=== PATIENT | female | born 1950 | race Caucasian/White ===

== ENCOUNTER 2019-10-31 18:03 | Inpatient (IN) | payer OTHER, BC ==
--- OUTSIDE RECORDS SUMMARY | 2019-10-31 18:10 | XMS REPORT ---
:1950 [facility] Address [address] [place] [address] Dr. Chappell. [address] [place] [id number] Care Team Providers Name Role Phone Unavailable Unavailable Unavailable Problems This patient has no known problems. Allergies, Adverse Reactions, Alerts This patient has no known allergies or adverse reactions. Medications This patient has no known medications.
[2019-10-31 19:26] LABS: ALT/SGPT 22 U/L (12-78); AST/SGOT 17 U/L (15-37); Albumin 3.5 g/dL (3.4-5.0); Alkaline Phosphatase 77 U/L (45-117); BUN Blood Urea Nitrogen 20 mg/dL (7-18); Bicarbonate 29 mmol/L (21-32); Bilirubin Direct < 0.1 mg/dL (0-0.2); Bilirubin Total 0.3 mg/dL (0.2-1.0); Glucose Level 117 mg/dL (74-106); Lipase 92 U/L (73-393); Potassium 4.1 mmol/L (3.5-5.1); Protein, Total 8.1 g/dL (6.4-8.2); Sodium Level 137 mmol/L (136-145)
[2019-10-31 19:27] LABS: Protime INR 0.97
[2019-10-31 19:29] LABS: Absolute Lymphocytes (CBC) 0.8 K/uL (0.7-4.9); Basophils % 0.5 % (0-1.3); Hematocrit 44.1 % (36.0-45.0); Lymphocytes % 6.4 % (15.3-44.8); MPV 9.4 fL (7.6-11.3); RBC Red Blood Cell Count 4.91 M/uL (3.86-4.86)
[2019-10-31] MEDS ORDERED: ONDANSETRON 4 MG/2 ML VIAL ONE (19:41)
[2019-10-31] MEDS ORDERED: MORPHINE 4 MG/ML SYR ONE ×2 (19:41→21:35)
--- NOTE | 2019-10-31 20:26 | RAD REPORT ---
EXAM DESCRIPTION: CT - Abdomen Pelvis W Contrast - 10/31/2019 7:50 pm CLINICAL HISTORY: Abd pain;Abdominal distention, patient has a history of abdominal obstruction COMPARISON: No comparisons TECHNIQUE: Biphasic, helical CT imaging of the abdomen and pelvis was performed following 100 ml non -ionic IV contrast. No oral contrast administered. All CT scans are performed using dose optimization technique as appropriate and may include automated exposure control or mA/KV adjustment according to patient size. FINDINGS: No suspicious findings in the lung bases. The liver, spleen, and pancreas show no suspicious findings. Multiple cysts are scattered in the hepa tic parenchyma. No worrisome liver parenchymal finding. Several gallstones are present. No active gal lbladder process seen. No biliary tree dilatation. Symmetric renal function is seen with no hydronephrosis or suspicious renal mass. No pyelonephritis o r acute parenchymal process. Benign renal cysts are present. Urinary bladder is mostly contracted. No bladder abnormality suspected. Uterus and ovaries show no suspicious findings. No adrenal abnormalit ies. Fluid is distended but not dilated with retained fluid. No gastric wall thickening or mass. Duodenum is unremarkable. Proximal jejunum is normal. Mid jejunum to the mid ileum shows multiple dilated smal l bowel loops. There is an abrupt transition in the anterior mid abdomen abutting the anterior abdomi nal wall. No mass lesion seen. There are postsurgical changes to the midline abdomen. The umbilicus i s not clearly defined. Adhesion is most likely etiology for the small bowel obstruction. Distal to th e transition point the small bowel is decompressed. Most of the colon is decompressed. There is stool in the cecum and ascending colon. No acute colon finding. No free air, free fluid or inflammatory s tranding. No mass or bulky lymphadenopathy. No suspicious bony findings. IMPRESSION: Small bowel obstruction pattern with an abrupt transition mid ileum level where the silvia l abuts the anterior abdominal wall approximate level of the umbilicus. No mass is present. Adhesion is the most likely etiology. No free air, abscess or surgically emergent finding.
--- NOTE | 2019-10-31 20:30 | RAD REPORT ---
EXAM DESCRIPTION: RAD - Chest Single View - 10/31/2019 7:23 pm CLINICAL HISTORY: ABDOMINAL DISTENTION, abdominal pain, history of bowel obstruction COMPARISON: No comparisons TECHNIQUE: AP portable chest image was obtained 10/31/2019 7:23 pm . FINDINGS: No focal mass or consolidation. No significant failure or volume overload. Prominent inter stitial opacification present. This is most likely chronic fibrosis. No comparison is available. Mild edema or infiltrate are possible. Heart and vasculature are normal. No measurable pleural effusion a nd no pneumothorax. No acute bony abnormality seen. No acute aortic findings suspected. IMPRESSION: Prominent interstitial lung pattern most likely fibrosis.
[2019-10-31] MEDS ORDERED: NA CHLORIDE 0.9% 1,000 ML ONE (21:21)
--- NOTE | 2019-10-31 21:32 | ER ---
Nurse's Notes [facility] Name: Korina Flores Age: 69 yrs Sex: Female : 1950 Arrival Date: 10/31/2019 Time: 18:05 Bed 16 Private MD: Diagnosis: Small bowel obstruction Presentation: 10/31 18:22 Presenting complaint: Patient states: I have constipation and bowel blockage before iw which I had 3 surgeries for a long time ago. Around noon today, I have been having cramps and my abdomen is distended. Denies N/V at this time. Reports BM twice today, last time was 1645. Transition of care: patient was not received from another setting of care. Onset of symptoms was October 31, 2019. Risk Assessment: Do you want to hurt yourself or someone else? Patient reports no desire to harm self or others. Initial Sepsis Screen: Does the patient meet any 2 criteria? No. Patient's initial sepsis screen is negative. Does the patient have a suspected source of infection? No. Patient's initial sepsis screen is negative. Care prior to arrival: None. 18:22 Method Of Arrival: Ambulatory iw 18:22 Acuity: SARY 3 iw Triage Assessment: 18:27 General: Appears in no apparent distress. uncomfortable, Behavior is calm, cooperative, iw appropriate for age. Historical: - Allergies: 18:27 PENICILLINS; iw - PMHx: 18:27 COPD; Asthma; Hypothyroidism; iw - PSHx: 18:27 Appendectomy; Abdominal Surgeries for the blockage x 3; iw - Immunization history:: Adult Immunizations up to date, Pneumococcal vaccine is up to date, Flu vaccine is up to date. - Coronavirus screen:: The patient has NOT traveled to [place] in the past 14 days. The patient has NOT had contact with known/suspected case of Coronavirus?. - Social history:: Smoking status: Patient denies any tobacco usage or history of. - Ebola Screening: : Patient negative for fever greater than or equal to 101.5 degrees Fahrenheit, and additional compatible Ebola Virus Disease symptoms Patient denies exposure to infectious person Patient denies travel to an Ebola-affected area in the 21 days before illness onset No symptoms or risks identified at this time. Screenin:37 Abuse screen: Denies threats or abuse. Denies injuries from another. Nutritional hb screening: No deficits noted. Tuberculosis screening: No symptoms or risk factors identified. Fall Risk None identified. Assessment: 18:37 General: Appears in no apparent distress. Behavior is calm, cooperative. Pain: Pain hb currently is 10 out of 10 on a pain scale. Neuro: Level of Consciousness is awake, alert, obeys commands, Oriented to person, place, time, situation. Cardiovascular: Capillary refill < 3 seconds Patient's skin is warm and dry. Respiratory: Airway is patent Respiratory effort is even, unlabored, Respiratory pattern is regular, symmetrical. GI: Abdomen is distended, Bowel sounds present X 4 quads. Abd is soft and non tender X 4 quads. : No signs and/or symptoms were reported regarding the genitourinary system. EENT: No signs and/or symptoms were reported regarding the EENT system. Derm: Skin is pink, warm \T\ dry. Musculoskeletal: No signs and/or symptoms reported regarding the musculoskeletal system. 20:00 Reassessment: Patient appears in no apparent distress at this time. Patient and/or rv family updated on plan of care and expected duration. Pain level reassessed. Patient is alert, oriented x 3, equal unlabored respirations, skin warm/dry/pink. PATIENT HAD AN EPISODE OF DESATURATION. OXYGEN SUPPLEMENT AT 3 LPM. Reassessment: Patient appears in no apparent distress at this time. Patient and/or family updated on plan of care and expected duration. Pain level reassessed. Patient is alert, oriented x 3, equal unlabored respirations, skin warm/dry/pink. 21:17 Reassessment: Patient appears in no apparent distress at this time. Patient and/or rv family updated on plan of care and expected duration. Pain level reassessed. Patient is alert, oriented x 3, equal unlabored respirations, skin warm/dry/pink. Vital Signs: 18:27 BP 115 / 87; Pulse 94; Resp 16 S; Temp 98.1(O); Pulse Ox 92% on R/A; Weight 64.86 kg iw (R); Height 5 ft. 5 in. (165.10 cm) (R); Pain 10/10; 20:00 BP 103 / 58; Pulse 84; Resp 15; Pulse Ox 96% on R/A; rv 21:00 BP 122 / 76; Pulse 87; Resp 17; Pulse Ox 99% on 3 lpm NC; rv 22:00 BP 132 / 76; Pulse 82; Resp 17; Pulse Ox 98% on R/A; rv 23:00 BP 104 / 61; Pulse 83; Resp 14; Pulse Ox 97% on R/A; rv 18:27 Body Mass Index 23.80 (64.86 kg, 165.10 cm) iw 21:00 PATIENT HAD AN EPISODE OF DESATURATION rv ED Course: 18:05 Patient arrived in ED. as 18:25 Triage completed. iw 18:27 Arm band placed on right wrist. iw 18:28 Akanksha Renee, RN is Primary Nurse. hb 18:32 Hardy Mercado PA is PHCP. cp 18:32 Duong English MD is Attending Physician. cp 18:37 Patient has correct armband on for positive identification. Bed in low position. Call hb light in reach. Side rails up X 1. 18:56 Inserted saline lock: 22 gauge in left antecubital area, using aseptic technique. Blood hb collected. 19:21 Amos Waggoner MD is Attending Physician. cp 21:30 Alonso Roque MD is Hospitalizing Provider. cp 23:21 Primary Nurse role handed off by Akanksha Renee RN rv 23:21 Jn Orellana, JANINE is Primary Nurse. rv 23:55 No provider procedures requiring assistance completed. Patient admitted, IV remains in rv place. Administered Medications: 19:40 Drug: morphine 4 mg Route: IVP; Site: right antecubital; 21:23 Follow up: Response: No adverse reaction; Pain is decreased; RASS: Alert and Calm (0) rv 19:42 Drug: Zofran 4 mg Route: IVP; Site: right antecubital; wh 21:23 Follow up: Response: No adverse reaction rv 21:23 Drug: NS 0.9% 1000 ml Route: IV; Rate: 1000 ml/hr; Site: right antecubital; rv 23:59 Follow up: IV Status: Completed infusion; IV Intake: 1000ml rv 21:35 Drug: morphine 4 mg {Note: RASS 0.} Route: IVP; Site: right antecubital; rv 23:58 Follow up: Response: No adverse reaction; Pain is decreased; RASS: Alert and Calm (0) rv 21:37 Drug: metroNIDAZOLE 500 mg Volume: 100 ml; Route: IVPB; Infused Over: 30 mins; Site: rv right antecubital; 22:08 Follow up: IV Status: Completed infusion rv 22:08 Drug: Cipro 400 mg Volume: 200 ml; Route: IVPB; Infused Over: 60 mins; Site: right rv antecubital; 23:58 Follow up: IV Status: Completed infusion rv Intake: 23:59 IV: 1000ml; Total: 1000ml. rv Outcome: 21:31 Decision to Hospitalize by Provider. cp 11/01 00:00 Admitted to Med/surg accompanied by nurse, via wheelchair, room 216, with chart, Report rv called to RD MEHTA Condition: good Discharge instructions given to patient, Instructed on the need for admit, Demonstrated understanding of instructions. 00:00 Patient left the ED. rv Signatures: Brinda Rosado Irene, RN RN Hardy Mercado PA PA cp Akanksha Renee RN RN Rod Hamilton Jn Orellana RN RN rv Corrections: (The following items were deleted from the chart) 10/31 19:00 18:56 Inserted saline lock: 22 gauge in right antecubital area, using aseptic hb technique. Blood collected. hb 23:51 21:13 BP 132 / 76; Pulse 82bpm; Resp 17bpm; Pulse Ox 98% RA; rv rv
--- NOTE | 2019-10-31 21:32 | EDPHYS ---
Physician Documentation [facility] Name: Kornia Flores Age: 69 yrs Sex: Female : 1950 Arrival Date: 10/31/2019 Time: 18:05 Bed 16 Private MD: ED Physician Amos Waggoner HPI: 10/31 18:45 This 69 yrs old Female presents to ER via Ambulatory with complaints of cp Constipation. 18:45 The patient presents with abdominal pain that is diffuse, abdominal distention that is cp diffuse. Onset: The symptoms/episode began/occurred today. 18:45 The symptoms do not radiate. Associated signs and symptoms: Pertinent positives: cp constipation, nausea, Pertinent negatives: diarrhea, fever, vomiting. The patient has experienced similar episodes in the past, today's symptoms are similar, to when the patient was apparently diagnosed with small bowel obstruction. Historical: - Allergies: 18:27 PENICILLINS; iw - PMHx: 18:27 COPD; Asthma; Hypothyroidism; iw - PSHx: 18:27 Appendectomy; Abdominal Surgeries for the blockage x 3; iw - Immunization history:: Adult Immunizations up to date, Pneumococcal vaccine is up to date, Flu vaccine is up to date. - Coronavirus screen:: The patient has NOT traveled to [place] in the past 14 days. The patient has NOT had contact with known/suspected case of Coronavirus?. - Social history:: Smoking status: Patient denies any tobacco usage or history of. - Ebola Screening: : Patient negative for fever greater than or equal to 101.5 degrees Fahrenheit, and additional compatible Ebola Virus Disease symptoms Patient denies exposure to infectious person Patient denies travel to an Ebola-affected area in the 21 days before illness onset No symptoms or risks identified at this time. ROS: 18:50 Constitutional: Negative for body aches, chills, fever, poor PO intake. cp 18:50 Eyes: Negative for injury, pain, redness, and discharge. cp 18:50 ENT: Negative for drainage from ear(s), ear pain, sore throat, difficulty swallowing, difficulty handling secretions. 18:50 Cardiovascular: Negative for chest pain, palpitations. 18:50 Respiratory: Negative for cough, shortness of breath, wheezing. 18:50 Abdomen/GI: Positive for abdominal pain, nausea, constipation, Negative for vomiting, diarrhea, black/tarry stool, rectal bleeding. 18:50 : Negative for urinary symptoms. 18:50 Skin: Negative for cellulitis, rash. 18:50 Neuro: Negative for altered mental status, headache, weakness. 18:50 All other systems are negative. Exam: 19:00 Constitutional: The patient appears in no acute distress, alert, awake, cp non-diaphoretic, non-toxic, well developed, well nourished, uncomfortable. 19:00 Head/Face: Normocephalic, atraumatic. cp 19:00 Eyes: Periorbital structures: appear normal, Conjunctiva: normal, no exudate, no injection, Sclera: no appreciated abnormality, Lids and lashes: appear normal, bilaterally. 19:00 ENT: External ear(s): are unremarkable, Nose: is normal, Mouth: Lips: moist, Oral mucosa: pink and intact, moist, Posterior pharynx: is normal, airway is patent, no erythema, no exudate. 19:00 Chest/axilla: Inspection: normal, Palpation: is normal, no crepitus, no tenderness. 19:00 Cardiovascular: Rate: normal, Rhythm: regular, Edema: is not appreciated, JVD: is not appreciated. 19:00 Respiratory: the patient does not display signs of respiratory distress, Respirations: normal, no use of accessory muscles, no retractions, labored breathing, is not present, Breath sounds: are clear throughout, no decreased breath sounds, no stridor, no wheezing. 19:00 Abdomen/GI: Inspection: scar(s), are noted in the midline lower abdomen, Bowel sounds: active, all quadrants, Palpation: soft, in all quadrants, moderate abdominal tenderness, in all quadrants, voluntary guarding, is elicited in all quadrants. 19:00 Back: pain, is absent, ROM is normal. 19:00 Neuro: Orientation: to person, place \T\ time. Mentation: is normal, Motor: moves all fours, strength is normal. 19:15 ECG was reviewed by the Attending Physician. cp Vital Signs: 18:27 BP 115 / 87; Pulse 94; Resp 16 S; Temp 98.1(O); Pulse Ox 92% on R/A; Weight 64.86 kg iw (R); Height 5 ft. 5 in. (165.10 cm) (R); Pain 10/10; 20:00 BP 103 / 58; Pulse 84; Resp 15; Pulse Ox 96% on R/A; rv 21:00 BP 122 / 76; Pulse 87; Resp 17; Pulse Ox 99% on 3 lpm NC; rv 22:00 BP 132 / 76; Pulse 82; Resp 17; Pulse Ox 98% on R/A; rv 23:00 BP 104 / 61; Pulse 83; Resp 14; Pulse Ox 97% on R/A; rv 18:27 Body Mass Index 23.80 (64.86 kg, 165.10 cm) iw 21:00 PATIENT HAD AN EPISODE OF DESATURATION rv MDM: 18:34 Patient medically screened. cp 21:30 Data reviewed: vital signs, nurses notes, lab test result(s), radiologic studies, CT cp scan, plain films, and as a result, I will admit patient. 21:30 Test interpretation: by ED physician or midlevel provider: ECG, plain radiologic cp studies, chest xray negative for infiltrates. 10/31 18:43 Order name: Basic Metabolic Panel cp 10/31 18:43 Order name: CBC with Diff cp 10/31 18:43 Order name: LFT's cp 10/31 18:43 Order name: Magnesium cp 10/31 18:43 Order name: PT-INR cp 10/31 18:43 Order name: Lipase cp 10/31 19:27 Order name: Basic Metabolic Panel; Complete Time: 20:29 EDMS 10/31 20:29 Interpretation: Normal except: GLUC 117; BUN 20; GFR 61. cp 10/31 19:27 Order name: Liver (Hepatic) Function; Complete Time: 20:29 EDMS 10/31 21:27 Interpretation: Normal except: GLOB 4.6; A/G 0.8. cp 10/31 19:27 Order name: Magnesium; Complete Time: 20:29 EDMS 10/31 19:27 Order name: Lipase; Complete Time: 20:29 EDMS 02 19:41 Order name: CBC with Automated Diff EDMS 10/31 20:29 Interpretation: Normal except: WBC 13.1; RBC 4.91; SAVANAH% 87.2; LYM% 6.4; NEUT A 11.4. cp 10/31 19:41 Order name: Protime (+INR); Complete Time: 20:29 EDMS 10/31 21:18 Order name: Urine Microscopic Only 10/31 21:57 Order name: Urine Microscopic Only EDMA 10/31 18:43 Order name: XRAY Chest (1 view) 10/31 18:43 Order name: EKG; Complete Time: 18:47 10/31 18:43 Order name: Cardiac monitoring; Complete Time: 19:28 10/31 18:43 Order name: EKG - Nurse/Tech; Complete Time: 19:27 10/31 19:03 Order name: CT Abd/Pelvis - IV Contrast Only 10/31 20:31 Order name: CT; Complete Time: 21:23 EDMA 10/31 21:30 Interpretation: Report reviewed. 10/31 20:38 Order name: RAD; Complete Time: 21:23 [facility] 10/31 21:58 Order name: CBC Smear Scan [facility] 10/31 22:10 Order name: Urine Dipstick--Ancillary (enter results) ar5 10/31 23:49 Order name: Urine Dipstick-Ancillary [facility] 10/31 18:43 Order name: IV Saline Lock; Complete Time: 18:56 10/31 18:43 Order name: Labs collected and sent; Complete Time: 18:56 10/31 18:43 Order name: O2 Per Protocol; Complete Time: 18:56 10/31 18:43 Order name: O2 Sat Monitoring; Complete Time: 18:56 10/31 21:18 Order name: Urine Dipstick-Ancillary (obtain specimen); Complete Time: 21:42 cp EC:15 Rate is 78 beats/min. Rhythm is regular. MO interval is normal. QRS interval is normal. cp QT interval is normal. T waves are Inverted in leads aVL, V2. Interpreted by me. Reviewed by me. Administered Medications: 19:40 Drug: morphine 4 mg Route: IVP; Site: right antecubital; wh 21:23 Follow up: Response: No adverse reaction; Pain is decreased; RASS: Alert and Calm (0) rv 19:42 Drug: Zofran 4 mg Route: IVP; Site: right antecubital; wh 21:23 Follow up: Response: No adverse reaction rv 21:23 Drug: NS 0.9% 1000 ml Route: IV; Rate: 1000 ml/hr; Site: right antecubital; rv 23:59 Follow up: IV Status: Completed infusion; IV Intake: 1000ml rv 21:35 Drug: morphine 4 mg {Note: RASS 0.} Route: IVP; Site: right antecubital; rv 23:58 Follow up: Response: No adverse reaction; Pain is decreased; RASS: Alert and Calm (0) rv 21:37 Drug: metroNIDAZOLE 500 mg Volume: 100 ml; Route: IVPB; Infused Over: 30 mins; Site: rv right antecubital; 22:08 Follow up: IV Status: Completed infusion rv 22:08 Drug: Cipro 400 mg Volume: 200 ml; Route: IVPB; Infused Over: 60 mins; Site: right rv antecubital; 23:58 Follow up: IV Status: Completed infusion rv Disposition: 11/01 00:43 Co-signature as Attending Physician, Amos Waggoner MD. rn Disposition: 10/31/19 21:31 Hospitalization ordered by Alonso Roque for Inpatient Admission. Preliminary diagnosis is Small bowel obstruction. - Bed requested for Telemetry/MedSurg (Inpatient). - Status is Inpatient Admission. rv - Condition is Stable. - Problem is new. - Symptoms have improved. Signatures: Dispatcher [employer] EDMS Kathi Yoo RN RN mw Williams, Irene, RN RN iw Nieto, Roman, MD MD rn Page, Corey, PA PA cp Habalo, Winsy wh Vicente, Ronaldo, RN RN rv Corrections: (The following items were deleted from the chart) 10/31 20:29 20:29 Normal except: WBC 13.1; RBC 4.91. cp cp 23:43 21:31 Hospitalization Ordered by Alonso Roque MD for Inpatient Admission. Preliminary mw diagnosis is Small bowel obstruction. Bed requested for Telemetry/MedSurg (Inpatient). Status is Inpatient Admission. Condition is Stable. Problem is new. Symptoms have improved. cp 11/01 00:00 10/31 23:43 10/31/2019 21:31 Hospitalization Ordered by Alonso Roque MD for Inpatient rv Admission. Preliminary diagnosis is Small bowel obstruction. Bed requested for Telemetry/MedSurg (Inpatient). Status is Inpatient Admission. Condition is Stable. Problem is new. Symptoms have improved. mw
[2019-10-31] MEDS ORDERED: CIPROFLOXACIN 400mg IV 400 MG/200 ML BAG IV ONE (21:35)
[2019-10-31] MEDS ORDERED: METRONIDAZOLE 500mg IVPB 500 MG/100 ML BAG IV ONE (21:35)
[2019-10-31 21:56] LABS: Urine Bacteria <20 /HPF (<20); Urine Culture Reflex Order REFLEXED; Urine Mucus 1+ /HPF (NONE SEEN)
[2019-10-31 21:58] LABS: Blood Morphology Comment NOT SEEN (NOT SEEN); Platelet Estimate ADEQ; Urine White Blood Cell Casts OK
[2019-10-31] MEDS ORDERED: ACETAMINOPHEN 650MG/RECT SUPP RECT PRN (23:18)
[2019-10-31] MEDS ORDERED: ONDANSETRON 4 MG/2 ML VIAL IV PRN (23:18)
[2019-10-31] MEDS ORDERED: NA CHLORIDE 0.9% 1,000 ML IV SCH (23:45)
[2019-10-31 23:48] LABS: Urine Blood TRACE (NEG); Urine Glucose NEGATIVE (NEG); Urine Protein NEGATIVE (NEG)
[2019-11-01] MEDS ORDERED: NA CHLORIDE 0.9% 1,000 ML with POTASSIUM CL 20 MEQ IV SCH ×2 (01:01)
[2019-11-01] MEDS ORDERED: ONDANSETRON 4 MG/2 ML VIAL IV PRN (02:10)
[2019-11-01] MEDS ORDERED: NS KCL 20MEQ 1,000 ML IV ONE (02:17)
[2019-11-01] MEDS: METRONIDAZOLE 500mg IVPB 500 MG/100 ML BAG IV SCH ×5 (02:22→23:30)
[2019-11-01 04:38] LABS: Protime INR 0.9
[2019-11-01 04:55] LABS: Absolute Lymphocytes (CBC) 0.3 K/uL (0.7-4.9); Basophils % 0.1 % (0-1.3); Hematocrit 40.3 % (36.0-45.0); Lymphocytes % 2.2 % (15.3-44.8); MPV 9.8 fL (7.6-11.3); RBC Red Blood Cell Count 4.47 M/uL (3.86-4.86)
[2019-11-01 05:01] LABS: Bilirubin Total 0.3 mg/dL (0.2-1.0); Magnesium 1.8 mg/dL (1.8-2.4); Phosphorus 2.8 mg/dL (2.5-4.9); Potassium 4.4 mmol/L (3.5-5.1)
[2019-11-01 06:12] VITALS: BMI 27.0
[2019-11-01] MEDS ORDERED: ALBUTEROL 2.5 MG/3 ML NEB SOL NEB PRN ×2 (07:03→15:00)
--- NOTE | 2019-11-01 07:58 | RAD REPORT ---
EXAM DESCRIPTION: RAD - Abdomen 1 View (KUB) - 11/01/2019 7:27 am CLINICAL HISTORY: follow up SBO COMPARISON: Abdomen Pelvis W Contrast dated 10/31/2019 FINDINGS: NG tube is in good position. Tip is in the antrum or duodenal bulb. Stomach is decompresse d. Contrast is present in the urinary bladder. Stool is present in the left side of the colon. This p ortion of the colon was previously decompressed on the prior day CT study. This would indicate antegr lorenzo movement of bowel content in the colon. Fluid-filled small bowel loops can be occult on the plain film. No progression of the small bowel obstruction process. No free air or pneumatosis. IMPRESSION: NG tube in good position. Stomach is decompressed. No progression of the small bowel traction pattern. No free air or pneumatosis. The presence of stool in the previously decompressed left-side of the colon indicates antegrade movem ent of bowel content through the colon.
[2019-11-01] MEDS: TIOTROPIUM 5 SPRAYS/INHALER IH SCH (09:00)
[2019-11-01] MEDS: NS KCL 20MEQ 1,000 ML IV SCH ×2 (10:02→17:27)
[2019-11-01] MEDS: Levofloxacin500mg IV 500 MG/100 ML BAG IV SCH (10:02)
[2019-11-01] MEDS: ENOXAPARIN 40 MG/0.4 ML SQ SCH (10:03)
--- NOTE | 2019-11-01 10:08 | P.HP ---
Certification for Inpatient Patient admitted to: Inpatient With expected LOS: >2 Midnights Patient will require the following post-hospital care: None Practitioner: I am a practitioner with admitting privileges, knowledge of patient current condition, hospital course, and medical plan of care. Services: Services provided to patient in accordance with Admission requirements found in Title 42 Section 412.3 of the Code of Federal Regulations Patient History Date of Service: 11/01/19 Reason for admission: Small-bowel obstruction History of Present Illness: Patient is a 69-year-old female who came into the hospital with abdominal pain. She was having some nausea and she had 1 episode of vomiting at home. She has had a history of multiple abdominal surgeries. He said he started having abdominal issues after she had a ruptured appendix while she was visiting [facility]. She said the surgery when really bad she developed an abdominal infection. She was left with adhesions and scar tissue because of the surgery. Over the last 5-10 years she has done relatively well. She has not needed a hospital admission for obstruction in that time period. However, over the last 24 hours she has been having some abdominal pain /discomfort and she also developed some nausea. She had the vomiting and came to the hospital because she felt like she was developing an obstruction. In the emergency room , CT scan revealed patient had a complete small bowel obstruction with transition point around the ileum where the bowel abuts the anterior abdominal wall approximate level of the umbilicus. Patient was admitted to the hospital. We placed an NG tube. General surgery consultation was also obtained. Continue with IV hydration and IV antibiotics. Allergies Penicillins Allergy (Verified 10/31/19 23:18) Hives/Rash Home Medications: Aspirin 1 tab PO BEDTIME 11/01/19 Calcium Carbonate [Calcium] 1 tab PO DAILY 11/01/19 Docusate Sodium [Dulcolax Stool Softener] 1 tab PO BID 11/01/19 Fluticasone [Flovent Hfa 110*] 2 inh IH BID 11/01/19 Levothyroxine Sodium 1 tab PO [id number] 11/01/19 Liothyronine Sodium [Cytomel] 1 tab PO [id number] 11/01/19 Mometasone/Formoterol [Dulera 100 Mcg/5 Mcg Inhaler] 2 inh IH BEDTIME 11/01/19 Tiotropium [place] [Spiriva] 2.5 mcg IH DAILY 11/01/19 - Past Medical/Surgical History Has patient received pneumonia vaccine in the past: Yes Diabetic: No -: COPD -: asthma -: bowel obstructions -: hypothyroid -: osteoparosis -: appendectomy -: ovary removal -: abdominal surgery due adhesions x3 - Family History Brother Medical History: Kidney disease - Social History Smoking Status: Former smoker Alcohol use: No CD- Drugs: No Place of Residence: Home Review of Systems 10-point ROS is otherwise unremarkable Physical Examination - Vital Signs Temperature: 98.2 F Blood Pressure: 118/60 Pulse: 93 Respirations: 19 Pulse Ox (%): 88 - Physical Exam General: Alert, In no apparent distress, Oriented x3 HEENT: Atraumatic, PERRLA, Mucous membr. moist/pink, EOMI, Sclerae nonicteric Neck: Supple, 2+ carotid pulse no bruit, No LAD, Without JVD or thyroid abnormality Respiratory: Clear to auscultation bilaterally, Normal air movement Cardiovascular: Regular rate/rhythm, Normal S1 S2, No murmurs Gastrointestinal: Normal bowel sounds, Soft and benign, Non-distended, No tenderness, No rebound, No guarding Musculoskeletal: No clubbing, No swelling, No tenderness Integumentary: No rashes Neurological: Normal gait, Normal speech, Normal strength at 5/5 x4 extr, Normal tone, Sensation intact, Cranial nerves 3-12 intact, Normal affect Lymphatics: No axilla or inguinal lymphadenopathy - Studies Laboratory Data (last 24 hrs) 10/31/19 18:55: PT 11.5, INR 0.97 10/31/19 18:55: WBC 13.1 H, Hgb 14.9, Hct 44.1, Plt Count 272 10/31/19 18:55: Sodium 137, Potassium 4.1, BUN 20 H, Creatinine 0.91, Glucose 117 H, Magnesium 2.0, Total Bilirubin 0.3, AST 17, ALT 22, Alkaline Phosphatase 77, Lipase 92 Assessment & Plan - Problems (Diagnosis) (1) Small bowel obstruction Current Visit: Yes Status: Acute (2) History of major abdominal surgery Current Visit: Yes Status: Acute - Plan -management per surgery -PT evaluation -DVT prophylaxis -IV hydration and IV antibiotics -NPO -strict blood pressure and blood sugar control -monitor electrolytes and blood count closely -DC [place] catheter in 24 hr -pain control Discharge Plan: Home Plan to discharge in: 48 Hours - Advance Directives Does patient have a Living Will: Yes Does patient have a Durable POA for Healthcare: Yes - Code Status/Comfort Care Code Status Assessed: Yes Code Status: Full Code Critical Care: No Time Spent Managing PTS Care (In Minutes): 45
--- NOTE | 2019-11-01 11:37 | P.PN ---
Subjective Date of Service: 11/01/19 Primary Care Provider: Dr. Scott, transitioning to Dr. Parmar Chief Complaint: Small-bowel obstruction Subjective: Improving (Patient reports some improvement. She was able pass some gas today. No bowel movement noted. Nausea improved.) Physical Examination - Vital Signs Temperature: 98.2 F Blood Pressure: 118/60 Pulse: 93 Respirations: 19 Pulse Ox (%): 88 - Physical Exam General: Alert, Cooperative HEENT: Atraumatic Neck: Supple Respiratory: Clear to auscultation bilaterally, Normal air movement Cardiovascular: Normal pulses, Regular rate/rhythm Gastrointestinal: Hypoactive, No tenderness, No masses, No rebound, No guarding Musculoskeletal: No erythema, No tenderness, No warmth Integumentary: No tenderness/swelling, No erythema, No warmth, No cyanosis Neurological: Normal speech, Normal strength at 5/5 x4 extr, Normal tone, Normal affect - Studies Laboratory Data (last 24 hrs) 10/31/19 18:55: PT 11.5, INR 0.97 10/31/19 18:55: WBC 13.1 H, Hgb 14.9, Hct 44.1, Plt Count 272 10/31/19 18:55: Sodium 137, Potassium 4.1, BUN 20 H, Creatinine 0.91, Glucose 117 H, Magnesium 2.0, Total Bilirubin 0.3, AST 17, ALT 22, Alkaline Phosphatase 77, Lipase 92 Medications List Reviewed: Yes Assessment & Plan Discharge Plan: Home Plan to discharge in: 48 Hours Physician Review Additional Text: Impression: Abdominal pain, nausea and vomiting secondary to partial small bowel obstruction Acute renal injury likely from dehydration COPD Hypothyroidism Plan: Abdominal pain, nausea and vomiting secondary to partial small bowel obstruction : Patient has NG tube in place. X-ray shows some improvement and no progression of small-bowel obstruction. Await recommendations from surgery. Anticipate improvement. Anticipate clear liquid diet within the next 24 hr. Await surgery evaluation. Will continue to monitor closely. Continue IV fluids , antibiotic therapy. Acute renal injury likely from dehydration: Continue IV antibiotic therapy and current treatment. COPD: Will provide medication for COPD. Maintain oxygen saturations above 93%. Hypothyroidism: Continue medication. Will provide medication IV. Time Spent Managing Pts Care (In Minutes): 55
--- NOTE | 2019-11-01 13:36 | EKG ---
Test Date: 2019-10-31 Test Time: 19:08:32 Foam Fabricator: HARPAL MEASUREMENT RESULTS: Intervals: Rate: 78 IL: 152 QRSD: 70 QT: 378 QTc: 430 [place]: P: 74 IL: 152 QRS: 31 T: 70 INTERPRETIVE STATEMENTS: Normal sinus rhythm Low voltage QRS Cannot rule out Anterior infarct, age undetermined Abnormal ECG No previous ECG available for comparison Electronically Signed On 11-01-19 13:35:52 [employer] [place]ARCH by Sid Alcazar
--- NOTE | 2019-11-01 20:38 | CON ---
Date of Consultation: 11/01/2019 Reason For Consultation: Small bowel obstruction. History Of Present Illness: This is the case of a 69-year-old patient with extensive surgical histor y, complain to us with abdominal bloating she felt like that and she came to the ER since she thought she had an obstruction. She is not new to this. She stated that several times, she has been admitt ed for small bowel obstruction. Last time, she was even waiting for 15 days until she open. This in itially came as patient claimed as first surgery was a ruptured appendix; then, after that, explorato ry laparotomy for bowel obstruction, and this happened first in [place], second time in [facility]. After that, she has been having some aches back and forth, but not surgery yet. She feels better today co mpared with the last 3 days. She is not passing flatus yet and no vomiting. NG tube was in place. She denies any dysuria, hematuria, hematochezia, or melena. Denies any recent traveling out of the [facility]. Denies any family member sick at home. Allergies: PENICILLINS. Past Surgical History: As above. Social History: She does not smoke. She does not drink alcohol. Past Medical History: Include COPD, asthma, bowel obstructions, hypothyroidism. Family History: Family history of pulmonary history kidney disease. Review of Systems: Ten points otherwise unremarkable. Physical Examination: General: Patient is awake and alert. HEENT: Pupils are equal and reactive, anicteric. Neck: Supple. Chest: Clear. Abdomen: Soft and depressible. No peritonitis. Multiple incisions in the abdomen. Rectal: Deferred. Extremities: Good capillary refill. Imaging: CAT scan shows small bowel obstruction, Laboratory Data: Blood work shows WBC count of 14.8. Assessment: This 69-year-old patient with bowel obstruction. She is not new to this. She has multi ple surgeries, at least 5 surgeries for this. Last time, she awaited 15 days before she even conside red surgery since she is easily open. She understands that we can wait certain days, but after that, we have to be concerned about compromise of intestines and also nutrition. Over the next 48 to 72 h ours, we will see how she develops. She is tolerating ambulation, and she apparently knows what to d o. She is trying everything she can, trying to avoid surgery, and she understands the risks and bene fits of laparotomy since she had this before, which included, but not limited to, infection, bleeding , damage to adjacent structures, anesthesia complication, nonhealing wound, myocardia infarction, and even . We are going to trying to just please her on her plans, so I would like conservative tr eatment up to a point if she becomes clinically unstable. HM/MODL Voice ID: [id number] Report ID: [id number]
[2019-11-01] MEDS: DULERA 100/5 (MOMETASONE/FORMOTEROL) INHALER IH SCH (20:43)
[2019-11-01] MEDS ORDERED: Levofloxacin500mg IV 500 MG/100 ML BAG IV SCH (22:00)
[2019-11-02] MEDS: NS KCL 20MEQ 1,000 ML IV SCH (03:07)
[2019-11-02] MEDS: METRONIDAZOLE 500mg IVPB 500 MG/100 ML BAG IV SCH ×3 (05:10→17:07)
[2019-11-02] MEDS: LEVOTHYROXINE SODIUM 100 MCG VIAL IV SCH (05:10)
[2019-11-02 05:15] LABS: Magnesium 1.9 mg/dL (1.8-2.4); Potassium 4.1 mmol/L (3.5-5.1)
[2019-11-02 05:27] LABS: Absolute Lymphocytes (CBC) 1.1 K/uL (0.7-4.9); Basophils % 0.3 % (0-1.3); Hematocrit 36.1 % (36.0-45.0); Lymphocytes % 20.3 % (15.3-44.8); MPV 9.4 fL (7.6-11.3)
[2019-11-02] MEDS: D5 0.45 NS 1,000 ML IV SCH ×2 (08:12→21:36)
[2019-11-02] MEDS: ENOXAPARIN 40 MG/0.4 ML SQ SCH (08:14)
[2019-11-02] MEDS: Levofloxacin500mg IV 500 MG/100 ML BAG IV SCH (08:14)
[2019-11-02] MEDS: TIOTROPIUM 5 SPRAYS/INHALER IH SCH (08:15)
--- NOTE | 2019-11-02 09:49 | RAD REPORT ---
EXAM DESCRIPTION: RAD - Abdomen 1 View (KUB) - 11/02/2019 9:14 am CLINICAL HISTORY: Abdomen pain. FINDINGS: Evaluation of small-bowel dilatation is limited on this supine view as the recent CT scan demonstrates little air within the dilated small bowel Air is seen within portions of the colon. Nasogastric tube has its tip in the distal stomach
--- NOTE | 2019-11-02 10:59 | P.PN ---
Subjective Date of Service: 11/02/19 Primary Care Provider: Dr. Scott, transitioning to Dr. Parmar Chief Complaint: Small-bowel obstruction Subjective: Improving (Patient improving. Pain improved. Patient is passing gas. No bowel movement yet.) Physical Examination - Vital Signs Temperature: 97.0 F Blood Pressure: 132/67 Pulse: 70 Respirations: 18 Pulse Ox (%): 94 - Physical Exam General: Alert, In no apparent distress, Oriented x3, Cooperative HEENT: Atraumatic Neck: Supple Respiratory: Clear to auscultation bilaterally, Normal air movement Cardiovascular: Normal pulses, Regular rate/rhythm Gastrointestinal: Other (More active bowel sounds since yesterday. Less pain noted.) Integumentary: No tenderness/swelling, No erythema, No warmth, No cyanosis Neurological: Normal speech, Normal strength at 5/5 x4 extr, Normal tone, Normal affect - Studies Medications List Reviewed: Yes Assessment & Plan Discharge Plan: Home Plan to discharge in: 72 Hours Physician Review Additional Text: Impression: Abdominal pain, nausea and vomiting secondary to partial small bowel obstruction Acute renal injury likely from dehydration UTI COPD Hypothyroidism Plan: Abdominal pain, nausea and vomiting secondary to partial small bowel obstruction : Patient has done well. Patient remains NPO. Passage of gas noted. No bowel movement yet. Await further recommendations from surgery on whether to advance diet. Encourage ambulation. Patient on DVT prophylaxis. Patient remains on antibiotic therapy. Acute renal injury likely from dehydration: Overall improved. Continue with IV fluids. Adjustments made. Electrolyte protocol in place. UTI: Continue with antibiotic therapy. Await urine culture. COPD: Continue with COPD medication. Maintain oxygen saturations above 93%. Hypothyroidism: Continue medication. Will provide medication IV. Time Spent Managing Pts Care (In Minutes): 55
[2019-11-02] MEDS: DULERA 100/5 (MOMETASONE/FORMOTEROL) INHALER IH SCH (21:35)
--- NOTE | 2019-11-02 23:06 | PN ---
Date of Progress Note: 11/02/2019 Diagnosis: Small bowel obstruction. Subjective: Patient doing better. She thinks she passed some gas. Objective: Chest: Clear. Abdomen: Soft and depressible. No guarding or rebound. Extremities: Good capillary refill. Plan: She still wanted to do a conservative treatment. She has no peritonitis. She is ambulating. She is doing what she is suppose to be doing. We still are going to hold the diet, give her some hy dration. In the next day or two, may repeat a small bowel series once the older contrast from the CA T scan is gone. JULIANNA/PRABHA Voice ID: [id number] Report ID: [id number]
[2019-11-03] MEDS: METRONIDAZOLE 500mg IVPB 500 MG/100 ML BAG IV SCH ×4 (00:37→17:13)
[2019-11-03 05:17] LABS: Basophils % 0.5 % (0-1.3); Hematocrit 36.6 % (36.0-45.0); Lymphocytes % 16.5 % (15.3-44.8); RBC Red Blood Cell Count 4.03 M/uL (3.86-4.86)
[2019-11-03] MEDS: LEVOTHYROXINE SODIUM 100 MCG VIAL IV SCH (05:44)
[2019-11-03] MEDS: D5 0.45 NS 1,000 ML IV SCH ×2 (05:45→17:12)
[2019-11-03 07:08] LABS: Magnesium 1.9 mg/dL (1.8-2.4); Potassium 3.2 mmol/L (3.5-5.1)
--- NOTE | 2019-11-03 08:15 | P.PN ---
Subjective Date of Service: 11/03/19 Primary Care Provider: Dr. Scott, transitioning to Dr. Parmar Chief Complaint: Small-bowel obstruction Subjective: Other (Patient continues to improve. Some passage of gas noted today.) Physical Examination - Vital Signs Temperature: 97.4 F Blood Pressure: 129/63 Pulse: 66 Respirations: 18 Pulse Ox (%): 95 - Physical Exam General: Alert, In no apparent distress, Oriented x3, Cooperative HEENT: Atraumatic Neck: Supple Respiratory: Clear to auscultation bilaterally, Normal air movement Cardiovascular: Normal pulses, Regular rate/rhythm Gastrointestinal: Normal bowel sounds (Better bowel sounds today.), No masses, No rebound, No guarding, Tenderness (Minimal pain to the abdomen today. Abdomen soft. Pain has significantly improved.) Musculoskeletal: No erythema, No tenderness, No warmth Integumentary: No erythema, No warmth, No cyanosis Neurological: Normal speech, Normal strength at 5/5 x4 extr, Normal tone, Normal affect - Studies Medications List Reviewed: Yes Assessment & Plan Discharge Plan: Home Plan to discharge in: 48 Hours Physician Review Additional Text: Impression: Abdominal pain, nausea and vomiting secondary to partial small bowel obstruction Acute renal injury likely from dehydration UTI COPD Hypothyroidism Plan: Abdominal pain, nausea and vomiting secondary to partial small bowel obstruction : Patient continues to improve. Encourage incentive spirometer. Encourage ambulation. Patient remains NPO. Passage of gas noted, No bowel movement yet. Will order small-bowel series for tomorrow. If improved by tomorrow, possible initiation of diet. Will discuss with surgery. Continue DVT prophylaxis. Continue antibiotic therapy. Continue monitor lab closely. Anticipate discharge in the next 48-72 hr with clinical improvement. Acute renal injury likely from dehydration: Overall improved. Continue with IV fluids. Electrolyte protocol in place. UTI: Continue with antibiotic therapy. Await urine culture. Gram-negative rods noted on culture. COPD: Continue with COPD medication. Maintain oxygen saturations above 93%. Encourage incentive spirometer. Hypothyroidism: Continue medication. Will provide medication IV. Time Spent Managing Pts Care (In Minutes): 55
[2019-11-03] MEDS: Levofloxacin500mg IV 500 MG/100 ML BAG IV SCH (09:25)
[2019-11-03] MEDS: ENOXAPARIN 40 MG/0.4 ML SQ SCH (09:28)
[2019-11-03] MEDS: TIOTROPIUM 5 SPRAYS/INHALER IH SCH (09:29)
[2019-11-03] MEDS: KCL 20 MEQ/100 mL IVPB 20 MEQ/100 ML BAG IV SCH ×2 (11:20→11:48)
[2019-11-03] MEDS: DULERA 100/5 (MOMETASONE/FORMOTEROL) INHALER IH SCH (20:51)
[2019-11-04] MEDS: METRONIDAZOLE 500mg IVPB 500 MG/100 ML BAG IV SCH ×6 (00:54→23:58)
[2019-11-04] MEDS: LEVOTHYROXINE SODIUM 100 MCG VIAL IV SCH (05:44)
[2019-11-04] MEDS: D5 0.45 NS 1,000 ML IV SCH ×3 (05:46→21:32)
[2019-11-04 05:48] LABS: Absolute Lymphocytes (CBC) 0.9 K/uL (0.7-4.9); Basophils % 0.6 % (0-1.3); Hematocrit 40.2 % (36.0-45.0); Lymphocytes % 15.3 % (15.3-44.8); MPV 8.9 fL (7.6-11.3)
[2019-11-04 05:53] LABS: Magnesium 1.9 mg/dL (1.8-2.4); Potassium 3.4 mmol/L (3.5-5.1)
[2019-11-04] MEDS: KCL 20 MEQ/100 mL IVPB 20 MEQ/100 ML BAG IV SCH ×2 (06:51→10:15)
[2019-11-04] MEDS: Levofloxacin500mg IV 500 MG/100 ML BAG IV SCH (08:47)
[2019-11-04] MEDS: ENOXAPARIN 40 MG/0.4 ML SQ SCH (08:47)
[2019-11-04] MEDS: TIOTROPIUM 5 SPRAYS/INHALER IH SCH (08:48)
--- NOTE | 2019-11-04 09:52 | P.PN ---
Subjective Date of Service: 11/04/19 Primary Care Provider: Dr. Scott, transitioning to Dr. Parmar Chief Complaint: Small-bowel obstruction Subjective: Improving, Other (Patient reports bowel movement last night.) Physical Examination - Vital Signs Temperature: 97.1 F Blood Pressure: 127/65 Pulse: 75 Respirations: 18 Pulse Ox (%): 92 - Physical Exam General: Alert, In no apparent distress, Oriented x3, Cooperative HEENT: Atraumatic Neck: Supple Respiratory: Clear to auscultation bilaterally, Normal air movement Cardiovascular: Normal pulses, Regular rate/rhythm Gastrointestinal: Normal bowel sounds, Soft and benign, Non-distended, No masses , No rebound, No guarding, Tenderness (Minimal pain to the abdomen) Musculoskeletal: No erythema, No tenderness, No warmth Integumentary: No tenderness/swelling, No erythema, No warmth, No cyanosis Neurological: Normal speech, Normal strength at 5/5 x4 extr, Normal tone, Normal affect - Studies Microbiology Data (last 24 hrs): 10/31/19 21:35 Clean Catch Urine [place] Count - Final >100,000 CFU/ML. 10/31/19 21:35 Clean Catch Urine - Final Proteus Mirabilis Medications List Reviewed: Yes Assessment & Plan Discharge Plan: Home Plan to discharge in: 48 Hours Physician Review Additional Text: Impression: Abdominal pain, nausea and vomiting secondary to partial small bowel obstruction Acute renal injury likely from dehydration UTI COPD Hypothyroidism Plan: Abdominal pain, nausea and vomiting secondary to partial small bowel obstruction : Patient continues to improve. She had a bowel movement yesterday. Patient ambulating well. Patient remains NPO. Patient to have small-bowel series today. Await findings. If improvement anticipate initiation of clear liquids. Will discuss further with surgery. If small-bowel series abnormal patient may require surgical intervention. I will turn the service over to the hospitalist team tomorrow. I will go over the plan of care with him. Anticipate discharge likely in the next 48 hr pending clinical improvement. Acute renal injury likely from dehydration: Overall improved. Continue with IV fluids. Electrolyte protocol in place. UTI with urine culture positive for Proteus: Continue with antibiotic therapy. Urine culture positive for Proteus. Current antibiotic sensitive. COPD: Continue with COPD medication. Maintain oxygen saturations above 93%. Encourage incentive spirometer. Hypothyroidism: Continue medication. Will provide medication IV. Will transition to oral medication once taking oral intake. Time Spent Managing Pts Care (In Minutes): 55
--- NOTE | 2019-11-04 17:13 | RAD REPORT ---
EXAM DESCRIPTION: RAD - Small Bowel Series - 11/04/2019 4:50 pm CLINICAL HISTORY: FOLLOW UP SBO Abdominal pain COMPARISON: Abdomen Pelvis W Contrast dated 10/31/2019; Abdomen 1 View (KUB) dated 11/02/2019; Abdom en 1 View (KUB) dated 11/01/2019 FINDINGS: Research Environmental Engineer film shows a nonspecific bowel gas pattern. No obstruction or free air. Several gall stones are present in the right upper quadrant. Nasogastric tube. Gastric size and mucosal fold pattern are normal. No delay in transit of contrast into the small silvia l. Small bowel is normal in diameter with no mucosal fold thickening. No intrinsic or extrinsic mass identifiable. Terminal ileum has normal appearance. Transit time to the colon is normal. No fluoroscopy was performed. Total images acquired: 15 IMPRESSION: Normal small bowel series. Cholelithiasis.
--- NOTE | 2019-11-04 19:51 | PN ---
Date of Progress Note: 11/04/2019 Diagnosis: Small-bowel obstruction. Subjective: Patient doing better. She had a bowel movement today. She thinks she passed some gas. She is ambulating. Review of Systems: 10-points otherwise unremarkable. Objective: Chest: Clear. Abdomen: Soft and depressible. Bowel sounds positive. Extremities: Good capillary refill. Plan: We are going to do a small-bowel series today. If it shows any obstruction, then she may have to consider surgical intervention. If there is no obstruction, then we are going to advance diet. We encouraged her ambulation, and also if the small-bowel series is negative, we will remove the NG t ube. JULIANNA/MODL Voice ID: [id number] Report ID: [id number]
[2019-11-04] MEDS: DULERA 100/5 (MOMETASONE/FORMOTEROL) INHALER IH SCH (21:35)
[2019-11-05 05:07] LABS: Potassium 3.5 mmol/L (3.5-5.1)
[2019-11-05] MEDS: METRONIDAZOLE 500mg IVPB 500 MG/100 ML BAG IV SCH (06:00)
[2019-11-05] MEDS: D5 0.45 NS 1,000 ML IV SCH (06:01)
[2019-11-05] MEDS: LEVOTHYROXINE SODIUM 100 MCG VIAL IV SCH (06:02)
[2019-11-05] MEDS ORDERED: POTASSIUM 25 MEQ EFFERV TAB PO ONE (09:00)
[2019-11-05] MEDS: TIOTROPIUM 5 SPRAYS/INHALER IH SCH (09:00)
[2019-11-05] MEDS: Levofloxacin500mg IV 500 MG/100 ML BAG IV SCH (09:14)
[2019-11-05] MEDS: ENOXAPARIN 40 MG/0.4 ML SQ SCH (09:15)
[2019-11-05 10:16] VITALS: O2SAT 92
--- NOTE | 2019-11-05 12:23 | P.DS ---
Admission Date: 10/31/19 Discharge Date: 11/05/19 Primary Care Provider: Dr. Scott, transitioning to Dr. Parmar Disposition: ROUTINE DISCHARGE Discharge Condition: FAIR Reason for Admission: Small-bowel obstruction Consultations: Surgeon Dr. Rosado Procedures: None Brief History of Present Illness: From H and P Patient is a 69-year-old female who came into the hospital with abdominal pain. She was having some nausea and she had 1 episode of vomiting at home. She has had a history of multiple abdominal surgeries. He said he started having abdominal issues after she had a ruptured appendix while she was visiting [facility]. She said the surgery when really bad she developed an abdominal infection. She was left with adhesions and scar tissue because of the surgery. Over the last 5-10 years she has done relatively well. She has not needed a hospital admission for obstruction in that time period. However, over the last 24 hours she has been having some abdominal pain /discomfort and she also developed some nausea. She had the vomiting and came to the hospital because she felt like she was developing an obstruction. In the emergency room, CT scan revealed patient had a complete small bowel obstruction with transition point around the ileum where the bowel abuts the anterior abdominal wall approximate level of the umbilicus. Patient was admitted to the hospital. We placed an NG tube. General surgery consultation was also obtained. Continue with IV hydration and IV antibiotics. Hospital Course: Patient is a 69-year-old female who was admitted to the hospital for small bowel obstruction. Conservative treatment with NG tube placement and decompression was initiated. Patient did well with treatment. Surgical consultation with Dr. Rosado was obtained. Serial x-rays were obtained which showed gradual improvement and resolution of the small bowel obstruction. Patient is able to pass gas and tolerate clear liquid diet. NG tube was then discontinued and patient was started on a GI soft diet. Patient did well. She was ambulating well without any difficulty. Abdominal pain resolved. The patient was also found to have UTI with urine culture growing Proteus. Patient was continued on IV antibiotics throughout the hospital course. Patient will finish off course for total of 10 days for the abdominal issues. Patient was then discharged home in a stable condition. Assessment and plan Abdominal pain, nausea and vomiting secondary to partial small bowel obstruction Acute renal insufficiency likely from dehydration Acute cystitis without hematuria secondary to Proteus COPD chronic bronchitis Hypothyroidism Vital Signs/Physical Exam: Temp Pulse Resp BP Pulse Ox 97.6 F 66 17 140/73 91 11/05/19 08:00 11/05/19 08:00 11/05/19 08:00 11/05/19 08:00 11/05/19 08:00 General: Alert, In no apparent distress, Oriented x3, Other (Elderly female) HEENT: Atraumatic, PERRLA, EOMI Neck: Supple, JVD not distended Respiratory: Clear to auscultation bilaterally, Normal air movement Cardiovascular: No edema, Normal pulses, Regular rate/rhythm, Normal S1 S2 Gastrointestinal: Normal bowel sounds, Soft and benign, Non-distended, No tenderness Musculoskeletal: No clubbing, No tenderness Integumentary: No rashes, No erythema Neurological: Normal speech, Normal strength at 5/5 x4 extr, Normal tone, Cranial nerves 3-12 intact, Normal affect Laboratory Data at Discharge: WBC 5.7 K/uL (4.3-10.9) 11/04/19 05:18 Hgb 13.3 g/dL (12.0-15.0) 11/04/19 05:18 Hct 40.2 % (36.0-45.0) 11/04/19 05:18 Plt Count 211 K/uL (152-406) 11/04/19 05:18 PT 10.7 SECONDS (9.5-12.5) 11/01/19 03:56 INR 0.90 11/01/19 03:56 APTT 29.5 SECONDS (24.3-36.9) 11/01/19 03:56 Sodium 140 mmol/L (136-145) 11/05/19 04:38 Potassium 3.5 mmol/L (3.5-5.1) 11/05/19 04:38 BUN 4 mg/dL (7-18) L 11/05/19 04:38 Creatinine 0.77 mg/dL (0.55-1.3) 11/05/19 04:38 Glucose 144 mg/dL (74-106) H 11/05/19 04:38 Phosphorus 2.8 mg/dL (2.5-4.9) 11/01/19 03:56 Magnesium 1.9 mg/dL (1.8-2.4) 11/04/19 05:18 Total Bilirubin 0.3 mg/dL (0.2-1.0) 11/01/19 03:56 AST 13 U/L (15-37) L 11/01/19 03:56 ALT 18 U/L (12-78) 11/01/19 03:56 Alkaline Phosphatase 67 U/L (45-117) 11/01/19 03:56 Lipase 93 U/L (73-393) 11/01/19 03:56 Home Medications: Aspirin 1 tab PO BEDTIME 11/01/19 Calcium Carbonate [Calcium] 1 tab PO DAILY 11/01/19 Docusate Sodium [Dulcolax Stool Softener] 1 tab PO BID 11/01/19 Fluticasone [Flovent Hfa 110*] 2 inh IH BID 11/01/19 Levothyroxine Sodium 1 tab PO [id number] 11/01/19 Liothyronine Sodium [Cytomel] 1 tab PO [id number] 11/01/19 Mometasone/Formoterol [Dulera 100 Mcg/5 Mcg Inhaler] 2 inh IH BEDTIME 11/01/19 Tiotropium [place] [Spiriva] 2.5 mcg IH DAILY 11/01/19 Cefuroxime Axetil [Cefuroxime] 500 mg PO BID #10 tab 11/05/19 metroNIDAZOLE [Flagyl] 500 mg PO Q8H #15 tablet 11/05/19 New Medications: Cefuroxime Axetil [Cefuroxime] 500 mg PO BID #10 tab metroNIDAZOLE [Flagyl] 500 mg PO Q8H #15 tablet Patient Discharge Instructions: f/up w PCP in 2-3 days. f/up w surgeon Dr. Rosado in 2 weeks. Return to ER for worsening condition Diet: [place] Activity: Ad suzanna Followup: John Rosado MD [ACTIVE - CAN ADMIT] - Time spent managing pt's care (in minutes): 35
[2019-11-05 14:53] VITALS: BP 128/61; TEMP 97.8
== END 2019-11-05 14:12 | disposition home or self-care (01) | DRG 389 ==
LOC: ER 18:03 → ERHOLD 23:41 → 2ND 23:56
PROVIDERS: ADMIT Hospitalist; ATTEND Family Medicine
DX: K56.609 Unspecified intestinal obstruction, unspecified as to partial versus complete obstruction (principal); N17.9 Acute kidney failure, unspecified; N39.0 Urinary tract infection, site not specified; B96.4 Proteus (mirabilis) (morganii) as the cause of diseases classified elsewhere; J44.9 Chronic obstructive pulmonary disease, unspecified; E03.9 Hypothyroidism, unspecified; Z90.49 Acquired absence of other specified parts of digestive tract
CPT/HCPCS: 36415; 71045; 74018; 74177; 74250; 80048; 80053; 80076; 81003; 81015; 83690; 83735; 84100; 85025; 85610; 85730; 87077; 87086; 87088; 87186; 93005; 96365; 96367; 96375; 99285; J0744; J1650; J2405; J7030; J7606; J7799; Q9967

== ENCOUNTER 2020-02-13 18:50 | Inpatient (IN) | payer OTHER, BC ==
[2020-02-13 19:59] LABS: Urine Blood TRACE (NEG); Urine Glucose NEGATIVE (NEG); Urine Protein 1+ (NEG); Urine Specific Gravity >1.030 (1.005-1.030); Urine pH 5.5 (5.0-7.0)
[2020-02-13] MEDS ORDERED: MORPHINE 2 MG/ML SYR ONE ×2 (20:01→21:35)
[2020-02-13] MEDS ORDERED: ONDANSETRON 4 MG/2 ML VIAL ONE (20:02)
[2020-02-13] MEDS ORDERED: FAMOTIDINE 20 MG/2 ML VIAL IV ONE (20:02)
[2020-02-13] MEDS ORDERED: NA CHLORIDE 0.9% 2,000 ML ONE (20:02)
[2020-02-13 20:22] LABS: Absolute Lymphocytes (CBC) 0.6 K/uL (0.7-4.9); Basophils % 0.6 % (0-1.3); Hematocrit 46.1 % (36.0-45.0); Lymphocytes % 4.1 % (15.3-44.8); MPV 9.2 fL (7.6-11.3); RBC Red Blood Cell Count 5.07 M/uL (3.86-4.86)
[2020-02-13 20:26] LABS: ALT/SGPT 39 U/L (12-78); AST/SGOT 24 U/L (15-37); Albumin 3.8 g/dL (3.4-5.0); Alkaline Phosphatase 70 U/L (45-117); BUN Blood Urea Nitrogen 21 mg/dL (7-18); Bicarbonate 27 mmol/L (21-32); Bilirubin Direct < 0.1 mg/dL (0-0.2); Bilirubin Total 0.3 mg/dL (0.2-1.0); Glucose Level 123 mg/dL (74-106); Lipase 84 U/L (73-393); Potassium 3.7 mmol/L (3.5-5.1); Protein, Total 8.4 g/dL (6.4-8.2); Sodium Level 142 mmol/L (136-145)
[2020-02-13 20:27] LABS: Urine Bacteria <20 /HPF (<20); Urine RBC <5 /HPF (NONE SEEN)
[2020-02-13 20:28] LABS: Calcium Oxalate Crystals- Ur MANY (NONE SEEN); Urine Culture Reflex Order NOT NEEDED; Urine Mucus 1+ /HPF (NONE SEEN)
--- NOTE | 2020-02-13 20:29 | RAD REPORT ---
EXAM DESCRIPTION: CT - Abdomen Pelvis W Contrast - 02/13/2020 8:17 pm CLINICAL HISTORY: ABD PAIN COMPARISON: Abdomen Pelvis W Contrast dated 10/31/2019 TECHNIQUE: Biphasic, helical CT imaging of the abdomen and pelvis was performed following 100 ml non -ionic IV contrast. No oral contrast administered. All CT scans are performed using dose optimization technique as appropriate and may include automated exposure control or mA/KV adjustment according to patient size. FINDINGS: No suspicious findings in the lung bases. Multiple small hepatic cysts are present similar to the prior study. No new or progressive liver pare nchymal lesion. Spleen and pancreas show no suspicious findings. Gallstones are present with no activ e gallbladder process. No biliary tree dilatation. Symmetric renal function is seen with no hydronephrosis or suspicious renal mass. No pyelonephritis o r acute parenchymal process. Renal cysts are present. No adrenal abnormalities. Urinary bladder is mo stly contracted limiting assessment. Atrophic uterus present. No ovarian suspicious finding. Fluid filled, nondilated stomach. No gastric outlet obstruction, wall thickening or mass. Duodenum is unremarkable. There is progressive dilatation of the small bowel. Abrupt transition is present in th e anterior mid abdomen level of the umbilicus. Transition is at the abdominal wall. Fecalized small b owel content is present. More distally the small bowel is decompressed. Air and stool are present in the right-side of the colon. Left-side of the colon is decompressed. No free air, free fluid or inflammatory stranding. No hernia, mass or bulky lymphadenopathy. No suspicious bony findings. IMPRESSION: Small bowel obstruction pattern with an abrupt transition in the anterior mid abdomen we re small bowel abuts the abdominal wall near the umbilicus. This small bowel obstruction pattern and transition point are similar to the October 2019 findings.
--- OUTSIDE RECORDS SUMMARY | 2020-02-13 21:15 | XMS REPORT | Summary of Care ---
:1950 Author Organization [facility] Address [address] [place] [address] Care Team Providers Name Role Phone Pcp, Patient Does Not Have A Primary Care Provider +[id number] 0-0000 Reason for Visit Reason Comments Lab Results Encounter Details Date Type Department Care Team Description 12/03/2019 Telephone [facility] Endocrinology- Pablito Smith MD Lab Results [address] Professional Office [place], [place] [id number] [place] [address] [address] [place] [address] Allergies Active Allergy Reactions Severity Noted Date Comments Penicillin Diarrhea 08/27/2018 documented as of this encounter (statuses as of 12/03/2019) Medications Medication Sig Dispensed Refills Start Date End Date Status Mometasone-Formoterol Inhale. 0 Active (DULERA) 200-5 mcg/actuation inhaler tiotropium (SPIRIVA Inhale 18 mcg 0 Active WITH HANDIHALER) 18 mcg daily. inhalation montelukast (SINGULAIR) Take 10 mg by 0 Active 10 mg tablet mouth. ALPRAZolam (XANAX) 0.25 Take 0.25 mg by 0 Active mg tablet mouth 3 (three) times daily. cholecalciferol, Take by mouth. 0 Active vitamin D3, (VITAMIN D3 ORAL) alendronate sodium Take by mouth. 0 Active (ALENDRONATE ORAL) FLUCONAZOLE, BULK, MISC 0 Active venlafaxine XR 37.5 mg Take 1 capsule 30 capsule 11 08/27/2018 Active 24 hr capsule by mouth daily with breakfast. alendronate 5 mg Take 1 tablet by 90 tablet 3 11/23/2018 Active tabletIndications: mouth daily. Allergic rhinitis, unspecified seasonality, unspecified trigger fluticasone 50 Use 1 [place] in 16 g 3 11/23/2018 Active mcg/actuation nasal each nostril sprayIndications: daily. Allergic rhinitis, unspecified seasonality, unspecified trigger aspirin 81 mg EC tablet Take 81 mg by 0 Active mouth. mometasone/formoterol Inhale. 0 Active (DULERA INHALE) levothyroxine 112 mcg Take 1 tablet by 90 tablet 3 11/12/2019 Active tabletIndications: mouth every Postprocedural morning. hypothyroidism liothyronine 5 mcg TAKE 1 TABLET BY 90 tablet 3 11/12/2019 Active tabletIndications: MOUTH ONCE DAILY Postprocedural IN THE MORNING hypothyroidism documented as of this encounter (statuses as of 12/03/2019) Active Problems No known active problemsdocumented as of this encounter (statuses as of 12/03/2019) Social History Tobacco Use Types Packs/Day Years Used Date Former Smoker Smokeless Tobacco: Never Used Alcohol Use Drinks/Week oz/Week Comments Yes Sex Assigned at Date Recorded Not on file Job Start Date Occupation Industry Not on file Not on file Not on file Travel History Travel Start Travel End No recent travel history available. documented as of this encounter Last Filed Vital Signs Not on filedocumented in this encounter Plan of Treatment Date Type Specialty Care Team Description 11/17/2020 Office Visit Endocrinology Diabetes & Ari Smith MD Metabolism [address] [place] [address] [phone] Health Maintenance Due Date Last Done Comments HEPATITIS C (HCV) SCREEN 1950 DTaP,Tdap,and Td Vaccines (1 - Tdap) 1959 Breast Cancer Screening (MAMMOGRAM) 1988 COLONOSCOPY 1998 Zoster Recombinant Vaccine (SHINGRIX) (1 of 2) 1998 LUNG CANCER SCREEN: Recommended for age 55-80 with 30 + 10/18/19 04 pack year history Medicare Wellness Visit 2013 Osteoporosis Screening 2013 PNEUMOCOCCAL VACCINES 65+ (1 of 2 - PCV13) 2013 INFLUENZA VACCINE (#1) 2019 documented as of this encounter Implants Implanted Type Area Hand Coper Device Shelf Model / Serial Identifier Expiration / Lot Date Lens, Quintin #[id number] - [id number] LENS Right: Quintin 03/17/2024 [id number] / Implanted: Qty: 1 on 05/22/2019 by Car Hernandez MD at [facility] [id number] / 0000 Lens, Quintin #[id number] - [id number] LENS Left: Eye Quintin 12/17/2023 [id number] / Implanted: Qty: 1 on 06/19/2019 by Car Hernandez MD at [facility] [id number] / [id number] documented as of this encounter Results Not on filedocumented in this encounter Insurance Payer Benefit Plan / Subscriber ID Effective Phone Address T ype Group Dates MEDICARE MEDICARE PART A xxxxxxxxxxx 2013-Pres [phone] [address] [place] X Medicare & B ent [phone] [id number] [place] [phone] BCBS OF BCBS [id number] 2013-Pres [phone] [facility] TRADITIONAL ent [phone] [place] [address] documented as of this encounter
--- OUTSIDE RECORDS SUMMARY | 2020-02-13 21:15 | XMS REPORT | Clinical Summary ---
:1950 Author Organization [facility] Address [address] [place] [address] Care Team Providers Name Role Phone Paulette Khan MD Primary Care Provider Allergies Active Allergy Reactions Severity Noted Date Comments Penicillins 02/28/2017 Reaction: diarr hea Medications Medication Sig Dispensed Refills Start Date End Date Status alendronate (FOSAMAX) 5 0 02/15/2017 Active MG tablet ammonium lactate 0 02/06/2017 Ac tive (LAC-HYDRIN) 12 % lotion levothyroxine 0 02/06/2017 Activ e (SYNTHROID, LEVOXYL) 150 mcg tablet liothyronine (CYTOMEL) 5 0 02/15/2017 Active MCG tablet tiotropium bromide Inhale. 0 A ctive (SPIRIVA WITH HANDIHALER INHL) mometasone/formoterol Inhale. 0 Active (DULERA INHL) fluticasone (FLONASE) 50 2 sprays by Each 0 Active mcg/actuation nasal Nare route spray daily. aspirin (ECOTRIN) 81 MG Take 81 mg by 0 Active enteric coated tablet mouth daily. levothyroxine 0 01/23/2019 Activ e (SYNTHROID, LEVOXYL) 112 mcg tablet Active Problems No known active problems Family History Medical History Relation Name Comments Kidney disease Brother Kidney disease Father Cancer Mother Relation Name Status Comments Brother Father Mother Social History Tobacco Use Types Packs/Day Years Used Date Former Smoker Cigarettes 1 08/24/1969 - 0 09/24/2008 Smokeless Tobacco: Never Used Alcohol Use Drinks/Week oz/Week Comments Yes 10 Cans of beer 10.0 Sex Assigned at Date Recorded Not on file Job Start Date Occupation Industry Not on file Not on file Not on file Travel History Travel Start Travel End No recent travel history available. Last Filed Vital Signs Not on file Plan of Treatment Health Maintenance Due Date Last Done Comments BREAST CANCER SCREENING 1998 COLONOSCOPY SCREENING 1998 SHINGLES VACCINES (#1) 1998 65+ PNEUMOCOCCAL VACCINE (1 of 2 - PCV13) 2013 INFLUENZA VACCINE 04/18/2020 05/28/2018 Implants Implanted Type Area Silo Operator Device Shelf Model / Identifier Expiration Serial / Date Lot Implant Lindactmartín Gallego Voicegel 1cc - [id number] Surgical Bilateral [employer] 07/21/2020 [id number] / Implanted: Qty: 1 on 10/08/2018 by Pema Wilson MD at [facility] Implants; : Throat / Expanders; [id number] Extenders; Surgical Wires Results Not on fileafter 02/12/2019 Insurance Payer Benefit Plan / Subscriber ID Effective Dates Phone Addre ss Type Group BCBS BCBS CHOICE xxxxxxxxxxxx 2013-Present PPO PPO/FEDERAL EMPL PPO MEDICARE MEDICARE PART A xxxxxxxxxxx 2013-Present [facility] [place] [facility] [place] B Advance Directives For more information, please contact: [phone] Type Date Recorded 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
--- OUTSIDE RECORDS SUMMARY | 2020-02-13 21:15 | XMS REPORT ---
:1950 Author Organization [facility] t Address [address] [place] [address] Care Team Providers Name Role Phone Bill RENEE, Paulette Fink Primary Care Physician Luis RENEE Attending Clinician Problems This patient has no known problems. Allergies, Adverse Reactions, Alerts Allergy Allergy Status Severity Reaction(s) Onset Inactive Treating Comm ents Source Name Type Date Date Clinician Penicill Propensi Active Reaction: Ryan ston ins ty to 6-13 diarrhea Methodi adverse 00:00: st reaction 00 s to drug Family History Family Member Diagnosis Comments Start Date Stop Date Source Natural brother Kidney disease [place] [facility] Natural father Kidney disease [place] [facility] Natural [facility] Social History Social Habit Start Date Stop Date Quantity Comments Source Sex Assigned At [place] [facility] Cigarettes smoked 2019-01-31 2019-01-31 [place] [facility] current (pack per 00:00:00 00:00:00 day) - Reported Alcohol intake 2019-01-31 2019-01-31 Current drinker [place] [facility] 00:00:00 00:00:00 of alcohol (finding) History of tobacco 1969-08-24 2008-09-24 Current smoker [place] [facility] use 00:00:00 00:00:00 Smoking Status Start Date Stop Date Source Former smoker 2019-01-31 00:00:00 2019-01-31 00:00:00 Jonnathan Matthews Medications Ordered Filled Start Stop Current Ordering Indication Dosage Frequency Signature Comments Components Source Medication Medication Date Date Medication? Clinician (SIG) Name Name tiotropium Yes Inhale. Charleen ton bromide 5-16 Methodi (SPIRIVA 10:42: st WITH 57 HANDIHALER INHL) mometasone/ Yes Inhale. Ryan matthew formoterol 5-16 Methodi (DULERA 10:42: st INHL) 57 fluticasone Yes 2{spray QD 2 sprays Jonnathan (FLONASE) 5-16 } by Each Methodi 50 10:42: Nare route st mcg/actuati 57 daily. on nasal spray aspirin Yes 81mg QD Take 81 mg Charleen adamson (ECOTRIN) 5-16 by mouth Method i 81 MG 10:42: daily. st enteric 57 coated tablet levothyroxi Yes Hansa dent ne 5-08 Methodi (SYNTHROID, 00:00: st LEVOXYL) 00 112 mcg tablet alendronate Yes [place] dent (FOSAMAX) 5 5-31 Methodi MG tablet 00:00: st 00 liothyronin Yes Hansa dent e (CYTOMEL) 5-31 Methodi 5 MCG 00:00: st tablet 00 ammonium Yes Jonnathan lactate 5-22 Methodi (LAC-HYDRIN 00:00: st ) 12 % 00 lotion levothyroxi Yes Hansa dent ne 5-22 Methodi (SYNTHROID, 00:00: st LEVOXYL) 00 150 mcg tablet Procedures This patient has no known procedures. Plan of Care Planned Activity Planned Date Details Comments Source Future Scheduled 2020-04-18 INFLUENZA VACCINE [facility]a dent [facility] Test 00:00:00 [code = INFLUENZA VACCINE] Future Scheduled 2013 65+ PNEUMOCOCCAL Jonnathan [facility] Test 00:00:00 VACCINE (1 of 2 - PCV13) [code = 65+ PNEUMOCOCCAL VACCINE (1 of 2 - PCV13)] Future Scheduled 1998 BREAST CANCER Jonnathan Benedict thodi Test 00:00:00 SCREENING [code = BREAST CANCER SCREENING] Future Scheduled 1998 COLONOSCOPY SCREENING Soto Matthews Test 00:00:00 [code = COLONOSCOPY SCREENING] Future Scheduled 1998 SHINGLES VACCINES (#1) H kevin [facility] Test 00:00:00 [code = SHINGLES VACCINES (#1)] Encounters Start End Encounter Admission Attending Care Care Encounter Source Date/Time Date/Time Type Type Clinicians Facility Department ID 2019-12-03 2019-12-03 Telephone Luis [facility] [id number] 00:00:00 00:00:00 Pablito Gates [id number] [place] [id number] Professio [phone] [facility] 220 Building 2019-11-12 2019-11-12 Office Luis [facility] [id number] 09:00:28 09:41:00 Visit Pablito Gates [id number] [place] [id number] Professio [phone] [facility] 220 [facility] Results This patient has no known results.
[2020-02-13 22:03] LABS: Platelet Estimate ADEQ; Urine White Blood Cell Casts OK
[2020-02-13 22:04] LABS: Blood Morphology Comment NOT SEEN (NOT SEEN)
[2020-02-13] MEDS ORDERED: METRONIDAZOLE 500mg IVPB 500 MG/100 ML BAG IV ONE (22:51)
[2020-02-13] MEDS ORDERED: CIPROFLOXACIN 400mg IV 400 MG/200 ML BAG IV ONE (22:51)
[2020-02-13] MEDS: ONDANSETRON 4 MG/2 ML VIAL IV PRN (23:37)
[2020-02-13 23:58] VITALS: BMI 26.2
[2020-02-14] MEDS: MORPHINE 4 MG/ML SYR IV PRN ×2 (06:33→12:24)
[2020-02-14] MEDS: D5 0.45 NS 1,000 ML IV SCH ×2 (09:00→22:20)
--- NOTE | 2020-02-14 09:05 | RAD REPORT ---
EXAM DESCRIPTION: RAD - Abdomen 1 View (KUB) - 02/14/2020 8:59 am CLINICAL HISTORY: NG tube placement COMPARISON: Abdomen 1 View (KUB) dated 11/02/2019 FINDINGS: Nasogastric tube has been placed. Tip is in the proximal stomach with the side hole of the tubing near the GE junction. Prominent small bowel pattern again noted. Abdomen is not fully assessed on this tube placement film . IMPRESSION: NG tube is in place as detailed.
--- NOTE | 2020-02-14 11:51 | P.HP ---
Certification for Inpatient Patient admitted to: Inpatient With expected LOS: >2 Midnights Practitioner: I am a practitioner with admitting privileges, knowledge of patient current condition, hospital course, and medical plan of care. Services: Services provided to patient in accordance with Admission requirements found in Title 42 Section 412.3 of the Code of Federal Regulations Patient History Date of Service: 02/14/20 Reason for admission: ABDOMEN PAIN, NAUSEA, VOMITING History of Present Illness: MS. LAU HAS HAS RECURRENT BOWEL OBSTRUCTION SINCE AGE 13. HER LAST SURGERY WAS IN 1994 FOR LATHA. FIRST ONE WAS FOR APPENDICITIS. SHE COMES WITH ABDOMEN PAIN, NAUSEA, VOMITING AND DISTENSION. I CALLED DR. MALDONADO SHE STILL IS QUITE DISTENDED AND HE SAID HE WILL BE THERE A LUNCH TIME. Allergies Penicillins Allergy (Verified 02/13/20 23:40) Hives/Rash Home Medications: Aspirin 1 tab PO BEDTIME 11/01/19 Calcium Carbonate [Calcium] 1 tab PO DAILY 11/01/19 Docusate Sodium [Dulcolax Stool Softener] 1 tab PO BID 11/01/19 Fluticasone [Flovent Hfa 110*] 2 inh IH BID 11/01/19 Levothyroxine Sodium 1 tab PO [id number] 11/01/19 Liothyronine Sodium [Cytomel] 1 tab PO [id number] 11/01/19 Mometasone/Formoterol [Dulera 100 Mcg/5 Mcg Inhaler] 2 inh IH BEDTIME 11/01/19 Tiotropium [place] [Spiriva] 2.5 mcg IH DAILY 11/01/19 Alendronate Sodium [Fosamax] 1 tab PO SEECOM 02/14/20 Vit D3 42050 1 cap PO SEECOM 02/14/20 - Past Medical/Surgical History Has patient received pneumonia vaccine in the past: Yes Diabetic: No -: COPD -: asthma -: bowel obstructions -: hypothyroid -: osteoparosis -: appendectomy -: ovary removal -: abdominal surgery due adhesions x3 - Family History Brother -: Kidney disease - Social History Smoking Status: Former smoker Alcohol use: Yes CD- Drugs: No Caffeine use: Yes Place of Residence: Home Review of Systems 10-point ROS is otherwise unremarkable General: Weakness, As per HPI Gastrointestinal: Nausea, Vomiting, Abdominal Pain Physical Examination - Vital Signs Temperature: 97.8 F Blood Pressure: 101/56 Pulse: 76 Respirations: 16 Pulse Ox (%): 91 - Physical Exam General: Alert, Moderate distress HEENT: Atraumatic, PERRLA, Mucous membr. moist/pink, EOMI, Sclerae nonicteric Neck: Supple, 2+ carotid pulse no bruit, No LAD, Without JVD or thyroid abnormality Respiratory: Clear to auscultation bilaterally, Normal air movement Cardiovascular: Regular rate/rhythm, Normal S1 S2 Gastrointestinal: Other (SCARRIG DIFFUSE), Hyperactive, Distended, Tenderness (AT PU LEVEL.) Musculoskeletal: No tenderness Integumentary: No rashes Neurological: Normal gait, Normal speech, Normal strength at 5/5 x4 extr, Normal tone, Normal affect Lymphatics: No axilla or inguinal lymphadenopathy - Studies Laboratory Data (last 24 hrs) 02/13/20 19:55: WBC 15.7 H, Hgb 15.4 H, Hct 46.1 H, Plt Count 234 02/13/20 19:55: Sodium 142, Potassium 3.7, BUN 21 H, Creatinine 1.01, Glucose 123 H, Total Bilirubin 0.3, AST 24, ALT 39, Alkaline Phosphatase 70, Lipase 84 Assessment and Plan - Problems (Diagnosis) (1) Small bowel obstruction Current Visit: No Status: Acute Plan: NGT WITH SUCTION IV FLUIDS. SUPPORTIVE CARE. CONSULT DR. MALDONADO. ABX WBC IS HIGH. - Advance Directives Does patient have a Living Will: No Does patient have a Durable POA for Healthcare: Yes
--- NOTE | 2020-02-14 19:34 | CON ---
Date of Consultation: 02/14/2020 Reason For Service: Small bowel obstruction. History Of Present Illness: This is the case of a female known by us due to history of recurrent bow el obstruction. She was here probably a little bit more than a month ago. She has on and off bowel obstruction, extensive surgical history, please see my previous consult for details. She once again claimed that she ate some angie with lot of fiber on it and she to call this a little piece of fibers and ate them too. She also had raw onions before that and mixed that with an oatmeal. A lot of fib er at one time especially the angie with all the fibers on it. So after that, she felt this. She st ated that she has been watching her diet. This time, just a little more distended than before. Past Medical History: Multiple bowel obstructions. Past Surgical History: Surgeries includes a history of multiple surgeries like appendectomies, in th at case she claims that was ruptured. Many abdominal surgeries due to adhesions, oophorectomy. Social History: She does not smoke. She does not drink alcohol. Family History: Kidney disease. Review of Systems: Ten points otherwise unremarkable. Patient does not recall the last colonoscopy, although she was ad vised to do so. Physical Examination: General: The patient is awake and alert. HEENT: Pupils are equal and reactive, anicteric. Neck: Supple. Chest: Clear. Abdomen: Softly distended. Generalized mild tenderness. No peritonitis. Rectal: Deferred. Extremities: Good capillary refill. Imaging Studies: CAT scan of abdomen and pelvis was reviewed, showing small bowel obstruction with a transition point probably in the anterior abdomen. Laboratory Data: Blood work was reviewed with a WBC count of 15.7, hemoglobin of 15.2. Assessment: 69-year-old patient with recurrent bowel obstruction. She knows that already. She april eves she knows what happened. As before, she preferred a conservative treatment. Like I mentioned t o her when she came here several weeks ago, we can go there up to certain level. She developed perit onitis. Then, she has to let me know because the bowel at may be compromised and she has to let me d o the surgery. She stated that at one point, she was up to 2 weeks in the hospital just waiting with out signing consent for surgery. I know though maybe the case in that moment, might not be the case this time. So, she is going to ambulate around and she has an NG tube in place. She was fully expla ined once again the options of laparotomy, possible bowel resection, possible ostomy with benefits, a lternatives, and risks including, but not limited to infection, bleeding, damage to adjacent structur es, anesthesia complication, recurrence of the obstruction, and might even . She also understan ds this may not relieve any symptoms. She might need more than 1 surgical intervention. She underst ood and she wants to treat at least for the next 24 to 48 hours conservative treatment if possible. We will see the patient with you and give more recommendations as the case develops. JULIANNA/PRABHA Voice ID: [id number] Report ID: [id number]
[2020-02-14] MEDS ORDERED: FLUTICASONE 110 MCG/PUFF 12 GM INH IH SCH (21:00)
[2020-02-14] MEDS ORDERED: DULERA 100/5 (MOMETASONE/FORMOTEROL) INHALER IH SCH (21:00)
[2020-02-15] MEDS: ONDANSETRON 4 MG/2 ML VIAL IV PRN (04:10)
[2020-02-15] MEDS ORDERED: TIOTROPIUM 5 SPRAYS/INHALER IH SCH (09:00)
[2020-02-15] MEDS ORDERED: SODIUM CHLORIDE 0.9% 10ML INJ IV PRN (10:15)
--- NOTE | 2020-02-15 11:46 | P.PN ---
Subjective Date of Service: 02/15/20 Chief Complaint: ABDOMEN PAIN, NAUSEA, VOMITING Subjective: Improving SHE HAD TWO BM ALREADY. SHE STILL HAS SIGNIFICANT DARK LIQUID COMING FROM NGT. SHE FEELS A LOT BETTER. Review of Systems 10-point ROS is otherwise unremarkable Physical Examination - Vital Signs Temperature: 97.4 F Blood Pressure: 117/60 Pulse: 72 Respirations: 19 Pulse Ox (%): 93 - Physical Exam General: Mild distress HEENT: Atraumatic, PERRLA, EOMI Neck: Supple, JVD not distended Respiratory: Clear to auscultation bilaterally, Normal air movement Cardiovascular: Regular rate/rhythm, Normal S1 S2 Gastrointestinal: Normal bowel sounds, Other (ABDOMEN IS LOT SOFTER NOW.) Musculoskeletal: No tenderness Integumentary: No rashes Neurological: Normal speech, Normal tone, Normal affect Lymphatics: No axilla or inguinal lymphadenopathy - Studies Medications List Reviewed: Yes Assessment And Plan - Current Problems (Diagnosis) (1) Small bowel obstruction Current Visit: No Status: Acute Plan: NGT WITH SUCTION IV FLUIDS. SUPPORTIVE CARE. CONSULT DR. MALDONADO. ABX WBC IS HIGH. X RAY TODAY PROTONIX IV FOR COFFEE GROUNDS FROM NGT CHECK DAILY LAB. REPLACE ELECTROLYTES LOW PO4.
[2020-02-15] MEDS: D5 0.45 NS 1,000 ML IV SCH (12:03)
--- NOTE | 2020-02-15 12:12 | RAD REPORT ---
EXAM DESCRIPTION: RAD - Abdomen W Erect - 02/15/2020 10:56 am CLINICAL HISTORY: f/u Pain COMPARISON: Abdomen 1 View (KUB) dated 02/14/2020; Abdomen Pelvis W Contrast dated 02/13/2020 FINDINGS: The bowel gas pattern is non-obstructive. No evidence of free air or pneumatosis. No suspi cious calcifications. No significant bony findings. The enteric tube tip is in the stomach. IMPRESSION: No acute findings seen.
--- NOTE | 2020-02-15 13:01 | EKG ---
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
[2020-02-16] MEDS: D5 0.45 NS 1,000 ML IV SCH ×2 (00:45→15:06)
[2020-02-16 06:06] LABS: Absolute Lymphocytes (CBC) 1.1 K/uL (0.7-4.9); Basophils % 0.3 % (0-1.3); Hematocrit 36.4 % (36.0-45.0); Lymphocytes % 16.8 % (15.3-44.8); MPV 9.5 fL (7.6-11.3); RBC Red Blood Cell Count 4.04 M/uL (3.86-4.86)
[2020-02-16 06:24] LABS: BUN Blood Urea Nitrogen 8 mg/dL (7-18); Bicarbonate 29 mmol/L (21-32); Glucose Level 103 mg/dL (74-106); Magnesium 1.9 mg/dL (1.8-2.4); Phosphorus 1.1 mg/dL (2.5-4.9); Potassium 3.2 mmol/L (3.5-5.1); Sodium Level 142 mmol/L (136-145)
[2020-02-16] MEDS ORDERED: KCL 20 MEQ/100 mL IVPB 20 MEQ/100 ML BAG IV SCH (07:00)
[2020-02-16] MEDS: PANTOPRAZOLE 40 MG INJ IVP SCH (07:49)
[2020-02-16] MEDS ORDERED: POTASSIUM PHOS IN 0.9 % NACL 15 MMOL/250 ML BAG IV ONE ×3 (10:00→21:55)
--- NOTE | 2020-02-16 10:39 | P.PN ---
Subjective Date of Service: 02/16/20 Chief Complaint: HAD LARGE BM Subjective: Improving SHE HAD TWO BM ALREADY. SHE STILL HAS SIGNIFICANT DARK LIQUID COMING FROM NGT. SHE FEELS A LOT BETTER. SHE IS DOING GREAT. HAD LARGE BM. Review of Systems 10-point ROS is otherwise unremarkable Physical Examination - Vital Signs Temperature: 97.6 F Blood Pressure: 126/56 Pulse: 70 Respirations: 18 Pulse Ox (%): 91 - Physical Exam General: Alert, In no apparent distress, Other (NGT LIS) HEENT: Atraumatic, PERRLA, EOMI Neck: Supple, JVD not distended Respiratory: Clear to auscultation bilaterally, Normal air movement Cardiovascular: Regular rate/rhythm, Normal S1 S2 Gastrointestinal: Normal bowel sounds, No tenderness Musculoskeletal: No tenderness Integumentary: No rashes Neurological: Normal speech, Normal tone, Normal affect Lymphatics: No axilla or inguinal lymphadenopathy - Studies Microbiology Data (last 24 hrs): 02/13/20 19:35 Clean Catch Urine [place] Count - Final >100,000 CFU/ML. 02/13/20 19:35 Clean Catch Urine - Final Escherichia Coli Medications List Reviewed: Yes Assessment And Plan - Current Problems (Diagnosis) (1) Small bowel obstruction Current Visit: No Status: Acute Plan: NGT WITH SUCTION IV FLUIDS. SUPPORTIVE CARE. CONSULT DR. MALDONADO. ABX WBC IS HIGH. X RAY TODAY PROTONIX IV FOR COFFEE GROUNDS FROM NGT CHECK DAILY LAB. REPLACE ELECTROLYTES LOW PO4. START CLEAR LIQ DIET. X RAY SHOWS NO OBST NOW (2) Electrolyte abnormality Current Visit: Yes Status: Acute Plan: REPLACE K AND PHOS.
--- NOTE | 2020-02-16 19:27 | PN ---
Date of Progress Note: 02/16/2020 Diagnosis: Small bowel obstruction. Subjective: The patient is doing better. Having bowel movement. Passing flatus. No abdominal pain today, mildly distended. Objective: Chest: Clear. Abdomen: Soft and depressible. Extremities: Full range of motion. Imaging: X-rays show improvement. Plan: Discontinue NG tube. Advance diet. Ambulation. HM/MODL Voice ID: [id number] Report ID: [id number]
[2020-02-16 20:44] LABS: Phosphorus 1.2 mg/dL (2.5-4.9); Potassium 3.9 mmol/L (3.5-5.1)
[2020-02-16 22:05] VITALS: O2SAT 96
[2020-02-17] MEDS: D5 0.45 NS 1,000 ML IV SCH ×2 (04:10→15:44)
[2020-02-17 06:04] LABS: Absolute Lymphocytes (CBC) 1.1 K/uL (0.7-4.9); Basophils % 0.4 % (0-1.3); Hematocrit 36.6 % (36.0-45.0); Lymphocytes % 16.8 % (15.3-44.8); MPV 9.6 fL (7.6-11.3); RBC Red Blood Cell Count 4.08 M/uL (3.86-4.86)
[2020-02-17 06:20] LABS: BUN Blood Urea Nitrogen 3 mg/dL (7-18); Bicarbonate 28 mmol/L (21-32); Glucose Level 102 mg/dL (74-106); Phosphorus 2.3 mg/dL (2.5-4.9); Potassium 3.5 mmol/L (3.5-5.1); Sodium Level 142 mmol/L (136-145)
[2020-02-17] MEDS: POTASS/SODIUM PHOSPHATE 1 PKT POWD.PACK PO SCH ×3 (06:49→08:01)
[2020-02-17] MEDS: PANTOPRAZOLE 40 MG INJ IVP SCH (07:31)
[2020-02-17] MEDS ORDERED: POTASSIUM CL SA 10 MEQ TAB PO ONE (09:00)
--- NOTE | 2020-02-17 10:01 | P.PN ---
Subjective Date of Service: 02/15/20 Chief Complaint: HAD LARGE BM Subjective: Improving Review of Systems General: Fever (no) Physical Examination - Vital Signs Temperature: 97.6 F Blood Pressure: 129/59 Pulse: 65 Respirations: 18 Pulse Ox (%): 95 - Physical Exam General: Alert, Oriented x3, Cooperative HEENT: PERRLA, EOMI Neck: Supple Gastrointestinal: Soft and benign Musculoskeletal: No erythema, No tenderness, No warmth Integumentary: No erythema, No warmth, No cyanosis Neurological: Normal speech - Studies Microbiology Data (last 24 hrs): 02/13/20 19:35 Clean Catch Urine [place] Count - Final >100,000 CFU/ML. 02/13/20 19:35 Clean Catch Urine - Final Escherichia Coli Medications List Reviewed: Yes Assessment And Plan - Plan oob clamp NGT
--- NOTE | 2020-02-17 16:24 | ER ---
Nurse's Notes [facility] Name: Korina Flores Age: 69 yrs Sex: Female : 1950 Arrival Date: 02/13/2020 Time: 18:56 Bed 13 Private MD: Diagnosis: Small Bowel Obstruction Presentation: 02/12 19:03 Chief complaint: Patient states: Abd pain with N/V for 3 hours. Believes she has a ll1 blockage again. Coronavirus screen: Proceed with normal triage. Patient denies a cough. Patient denies shortness of breath or difficulty breathing. Patient denies measured and/or subjective temperature greater than 100.4F prior to today's visit. Patient denies travel on a cruise ship or to a country the [facility] currently lists as an affected area. Patient denies contact with known and/or suspected case of COVID-19. Ebola Screen: Patient denies travel to an Ebola-affected area in the 21 days before illness onset. Initial Sepsis Screen: Does the patient meet any 2 criteria? No. Patient's initial sepsis screen is negative. Does the patient have a suspected source of infection? Yes: Acute abdominal pain. Risk Assessment: Do you want to hurt yourself or someone else? Patient reports no desire to harm self or others. Onset of symptoms was February 13, 2020. 19:03 Method Of Arrival: Ambulatory ll1 19:03 Acuity: SARY 3 ll1 Historical: - Allergies: 19:06 PENICILLINS; ll1 - PMHx: 19:06 COPD; Hypothyroidism; Asthma; ll1 - PSHx: 19:06 Appendectomy; Abdominal Surgeries for the blockage x 3; ll1 - Immunization history:: Adult Immunizations up to date. - Social history:: Smoking status: Patient denies any tobacco usage or history of. Patient/guardian denies using alcohol, street drugs, tobacco products. Screenin:30 Abuse screen: Denies threats or abuse. Nutritional screening: No deficits noted. vc Tuberculosis screening: No symptoms or risk factors identified. Fall Risk None identified. Assessment: 19:30 General: Appears in no apparent distress. uncomfortable, ill, Behavior is calm, vc cooperative, appropriate for age. Pain: Complains of pain in umbilical area and epigastric area Pain does not radiate. Pain currently is 10 out of 10 on a pain scale. Quality of pain is described as sharp, shooting, squeezing, Alleviated by medications. Neuro: Level of Consciousness is awake, alert, obeys commands, Oriented to person, place, time, situation, Appropriate for age. Cardiovascular: Capillary refill < 3 seconds Patient's skin is warm and dry. Respiratory: Airway is patent Respiratory effort is even, shallow, Respiratory pattern is regular, symmetrical. GI: Abdomen is flat, Abd is soft Abdomen is tender to palpation Reports lower abdominal pain, upper abdominal pain, constipation. : No signs and/or symptoms were reported regarding the genitourinary system. Derm: Skin is intact, is healthy with good turgor, Skin temperature is warm. 20:30 Reassessment: Patient appears in no apparent distress at this time. Patient and/or vc family updated on plan of care and expected duration. Pain level reassessed. Patient is alert, oriented x 3, equal unlabored respirations, skin warm/dry/pink. 21:30 Reassessment: Patient appears in no apparent distress at this time. Patient and/or vc family updated on plan of care and expected duration. Pain level reassessed. Patient is alert, oriented x 3, equal unlabored respirations, skin warm/dry/pink. 22:20 Reassessment: Patients oxygen dropped to 75%, patient stated that happens at night when vc she sleeps, she starts breathing shallow and her O2 drops, patient uses oxygen at home. Patient placed on 2L nasal canula O2 saturation 97%. 22:41 Reassessment: Patient appears in no apparent distress at this time. Patient and/or vc family updated on plan of care and expected duration. Pain level reassessed. Patient states symptoms have improved. Vital Signs: 19:03 BP 130 / 82; Pulse 88; Resp 17; Temp 97.0; Pulse Ox 97% on R/A; Pain 10/10; ll1 21:00 BP 132 / 96; Pulse 92; Resp 18; Pulse Ox 97% on R/A; vc 22:00 BP 121 / 69; Pulse 81; Resp 16; Pulse Ox 97% on 2 lpm NC; vc ED Course: 02/11 21:30 NGT: inserted 14 Fr. via right nare. verified placement of air over stomach, verified vc return of gastric contents, to intermittent suction. Returned gastric contents. Amount of gastric contents removed by suction 200ml. Patient tolerated well. 02/12 18:56 Patient arrived in ED. bp1 19:03 Johanna Gomez, JANINE is Primary Nurse. vc 19:04 Sean Barcenas MD is Attending Physician. mh7 19:05 Triage completed. ll1 19:06 Arm band placed on Patient placed in an exam room, on a stretcher. ll1 19:30 Patient has correct armband on for positive identification. Bed in low position. Call vc light in reach. Side rails up X2. Pulse ox on. NIBP on. 19:36 EKG done, by ED staff, reviewed by Sean Barcenas MD. ds4 19:49 Radiology exam delayed due to IV insertion attempt and/or patient not having vm2 appropriate IV at this time. 19:55 Inserted saline lock: 22 gauge in left forearm, using aseptic technique. Blood ds4 collected. 20:04 Urine Culture Sent. ds4 20:04 Urine Microscopic Only Sent. ds4 20:04 CBC with Automated Diff Sent. ds4 20:04 Basic Metabolic Panel Sent. ds4 20:04 Basic Metabolic Panel Sent. ds4 20:04 CBC with Diff Sent. ds4 20:04 Hepatic Function Sent. ds4 20:04 Lipase Sent. ds4 20:18 CT Abd/Pelvis - IV Contrast Only In Process Unspecified. EDMS 20:51 Drew Parmar MD is Hospitalizing Provider. mh7 21:33 Urine Culture Sent. ds4 23:00 No provider procedures requiring assistance completed. Patient admitted, IV remains in vc place. Administered Medications: 19:40 Drug: Zofran (Ondansetron) 4 mg Route: IVP; Site: left forearm; vc 19:40 Drug: NS 0.9% 1000 ml Route: IV; Rate: 125 ml/hr; Site: left forearm; vc 19:40 Drug: Pepcid 20 mg Route: IVP; Site: left forearm; vc 21:40 Drug: morphine 2 mg Route: IVP; Site: left forearm; vc 21:40 Drug: NS 0.9% 1000 ml Route: IV; Rate: 1000 ml; Site: left forearm; vc 22:00 Drug: morphine 2 mg Route: IVP; Site: left forearm; vc 22:30 Follow up: Response: No adverse reaction; Pain is decreased vc 22:38 Drug: Cipro 400 mg Volume: 200 ml; Route: IVPB; Infused Over: 60 mins; Site: left vc forearm; 22:48 Follow up: IV Status: Infusion continued upon admission vc 22:38 Drug: Flagyl 500 mg Volume: 100 ml; Route: IVPB; Rate: 200 ml/hr; Infused Over: 30 vc mins; Site: right forearm; 22:48 Follow up: IV Status: Infusion continued upon admission Outcome: 20:53 Decision to Hospitalize by Provider. silvano 23:00 Admitted to Med/surg accompanied by tech, via stretcher, room 221, Report called to vc Eufemia RN 23:00 Condition: good 23:00 Instructed on the need for admit, medication usage, Demonstrated understanding of instructions. 23:03 Patient left the ED. Signatures: Dispatcher [employer] EDMS Neptali Thomas Victoria vm2 Calcote, Vanessa, RN RN vc Lewis, Lynsay, RN RN ll1 Mandi Laughlin Maurice, MD MD 7
--- NOTE | 2020-02-17 16:24 | EDPHYS ---
Physician Documentation [facility] Name: Korina Flores Age: 69 yrs Sex: Female : 1950 Arrival Date: 02/13/2020 Time: 18:56 Bed 13 Private MD: ED Physician Sean Barcenas HPI: 02/12 20:05 This 69 yrs old Female presents to ER via Ambulatory with complaints of Bowel mh7 Blockage. 20:05 The patient presents with abdominal pain that is diffuse. Onset: The symptoms/episode mh7 began/occurred today. The symptoms do not radiate. Associated signs and symptoms: Pertinent positives: nausea and vomiting, Pertinent negatives: anorexia, blood in stools, chest pain, constipation, diarrhea, dysuria, fever, headache, hematuria, palpitations, shortness of breath, vaginal discharge, vomiting blood. The symptoms are described as intermittent, vague, waxing/waning. Modifying factors: The symptoms are alleviated by nothing, the symptoms are aggravated by nothing. Severity of pain: At its worst the pain was moderate just prior to arrival, in the emergency department the pain is unchanged. The patient has experienced similar episodes in the past, multiple times. Historical: - Allergies: 19:06 PENICILLINS; ll1 - PMHx: 19:06 COPD; Hypothyroidism; Asthma; ll1 - PSHx: 19:06 Appendectomy; Abdominal Surgeries for the blockage x 3; ll1 - Immunization history:: Adult Immunizations up to date. - Social history:: Smoking status: Patient denies any tobacco usage or history of. Patient/guardian denies using alcohol, street drugs, tobacco products. ROS: 20:05 Constitutional: Negative for fever, chills, and weight loss, Eyes: Negative for injury, mh7 pain, redness, and discharge, ENT: Negative for injury, pain, and discharge, Neck: Negative for injury, pain, and swelling, Cardiovascular: Negative for chest pain, palpitations, and edema, Respiratory: Negative for shortness of breath, cough, wheezing, and pleuritic chest pain, Back: Negative for injury and pain, : Negative for injury, bleeding, discharge, and swelling, MS/Extremity: Negative for injury and deformity, Skin: Negative for injury, rash, and discoloration, Neuro: Negative for headache, weakness, numbness, tingling, and seizure, Psych: Negative for depression, anxiety, suicide ideation, homicidal ideation, and hallucinations, Allergy/Immunology: Negative for hives, rash, and allergies, Endocrine: Negative for neck swelling, polydipsia, polyuria, polyphagia, and marked weight changes, Hematologic/Lymphatic: Negative for swollen nodes, abnormal bleeding, and unusual bruising. Exam: 20:05 Constitutional: This is a well developed, well nourished patient who is awake, alert, mh7 and in no acute distress. Head/Face: Normocephalic, atraumatic. Neck: Trachea midline, no thyromegaly or masses palpated, and no cervical lymphadenopathy. Supple, full range of motion without nuchal rigidity, or vertebral point tenderness. No Meningismus. Chest/axilla: Normal chest wall appearance and motion. Nontender with no deformity. No lesions are appreciated. Cardiovascular: Regular rate and rhythm with a normal S1 and S2. No gallops, murmurs, or rubs. Normal PMI, no JVD. No pulse deficits. Respiratory: Lungs have equal breath sounds bilaterally, clear to auscultation and percussion. No rales, rhonchi or wheezes noted. No increased work of breathing, no retractions or nasal flaring. 20:05 Back: No spinal tenderness. No costovertebral tenderness. Full range of motion. Skin: Warm, dry with normal turgor. Normal color with no rashes, no lesions, and no evidence of cellulitis. MS/ Extremity: Pulses equal, no cyanosis. Neurovascular intact. Full, normal range of motion. Neuro: Awake and alert, GCS 15, oriented to person, place, time, and situation. Cranial nerves II-XII grossly intact. Motor strength 5/5 in all extremities. Sensory grossly intact. Cerebellar exam normal. Normal gait. Psych: Awake, alert, with orientation to person, place and time. Behavior, mood, and affect are within normal limits. 20:05 Abdomen/GI: Inspection: scar(s), are noted in the epigastric area, umbilical area and suprapubic area, Bowel sounds: active, all quadrants, Palpation: moderate abdominal tenderness, in all quadrants, Rectal exam: the exam is deferred, because of patient request, Indicators: McBurney's point is not tender, Humphrey's sign is negative, Rovsing's sign is negative, Obturator sign is negative, Psoas sign is negative, Liver: no appreciated palpable abnormalities, Hernia: not appreciated. 20:09 ECG was reviewed by the Attending Physician. [facility] Vital Signs: 19:03 BP 130 / 82; Pulse 88; Resp 17; Temp 97.0; Pulse Ox 97% on R/A; Pain 10/10; ll1 21:00 BP 132 / 96; Pulse 92; Resp 18; Pulse Ox 97% on R/A; vc 22:00 BP 121 / 69; Pulse 81; Resp 16; Pulse Ox 97% on 2 lpm NC; vc MDM: 19:21 Patient medically screened. [facility] 20:49 Differential diagnosis: bowel obstruction, cholecystitis, Cholelithiasis, [facility] diverticulitis, gastroesophageal reflux disease, Mesenteric ischemia or infarction, non-specific abd pain, pancreatitis, Peptic Ulcer Disease. Data reviewed: vital signs, nurses notes, old medical records, lab test result(s), amylase and lipase, CBC, electrolytes, radiologic studies, CT scan. Data interpreted: Pulse oximetry: on room air is 97 %. Counseling: I had a detailed discussion with the patient and/or guardian regarding: the historical points, exam findings, and any diagnostic results supporting the discharge/admit diagnosis, lab results, radiology results, the need for further work-up and treatment in the hospital. 21:24 Response to treatment: the patient's symptoms have mildly improved after treatment. [facility] 02/12 19:23 Order name: Basic Metabolic Panel [facility] 02/12 19:23 Order name: CBC with Diff [facility] 02/12 19:23 Order name: Hepatic Function; Complete Time: 20:46 [facility] 02/12 19:23 Order name: Lipase; Complete Time: 20:46 [facility] 02/12 19:24 Order name: Basic Metabolic Panel; Complete Time: 20:46 [facility] 02/12 19:24 Order name: CBC with Automated Diff [facility] 02/12 19:42 Order name: Urine Microscopic Only; Complete Time: 20:[address] [facility] 02/12 19:42 Order name: Urine Culture [facility] 02/12 19:42 Order name: Urine Dipstick--Ancillary (enter results); Complete Time: 20:[address] [facility] 02/12 19:45 Order name: CT Abd/Pelvis - IV Contrast Only; Complete Time: 20:46 [facility] 02/12 20:27 Order name: CREATININE WHOLE BLOOD; Complete Time: 20:46 [facility] 02/12 22:04 Order name: CBC Smear Scan [facility] 02/12 19:23 Order name: IV Saline Lock; Complete Time: 20:03 [facility] 02/12 19:23 Order name: Labs collected and sent; Complete Time: 20:03 [facility] 02/12 19:23 Order name: Urine Dipstick-Ancillary (obtain specimen); Complete Time: 19:36 [facility] 02/12 19:23 Order name: EKG - Nurse/Tech; Complete Time: 19:36 [facility] 02/12 20:49 Order name: NG Tube; Complete Time: 22:05 [facility] 02/12 21:01 Order name: CONS Pharmacy Consult [facility] 02/12 21:01 Order name: NPO [facility] EC:09 Rate is 85 beats/min. Rhythm is regular. QRS [place] is Normal. ND interval is normal. QRS mh7 interval is normal. QT interval is normal. No Q waves. T waves are Inverted in leads V1, V2. No ST changes noted. Clinical impression: NSR w/ Non-specific ST/T Changes. Administered Medications: 19:40 Drug: Zofran (Ondansetron) 4 mg Route: IVP; Site: left forearm; vc 19:40 Drug: NS 0.9% 1000 ml Route: IV; Rate: 125 ml/hr; Site: left forearm; vc 19:40 Drug: Pepcid 20 mg Route: IVP; Site: left forearm; vc 21:40 Drug: morphine 2 mg Route: IVP; Site: left forearm; vc 21:40 Drug: NS 0.9% 1000 ml Route: IV; Rate: 1000 ml; Site: left forearm; vc 22:00 Drug: morphine 2 mg Route: IVP; Site: left forearm; vc 22:30 Follow up: Response: No adverse reaction; Pain is decreased vc 22:38 Drug: Cipro 400 mg Volume: 200 ml; Route: IVPB; Infused Over: 60 mins; Site: left vc forearm; 22:48 Follow up: IV Status: Infusion continued upon admission vc 22:38 Drug: Flagyl 500 mg Volume: 100 ml; Route: IVPB; Rate: 200 ml/hr; Infused Over: 30 vc mins; Site: right forearm; 22:48 Follow up: IV Status: Infusion continued upon admission vc Disposition: 02/13/20 20:53 Hospitalization ordered by Drew Parmar for Inpatient Admission. Preliminary diagnosis is Small Bowel Obstruction. - Bed requested for Telemetry/MedSurg (Inpatient). - Status is Inpatient Admission. vc - Condition is Stable. - Problem is an acute exacerbation. - Symptoms have improved. Signatures: Dispatcher [employer] [facility] [place] RN RN Johanna Gomez RN RN Doug Swartz RN RN [facility] Sean Barcenas MD MD 7 Corrections: (The following items were deleted from the chart) 21:20 20:53 Hospitalization Ordered by Drew Parmar MD for Inpatient Admission. Preliminary cg diagnosis is Small Bowel Obstruction. Bed requested for Telemetry/MedSurg (Inpatient). Status is Inpatient Admission. Condition is Stable. Problem is an acute exacerbation. Symptoms have improved. [facility] 23:03 21:20 02/13/2020 20:53 Hospitalization Ordered by Drew Parmar MD for Inpatient vc Admission. Preliminary diagnosis is Small Bowel Obstruction. Bed requested for Telemetry/MedSurg (Inpatient). Status is Inpatient Admission. Condition is Stable. Problem is an acute exacerbation. Symptoms have improved.
--- NOTE | 2020-02-17 20:01 | PN ---
Date of Progress Note: 02/17/2020 Reason For Followup: Small bowel obstruction. Subjective: Patient is doing better. Passing flatus. Tolerating clear liquid diet. We are going t o advance diet today. Review of Systems: Ten points otherwise unremarkable. Objective: Abdomen: Soft and depressible. Extremities: No calf tenderness. Plan: Advance diet. She understands to discuss with her diet with dietitian to see we can minimize bowel obstructions in the future. Ambulation. If she fail diet test, then she will have to consider once again laparotomy, bowel resection. JULIANNA/FERNYL Voice ID: [id number] Report ID: [id number]
[2020-02-18] MEDS: D5 0.45 NS 1,000 ML IV SCH (04:52)
[2020-02-18 06:14] LABS: Basophils % 0.8 % (0-1.3); Hematocrit 37.3 % (36.0-45.0); Lymphocytes % 18.1 % (15.3-44.8); MPV 8.9 fL (7.6-11.3); RBC Red Blood Cell Count 4.17 M/uL (3.86-4.86)
[2020-02-18 06:19] LABS: BUN Blood Urea Nitrogen 2 mg/dL (7-18); Bicarbonate 29 mmol/L (21-32); Glucose Level 98 mg/dL (74-106); Phosphorus 2.3 mg/dL (2.5-4.9); Potassium 3.4 mmol/L (3.5-5.1); Sodium Level 144 mmol/L (136-145)
[2020-02-18] MEDS ORDERED: POTASSIUM CL SA 10 MEQ TAB PO ONE (06:38)
[2020-02-18] MEDS: POTASS/SODIUM PHOSPHATE 1 PKT POWD.PACK PO SCH (07:51)
[2020-02-18] MEDS: PANTOPRAZOLE 40 MG INJ IVP SCH (07:52)
[2020-02-18 13:40] VITALS: BP 149/67; TEMP 97.1
--- NOTE | 2020-02-18 18:10 | P.DS ---
Admission Date: 02/13/20 Discharge Date: 02/18/20 Disposition: ROUTINE DISCHARGE Discharge Condition: FAIR Reason for Admission: HAD LARGE BM - Problems (1) Small bowel obstruction Status: Acute (2) Electrolyte abnormality Status: Acute Brief History of Present Illness: MS. LAU HAS HAS RECURRENT BOWEL OBSTRUCTION SINCE AGE 13. HER LAST SURGERY WAS IN 1994 FOR LATHA. FIRST ONE WAS FOR APPENDICITIS. SHE COMES WITH ABDOMEN PAIN, NAUSEA, VOMITING AND DISTENSION. I CALLED DR. MALDONADO SHE STILL IS QUITE DISTENDED AND HE SAID HE WILL BE THERE A LUNCH TIME. Hospital Course: MS. LAU HAS HAD FEW EPISODES OF BOWEL OBSTRUCTION. SHE IS DOING GOOD AFTER FEW DAYS OF NGT AND LIS. SHE IS ABLE TO TOLERATE SOLID FOODS TODAY AND IS DISCHARGED IN STABLE CONDITION. Vital Signs/Physical Exam: Temp Pulse Resp BP Pulse Ox 97.1 F 67 17 149/67 H 94 02/18/20 12:00 02/18/20 12:00 02/18/20 12:00 02/18/20 12:00 02/18/20 12:00 Laboratory Data at Discharge: WBC 5.6 K/uL (4.3-10.9) 02/18/20 05:45 Hgb 12.6 g/dL (12.0-15.0) 02/18/20 05:45 Hct 37.3 % (36.0-45.0) 02/18/20 05:45 Plt Count 227 K/uL (152-406) D 02/18/20 05:45 Sodium 144 mmol/L (136-145) 02/18/20 05:45 Potassium 3.4 mmol/L (3.5-5.1) L 02/18/20 05:45 BUN 2 mg/dL (7-18) L 02/18/20 05:45 Creatinine 0.61 mg/dL (0.55-1.3) 02/18/20 05:45 Glucose 98 mg/dL (74-106) 02/18/20 05:45 Phosphorus 2.3 mg/dL (2.5-4.9) L 02/18/20 05:45 Magnesium 1.9 mg/dL (1.8-2.4) 02/16/20 05:26 Total Bilirubin 0.3 mg/dL (0.2-1.0) 02/13/20 19:55 AST 24 U/L (15-37) 02/13/20 19:55 ALT 39 U/L (12-78) 02/13/20 19:55 Alkaline Phosphatase 70 U/L (45-117) 02/13/20 19:55 Lipase 84 U/L (73-393) 02/13/20 19:55 Home Medications: Aspirin 1 tab PO BEDTIME 11/01/19 Calcium Carbonate [Calcium] 1 tab PO DAILY 11/01/19 Docusate Sodium [Dulcolax Stool Softener] 1 tab PO BID 11/01/19 Fluticasone [Flovent Hfa 110*] 2 inh IH BID 11/01/19 Levothyroxine Sodium 1 tab PO [id number] 11/01/19 Liothyronine Sodium [Cytomel] 1 tab PO [id number] 11/01/19 Mometasone/Formoterol [Dulera 100 Mcg/5 Mcg Inhaler] 2 inh IH BEDTIME 11/01/19 Tiotropium [place] [Spiriva] 2.5 mcg IH DAILY 11/01/19 Alendronate Sodium [Fosamax] 1 tab PO SEECOM 02/14/20 Vit D3 78219 1 cap PO SEECOM 02/14/20 Patient Discharge Instructions: make sure to be able to tolerate food before discharge.
[2020-02-19] MEDS ORDERED: LIOTHYRONINE SOD 5 MCG TAB PO SCH (06:00)
[2020-02-19] MEDS ORDERED: LEVOTHYROXINE SOD 0.112 MG TAB PO SCH (06:00)
== END 2020-02-18 15:12 | disposition home or self-care (01) | DRG 390 ==
LOC: ER 18:50 → ERHOLD 20:57 → 2ND 22:38
PROVIDERS: ADMIT Internal Medicine; ATTEND Internal Medicine
DX: K56.609 Unspecified intestinal obstruction, unspecified as to partial versus complete obstruction (principal); E03.9 Hypothyroidism, unspecified; E87.8 Other disorders of electrolyte and fluid balance, not elsewhere classified; J44.9 Chronic obstructive pulmonary disease, unspecified; Z79.82 Long term (current) use of aspirin; Z79.890 Hormone replacement therapy; Z79.899 Other long term (current) drug therapy; Z87.891 Personal history of nicotine dependence; Z90.49 Acquired absence of other specified parts of digestive tract; Z88.0 Allergy status to penicillin
CPT/HCPCS: 36415; 74018; 74019; 74177; 80048; 80076; 81003; 81015; 82565; 83690; 83735; 84100; 84132; 85025; 87077; 87086; 87088; 87186; 93005; 99285; C9113; J0744; J2270; J2405; J7030; J7799; Q9967

== ENCOUNTER 2020-07-24 17:32 | Inpatient (IN) | payer OTHER, BC ==
--- OUTSIDE RECORDS SUMMARY | 2020-07-24 17:34 | XMS REPORT | Clinical Summary ---
:1950 Author Organization [facility] Address [address] [place] [address] Care Team Providers Name Role Phone Paulette [...] tablet Active Problems No known active problems Surgical History Surgery Date Site/Laterality Comments SMALL INTESTINE SURGERY 1975, 93 x2- Related to bowel blockag e TUBAL LIGATION ESOPHAGOGASTRODUODENOSCOPY (EGD) 01/10/2018 N/A Procedure: EGD; Surgeon: Jennifer Ro MD; Loc ation: [facility]; Service: Gastroenterology ; Laterality: N/A; APPENDECTOMY 09/18/1961 - 09/17/1962 COLONOSCOPY 09/18/2013 - 09/17/2014 LARYNGOSCOPY, DIRECT 10/08/2018 Throat/N/A Procedure: MICRO LARYNGOSCOPY W/ GEL INFECTION, LARYNGOPLASTY, S TEROID INJECTION,; Thomas geon: Pema Wilson MD; Location: [facility] 18 OR; Service: EN T; Laterality: N/A; Medical devices from this surgery are in the Implants sec tion. Medical History Medical History Date Comments Asthma COPD (chronic obstructive pulmonary disease) (HCC) Allergic Anxiety IBS (irritable bowel syndrome) 2014 was told in remission Anesthesia NHAP/NFHAP - Dentiti on: dental brigde and capped teeth. Exercises 3 to 4 times per week [place]. Shortness of breath Climbing stairs, wal stacie up hill. No shortness of breath with every day walking. On home oxygen therapy 2 L at night. Hypothyroidism Family History Medical History Relation Name Comments Kidney disease Brother Kidney disease Father Cancer Mother Relation Name Status Comments Brother Father Mother Social History Tobacco Use Types Packs/Day Years Used Date Former Smoker Cigarettes 1 08/24/1969 - 0 09/24/2008 Smokeless Tobacco: Never Used Alcohol Use Drinks/Week oz/Week Comments Yes 10 Cans of beer 10.0 Sex Assigned at Date Recorded Not on file Last Filed Vital Signs Not on file Plan of Treatment Health Maintenance Due Date Last Done Comments BREAST CANCER SCREENING 1998 COLONOSCOPY SCREENING 1998 SHINGLES VACCINES (#1) 1998 65+ PNEUMOCOCCAL VACCINE (1 of 1 - PPSV23) 2013 INFLUENZA VACCINE 04/18/2020 05/28/2018 Implants Implanted Type Area Carrier Associate Device Shelf Model / Identifier Expiration Serial / Date Lot Implant Injctbl Radiesse Voicegel 1cc - [id number] Surgical Bilateral [employer] 07/21/2020 [id number] / Implanted: Qty: 1 on 10/08/2018 by Pema Wilson MD at [facility] Implants; : Throat / Expanders; [id number] Extenders; Surgical Wires Results Not on fileafter 07/24/2019 Insurance Payer Benefit Plan / Subscriber ID Effective Dates Phone Addre ss Type Group BCBS BCBS CHOICE [id number] 2013-Present PPO PPO/FEDERAL EMPL PPO MEDICARE MEDICARE PART A [id number] 2013-Present [place] B Advance Directives For more information, please contact: [phone] Type Date Recorded Patient Supervisor Mending Explanati on Advance Directives, Living Will 01/10/2018 9:34 AM and Medical Power of Child Care Director
--- OUTSIDE RECORDS SUMMARY | 2020-07-24 17:35 | XMS REPORT | Continuity of Care Document ---
:1950 Author Organization [facility] t Address [address] [place] [address] Care Team Providers Name Role Phone Bill [...] Source Natural brother Kidney disease [place] [employer] Natural father Kidney disease [place] [employer] Natural mother Cancer [facility] Social History Social Habit Start Date Stop Date Quantity Comments Source Sex Assigned At [facility] ethodi Cigarettes smoked 2019-01-31 2019-01-31 [place] [employer] current (pack per 00:00:00 00:00:00 day) - Reported Tobacco use and 2019-01-31 2019-01-31 Never used [facility] ethodist exposure 00:00:00 00:00:00 Alcohol intake 2019-01-31 2019-01-31 Current drinker [place] [employer] 00:00:00 00:00:00 of alcohol (finding) History of tobacco 1969-08-24 2008-09-24 Current smoker [facility] [employer] use 00:00:00 00:00:00 Smoking Status Start Date Stop Date Source Former smoker 2019-01-31 00:00:00 2019-01-31 00:00:00 Jonnathan Matthews Medications Ordered Filled Start Stop Current Ordering Indication Dosage Frequency Signature Comments Components Source Medication Medication Date Date Medication? Clinician (SIG) Name Name tiotropium Yes Inhale. Charleen ton bromide 5-16 [facility] (SPIRIVA 10:42: st WITH 57 HANDIHALER INHL) mometasone/ Yes Inhale. Ryan ston formoterol 5-16 [facility] (DULERA 10:42: st [facility]) 57 fluticasone Yes 2{spray QD 2 sprays Jonnathan (FLONASE) 5-16 } by Each [facility] 50 10:42: Nare route st mcg/actuati 57 daily. on nasal spray aspirin Yes 81mg QD Take 81 mg Charleen ton (ECOTRIN) 5-16 by mouth Method i 81 MG 10:42: daily. st enteric 57 coated tablet levothyroxi Yes Hansa dent ne 5-08 [facility] (SYNTHROID, 00:00: st LEVOXYL) 00 112 mcg tablet alendronate Yes Hansa n (FOSAMAX) 5 5-31 [facility] MG tablet 00:00: [...] Source Future Scheduled 2020-04-18 INFLUENZA VACCINE Hansa Matthews Test 00:00:00 [code = INFLUENZA VACCINE] Future Scheduled 2013 65+ PNEUMOCOCCAL Jonnathan Matthews Test 00:00:00 VACCINE (1 of 1 - PPSV23) [code = 65+ PNEUMOCOCCAL VACCINE (1 of 1 - PPSV23)] Future Scheduled 1998 BREAST CANCER Jonnathan Benedict [facility]ist Test 00:00:00 SCREENING [code = BREAST CANCER SCREENING] Future Scheduled 1998 COLONOSCOPY SCREENING [place] [facility] Test 00:00:00 [code = COLONOSCOPY SCREENING] Future Scheduled 1998 SHINGLES VACCINES (#1) Kam [place] [employer] Test 00:00:00 [code = SHINGLES VACCINES (#1)] Encounters Start End Encounter Admission Attending Care Care Encounter Source Date/Time Date/Time Type Type Clinicians Facility Department ID 2019-12-03 2019-12-03 [id number] 00:00:00 00:00:00 [place]ito Gates [id number] [place] [id number] Professio [phone] nal 220 Building 2019-11-12 2019-11-12 Office [facility] [id number] 09:00:28 09:41:00 Visit Pablito Gates [id number] [place] [id number] Professio [phone] nal 220 [facility] Results This patient has no known results.
[2020-07-24] MEDS ORDERED: MORPHINE 4 MG/ML SYR ONE ×2 (19:01→21:03)
[2020-07-24] MEDS ORDERED: NA CHLORIDE 0.9% 500 ML ONE (19:01)
[2020-07-24] MEDS ORDERED: FAMOTIDINE 20 MG/2 ML VIAL IV ONE (19:01)
[2020-07-24] MEDS ORDERED: ONDANSETRON 4 MG/2 ML VIAL ONE ×2 (19:01→20:47)
[2020-07-24 19:25] LABS: Absolute Lymphocytes (CBC) 0.8 K/uL (0.7-4.9); Basophils % 0.4 % (0-1.3); MPV 9.4 fL (7.6-11.3); RBC Red Blood Cell Count 4.88 M/uL (3.86-4.86)
[2020-07-24 19:42] LABS: ALT/SGPT 21 U/L (12-78); AST/SGOT 16 U/L (15-37); Albumin 3.7 g/dL (3.4-5.0); Alkaline Phosphatase 77 U/L (45-117); BUN Blood Urea Nitrogen 17 mg/dL (7-18); Bicarbonate 31 mmol/L (21-32); Bilirubin Direct < 0.1 mg/dL (0-0.2); Bilirubin Total 0.3 mg/dL (0.2-1.0); Glucose Level 105 mg/dL (74-106); Lipase 90 U/L (73-393); Protein, Total 8.2 g/dL (6.4-8.2); Sodium Level 138 mmol/L (136-145)
[2020-07-24 19:57] LABS: Blood Morphology Comment NOT SEEN (NOT SEEN); Platelet Estimate ADEQ; White Blood Cell Scan OK (OK)
--- NOTE | 2020-07-24 20:24 | RAD REPORT ---
EXAM DESCRIPTION: CT - Abdomen Pelvis W Contrast - 07/24/2020 8:05 pm CLINICAL HISTORY: Abdominal pain COMPARISON: January 2020 TECHNIQUE: Computed axial tomography of the abdomen pelvis was obtained. 100 cc Isovue-300 was admin istered intravenously. Oral contrast was not requested which limits evaluation of bowel. All CT scans are performed using dose optimization technique as appropriate and may include automated exposure control or mA/KV adjustment according to patient size. FINDINGS: Hepatic cysts The spleen, pancreas and adrenals unremarkable Renal cysts. Right renal cortical thinning probably secondary to prior inflammation. Small nonobstruc ting right renal calculus Gallstones without gallbladder wall thickening Moderate dilatation of jejunum. The ileum is decompressed. Colon is decompressed. This is compatible with small bowel obstruction. The stomach is distended IMPRESSION: Small bowel obstruction
--- NOTE | 2020-07-24 21:08 | EDPHYS ---
Physician Documentation [facility] Name: Korina Flores Age: 69 yrs Sex: Female : 1950 Arrival Date: 07/24/2020 Time: 17:34 Bed 7 Private MD: Drew Parmar V ED Physician Juanjose Rodrgiuez HPI: 07/24 18:46 This 69 yrs old Female presents to ER via Ambulatory with complaints of kdr Abdominal Pain. 18:46 The patient presents with abdominal pain that is diffuse. Onset: The symptoms/episode kdr began/occurred suddenly, this morning, at 10:00. The symptoms do not radiate. Associated signs and symptoms: Pertinent positives: nausea, Pertinent negatives: chest pain, constipation, diarrhea, dysuria, palpitations, shortness of breath, vaginal discharge, vomiting, vomiting blood. The symptoms are described as achy, crampy, waxing/waning. Modifying factors: The symptoms are alleviated by remaining still, the symptoms are aggravated by touching the area, walking. Severity of pain: At its worst the pain was moderate in the emergency department the pain is unchanged. The patient has experienced similar episodes in the past, multiple times. The patient has not recently seen a physician. Historical: - Allergies: 17:42 PENICILLINS; ss - PMHx: 17:42 Asthma; COPD; Hypothyroidism; ss - PSHx: 17:42 Appendectomy; Abdominal Surgeries for the blockage x 3; ss - Immunization history:: Adult Immunizations up to date. - Social history:: Smoking status: Patient denies any tobacco usage or history of. ROS: 18:46 Constitutional: Negative for fever, chills, and weight loss, Eyes: Negative for injury, kdr pain, redness, and discharge, ENT: Negative for injury, pain, and discharge, Neck: Negative for injury, pain, and swelling, Cardiovascular: Negative for chest pain, palpitations, and edema, Respiratory: Negative for shortness of breath, cough, wheezing, and pleuritic chest pain, Back: Negative for injury and pain, : Negative for injury, bleeding, discharge, and swelling, MS/Extremity: Negative for injury and deformity, Skin: Negative for injury, rash, and discoloration, Neuro: Negative for headache, weakness, numbness, tingling, and seizure activity. Psych: Negative for depression, anxiety, suicide ideation, homicidal ideation, and hallucinations, Allergy/Immunology: Negative for hives, rash, and allergies, Endocrine: Negative for neck swelling, polydipsia, polyuria, polyphagia, and marked weight changes, Hematologic/Lymphatic: Negative for swollen nodes, abnormal bleeding, and unusual bruising. 18:46 Abdomen/GI: Positive for abdominal pain, nausea, Negative for black/tarry stool. Exam: 18:46 Constitutional: This is a well developed, well nourished patient who is awake, alert, kdr and in no acute distress. Head/Face: Normocephalic, atraumatic. Eyes: Pupils equal round and reactive to light, extra-ocular motions intact. Lids and lashes normal. Conjunctiva and sclera are non-icteric and not injected. Cornea within normal limits. Periorbital areas with no swelling, redness, or edema. Neck: Trachea midline, no thyromegaly or masses palpated, and no cervical lymphadenopathy. Supple, full range of motion without nuchal rigidity, or vertebral point tenderness. No Meningismus. Chest/axilla: Normal chest wall appearance and motion. Nontender with no deformity. No lesions are appreciated. Cardiovascular: Regular rate and rhythm with a normal S1 and S2. No gallops, murmurs, or rubs. Normal PMI, no JVD. No pulse deficits. Respiratory: Lungs have equal breath sounds bilaterally, clear to auscultation and percussion. No rales, rhonchi or wheezes noted. No increased work of breathing, no retractions or nasal flaring. Back: No spinal tenderness. No costovertebral tenderness. Full range of motion. Skin: Warm, dry with normal turgor. Normal color with no rashes, no lesions, and no evidence of cellulitis. MS/ Extremity: Pulses equal, no cyanosis. Neurovascular intact. Full, normal range of motion. Neuro: Awake and alert, GCS 15, oriented to person, place, time, and situation. Cranial nerves II-XII grossly intact. Motor strength 5/5 in all extremities. Sensory grossly intact. Cerebellar exam normal. Normal gait. Psych: Awake, alert, with orientation to person, place and time. Behavior, mood, and affect are within normal limits. 18:46 Abdomen/GI: Inspection: distension, Bowel sounds: active, Palpation: voluntary guarding. Vital Signs: 17:40 BP 156 / 74; Pulse 87; Resp 18; Temp 98.6(TE); Pulse Ox 91% on R/A; Weight 63.5 kg; ss Height 5 ft. 5 in. (165.10 cm); Pain 0/10; 19:20 BP 143 / 78; Pulse 70; Resp 18; Pulse Ox 92% ; ea 20:15 BP 146 / 84; Pulse 70; Resp 18; Pulse Ox 98% ; ea 21:31 BP 107 / 70; Pulse 68; Resp 18; Pulse Ox 98% on R/A; ea 17:40 Body Mass Index 23.30 (63.50 kg, 165.10 cm) ss MDM: 18:46 Data reviewed: vital signs, nurses notes, lab test result(s), radiologic studies. kdr Counseling: I had a detailed discussion with the patient and/or guardian regarding: the historical points, exam findings, and any diagnostic results supporting the discharge/admit diagnosis, lab results, radiology results. 19:55 Patient medically screened. [facility] 07/24 18:38 Order name: Basic Metabolic Panel; Complete Time: 20:28 [facility] 07/24 20:28 Interpretation: Normal except: GFR 56. [facility] 07/24 18:38 Order name: CBC with Diff; Complete Time: 20:28 [facility] 07/24 20:28 Interpretation: Normal except: WBC 11.7; RBC 4.88; LYM% 7.0; SAVANAH% 88.1; NEUT A 10.3. [facility] 07/24 18:38 Order name: Hepatic Function; Complete Time: 20:28 [facility] 07/24 20:28 Interpretation: Normal except: A/G 0.8; GLOB 4.5. [facility] 07/24 18:38 Order name: Lipase; Complete Time: 20:28 [facility] 07/24 20:28 Interpretation: Within normal limits: LIP 90. [facility] 07/24 19:58 Order name: CBC Smear Scan; Complete Time: 20:28 [facility] 07/24 21:29 Order name: Basic Metabolic Panel [facility] 07/24 19:46 Order name: CT Abd/Pelvis - IV Contrast Only; Complete Time: 20:27 [facility] 07/24 21:29 Order name: Basic Metabolic Panel [facility] 07/24 21:29 Order name: Lipase [facility] 07/24 21:29 Order name: Lipase EDMS 07/24 21:29 Order name: Liver (Hepatic) Function EDMS 07/24 21:30 Order name: CBC with Automated Diff EDMS 07/24 21:30 Order name: CBC with Automated Diff EDMS 07/24 21:30 Order name: Liver (Hepatic) Function EDMS 07/24 18:38 Order name: IV Saline Lock; Complete Time: 18:52 kdr 07/24 18:38 Order name: Labs collected and sent; Complete Time: 18:52 kdr 07/24 20:31 Order name: NG Tube; Complete Time: 21:27 ea 07/24 21:30 Order name: NPO EDMS 07/24 21:31 Order name: CONS Physician Consult EDMS Administered Medications: 18:50 Drug: Zofran (Ondansetron) 4 mg Route: IVP; Site: left wrist; em 20:17 Follow up: Response: No adverse reaction mg2 18:50 Drug: NS 0.9% 500 ml Route: IV; Rate: bolus; Site: left wrist; em 21:32 Follow up: Response: No adverse reaction; IV Status: Completed infusion; IV Intake: ea 500ml 18:52 Drug: morphine 4 mg Route: IVP; Site: left wrist; em 20:17 Follow up: Response: No adverse reaction mg2 18:55 Drug: Pepcid 20 mg Route: IVP; Site: left wrist; em 20:17 Follow up: Response: No adverse reaction mg2 20:42 Drug: Zofran (Ondansetron) 4 mg Route: IVP; Site: left hand; ea 21:32 Follow up: Response: No adverse reaction ea 21:16 Drug: morphine 4 mg Route: IVP; Site: left antecubital; ea 21:32 Follow up: Response: No adverse reaction; Pain is decreased ea 21:16 Drug: Phenergan 6.25 mg Route: IVP; Site: left hand; ea 21:32 Follow up: Response: No adverse reaction; Nausea is decreased ea Disposition: 07/24/20 21:08 Hospitalization ordered by Drew Parmar for Inpatient Admission. Preliminary diagnosis is Intestinal obstruction. - Bed requested for Telemetry/MedSurg (Inpatient). - Status is Inpatient Admission. mg2 - Condition is Stable. - Problem is an ongoing problem. - Symptoms are resolved. Signatures: Dispatcher [employer] EDMS Duong English, MD MD [facility] Pranav Parisi, RN RN em Janine Lawton, JANINE MEHTA ss Any Martin, Juanjose Galo RN, ea, MD MD tw4 Paco Savage RN RN mg2 Corrections: (The following items were deleted from the chart) 21:57 21:08 Hospitalization Ordered by rDew Parmar MD for Inpatient Admission. Preliminary mg2 diagnosis is Intestinal obstruction. Bed requested for Telemetry/MedSurg (Inpatient). Status is Inpatient Admission. Condition is Stable. Problem is an ongoing problem. Symptoms are resolved. tw4 22:16 21:57 07/24/2020 21:08 Hospitalization Ordered by Drew Parmar MD for Inpatient mg2 Admission. Preliminary diagnosis is Intestinal obstruction. Bed requested for Telemetry/MedSurg (Inpatient). Status is Inpatient Admission. Condition is Stable. Problem is an ongoing problem. Symptoms are resolved. mg2
--- NOTE | 2020-07-24 21:08 | ER ---
Nurse's Notes [facility] Name: Korina Flores Age: 69 yrs Sex: Female : 1950 Arrival Date: 07/24/2020 Time: 17:34 Bed 7 Private MD: Drew Parmar V Diagnosis: Intestinal obstruction Presentation: 07/24 17:40 Chief complaint: Patient states: abd pain that began today. Pt reports this has ss occurred before in the past and it was a bowel blockage. Coronavirus screen: Client denies travel out of the [place] in the last 14 days. Ebola Screen: Patient denies exposure to infectious person. Patient denies travel to an Ebola-affected area in the 21 days before illness onset. Initial Sepsis Screen: Does the patient meet any 2 criteria? No. Patient's initial sepsis screen is negative. Does the patient have a suspected source of infection? No. Patient's initial sepsis screen is negative. Risk Assessment: Do you want to hurt yourself or someone else? Patient reports no desire to harm self or others. Onset of symptoms was July 24, 2020. 17:40 Method Of Arrival: Ambulatory ss 17:40 Acuity: SARY 3 ss Historical: - Allergies: 17:42 PENICILLINS; ss - PMHx: 17:42 Asthma; COPD; Hypothyroidism; ss - PSHx: 17:42 Appendectomy; Abdominal Surgeries for the blockage x 3; ss - Immunization history:: Adult Immunizations up to date. - Social history:: Smoking status: Patient denies any tobacco usage or history of. Screenin:35 Abuse screen: Denies threats or abuse. Nutritional screening: No deficits noted. em Tuberculosis screening: No symptoms or risk factors identified. Fall Risk None identified. Assessment: 17:42 Reassessment: Pt reports her baseline RA O2 is 90%. ss 18:40 General: Appears in no apparent distress. uncomfortable, Behavior is calm, cooperative, em appropriate for age, Denies fever. Pain: Complains of pain in right lower quadrant and left lower quadrant. Neuro: Level of Consciousness is awake, alert, obeys commands, Oriented to person, place, time, situation, Appropriate for age. Cardiovascular: Capillary refill < 3 seconds Patient's skin is warm and dry. Respiratory: Airway is patent Respiratory effort is even, unlabored, Respiratory pattern is regular, symmetrical. GI: Abdomen is flat, Bowel sounds present X 4 quads. Abd is soft X 4 quads Reports nausea, vomiting. Derm: Skin is intact, is healthy with good turgor, Skin is pink, warm \T\ dry. Musculoskeletal: Capillary refill < 3 seconds, Range of motion: intact in all extremities. 19:19 Reassessment: Patient and/or family updated on plan of care and expected duration. Pain ea level reassessed. Patient is alert, oriented x 3, equal unlabored respirations, skin warm/dry/pink. General: Appears in no apparent distress. Behavior is cooperative, appropriate for age. 19:57 Reassessment: Pt taken to CT. ea 20:42 Reassessment: Patient and/or family updated on plan of care and expected duration. Pain ea level reassessed. Patient is alert, oriented x 3, equal unlabored respirations, skin warm/dry/pink. 21:31 Reassessment: Patient and/or family updated on plan of care and expected duration. Pain ea level reassessed. Patient is alert, oriented x 3, equal unlabored respirations, skin warm/dry/pink. Vital Signs: 17:40 BP 156 / 74; Pulse 87; Resp 18; Temp 98.6(TE); Pulse Ox 91% on R/A; Weight 63.5 kg; ss Height 5 ft. 5 in. (165.10 cm); Pain 0/10; 19:20 BP 143 / 78; Pulse 70; Resp 18; Pulse Ox 92% ; ea 20:15 BP 146 / 84; Pulse 70; Resp 18; Pulse Ox 98% ; ea 21:31 BP 107 / 70; Pulse 68; Resp 18; Pulse Ox 98% on R/A; ea 17:40 Body Mass Index 23.30 (63.50 kg, 165.10 cm) ED Course: 17:34 Patient arrived in ED. mr 17:35 Drew Parmar MD is Private Physician. mr 17:41 Triage completed. ss 17:42 Arm band placed on right wrist. ss 18:35 Patient has correct armband on for positive identification. Placed in gown. Bed in low em position. Call light in reach. Pulse ox on. NIBP on. 18:38 Duong English MD is Attending Physician. kdr 18:42 Pranav Parisi RN is Primary Nurse. em 18:57 Initial lab(s) drawn, by me, sent to lab. Inserted saline lock: 20 gauge in left wrist, em using aseptic technique. Blood collected. 19:46 Attending Physician role handed off by Duong English MD tw4 19:46 Juanjose Rodriguez MD is Attending Physician. tw4 20:05 CT Abd/Pelvis - IV Contrast Only In Process Unspecified. EDMS 20:30 NGT: inserted 16 Fr. via right nare. verified placement of air over stomach, verified ea return of gastric contents, to intermittent suction. Returned gastric contents. 21:07 Drew Parmar MD is Hospitalizing Provider. tw4 21:27 No provider procedures requiring assistance completed. Patient admitted, IV remains in ea place. Administered Medications: 18:50 Drug: Zofran (Ondansetron) 4 mg Route: IVP; Site: left wrist; em 20:17 Follow up: Response: No adverse reaction mg2 18:50 Drug: NS 0.9% 500 ml Route: IV; Rate: bolus; Site: left wrist; em 21:32 Follow up: Response: No adverse reaction; IV Status: Completed infusion; IV Intake: ea 500ml 18:52 Drug: morphine 4 mg Route: IVP; Site: left wrist; em 20:17 Follow up: Response: No adverse reaction mg2 18:55 Drug: Pepcid 20 mg Route: IVP; Site: left wrist; em 20:17 Follow up: Response: No adverse reaction mg2 20:42 Drug: Zofran (Ondansetron) 4 mg Route: IVP; Site: left hand; ea 21:32 Follow up: Response: No adverse reaction ea 21:16 Drug: morphine 4 mg Route: IVP; Site: left antecubital; ea 21:32 Follow up: Response: No adverse reaction; Pain is decreased ea 21:16 Drug: Phenergan 6.25 mg Route: IVP; Site: left hand; ea 21:32 Follow up: Response: No adverse reaction; Nausea is decreased ea Intake: 21:32 IV: 500ml; Total: 500ml. ea Outcome: 21:08 Decision to Hospitalize by Provider. tw4 21:28 Condition: stable ea 21:28 Discharge instructions given to patient, Instructed on the need for admit. 22:13 Admitted to Med/surg accompanied by tech, via stretcher, room 204, with chart, Report mg2 called to JANINE Carty 22:16 Patient left the ED. mg2 Signatures: Dispatcher [employer] Duong Olivas MD MD [facility] Sharla Sun mr Parisi, Pranav, RN RN Janine Pinto RN RN ss Antunez, Elena, RN RN ea Wadley, Terrence, MD MD tw4 Paco Savage RN RN mg2
[2020-07-24] MEDS ORDERED: PROMETHAZINE INJ 25 MG/ML AMP ONE (21:16)
[2020-07-24] MEDS ORDERED: ONDANSETRON 4 MG/2 ML VIAL IV PRN (21:28)
[2020-07-24] MEDS ORDERED: MORPHINE 4 MG/ML SYR IV PRN (21:28)
[2020-07-24] MEDS: D5 0.45 NS 1,000 ML IV SCH (22:44)
[2020-07-24 22:46] VITALS: BMI 23.8
[2020-07-25 05:58] LABS: Absolute Lymphocytes (CBC) 0.4 K/uL (0.7-4.9); Basophils % 0.2 % (0-1.3); Hematocrit 40.7 % (36.0-45.0); MPV 9.5 fL (7.6-11.3); RBC Red Blood Cell Count 4.52 M/uL (3.86-4.86)
[2020-07-25] MEDS ORDERED: MORPHINE 2 MG/ML SYR IV PRN (06:15)
[2020-07-25 06:18] LABS: ALT/SGPT 18 U/L (12-78); AST/SGOT 17 U/L (15-37); Alkaline Phosphatase 62 U/L (45-117); BUN Blood Urea Nitrogen 17 mg/dL (7-18); Bicarbonate 29 mmol/L (21-32); Bilirubin Direct < 0.1 mg/dL (0-0.2); Bilirubin Total 0.4 mg/dL (0.2-1.0); Glucose Level 125 mg/dL (74-106); Lipase 110 U/L (73-393); Potassium 3.9 mmol/L (3.5-5.1); Sodium Level 139 mmol/L (136-145)
[2020-07-25] MEDS: D5 0.45 NS 1,000 ML IV SCH ×3 (06:34→22:00)
--- NOTE | 2020-07-25 11:14 | CON ---
Date of Consultation: 07/25/2020 Diagnosis: Small bowel obstruction. History Of Present Illness: This is a case of a 69-year-old patient with extensive surgical history and extensive history of bowel obstructions on and off. The patient stated that yesterday she thinks she ate too much. She has been watching her diet. She say almost everything blenderized, but she w as a little bit more than usual yesterday and then developed this abdominal pain, comes to the ER eulalio garcia, found to have a bowel obstruction. She has been through this before a few months ago, even i n October, once again another episode of that. She has multiple surgeries for the same. The last f ew times the bowel obstruction had been resolved with conservative treatment and then gave her at [facility] few months of freedom before this happened again. She understands her surgical options that she u nderstand before also, the pros and cons of surgical intervention and she has been trying the best th at can to treat this conservatively. She ate some oat meals with beans and some of the products yest erday, and then the obstruction happened. She once again believe it was just the amount that she ate was a little bit more than usual. Allergies: PENICILLIN. Past Medical History: Asthma, COPD, hypothyroidism, bowel obstructions. Past Surgical History: Includes multiple abdominal surgery for small bowel obstruction. She also wright s an appendectomy in the past. She does not smoke. She does not drink alcohol. Review of Systems: As above. Ten points otherwise unremarkable. Physical Examination: General: The patient is awake, alert. Eyes: Pupils are equal and reactive, anicteric. Neck: Supple. Chest: Clear. Heart: S1, S2. Abdomen: Softly distended. No peritonitis. Mild diffuse tenderness. No rebound. Breasts: Deferred. Pelvic: Deferred. Rectal: Deferred. Extremities: Good capillary refill. Laboratory Data: Blood work shows WBC count of 12.7 with hemoglobin of 13.5, and glucose 125. CAT s can of the abdomen and pelvis interpreted by Dr. Valerio as small bowel obstruction. Assessment: A 69-year-old patient with small bowel obstruction. Once again, we discussed her surgic al options with benefits, alternatives, and risks. Obviously as she tried before, she want to try co nservative treatment first with bowel rest, nasogastric decompression, ambulation in the next 48-72 h ours. If that does not function, she is going to have to once again contemplate the surgical interve ntion options. If also clinically she deteriorates, she once again may have to consider her surgical options sooner. I am with her. We are going to trying to follow her and give more recommendations as the case develops. JULIANNA/PRABHA Voice ID: [id number] Report ID: [id number]
--- NOTE | 2020-07-25 14:08 | P.HP ---
Certification for Inpatient Patient admitted to: Inpatient With expected LOS: >2 Midnights Practitioner: I am a practitioner with admitting privileges, knowledge of patient current condition, hospital course, and medical plan of care. Services: Services provided to patient in accordance with Admission requirements found in Title 42 Section 412.3 of the Code of Federal Regulations Patient History Date of Service: 07/25/20 Reason for admission: BOWEL OBSTRUCTION History of Present Illness: MS LAU HAS HAD MANY SURGERIES IN ABDOMEN AND HAS HAD RECURRENT SMALL BOWEL OBSTRUCTION. SHE WAS FOLLOWING [employer] LIKE GRINDING ALL THE FOOD BEFORE SHE WILL CONSUME. SHE COMES WITH ABDOMEN PAIN AND VOMITING FOR A DAY. SHE ALREADY PASSED SOME GAS YESTERDAY. Allergies Penicillins Allergy (Verified 07/24/20 22:37) Hives/Rash Home Medications: Albuterol Sulfate [Ventolin Hfa] 2 puff IN Q4H PRN 07/24/20 Alendronate Sodium [Fosamax] 70 mg PO Q7D 07/24/20 Atorvastatin Calcium [Lipitor*] 20 mg PO DAILY 07/24/20 Levothyroxine Sodium [Euthyrox] 1 tab PO DAILY 07/24/20 Levothyroxine [Synthroid*] 1 tab PO DAILY 07/24/20 Liothyronine Sodium [Cytomel] 1 tab PO DAILY 07/24/20 - Past Medical/Surgical History Has patient received pneumonia vaccine in the past: Yes Diabetic: No -: COPD -: asthma -: bowel obstructions -: hypothyroid -: osteoparosis -: appendectomy -: ovary removal -: abdominal surgery due adhesions x3 - Family History Brother -: Kidney disease - Social History Smoking Status: Former smoker Alcohol use: Yes CD- Drugs: No Caffeine use: Yes Place of Residence: Home Review of Systems 10-point ROS is otherwise unremarkable Gastrointestinal: Distention, As per HPI Physical Examination - Vital Signs Temperature: 97 F Blood Pressure: 110/58 Pulse: 84 Respirations: 16 Pulse Ox (%): 92 - Physical Exam General: Mild distress HEENT: Atraumatic, PERRLA, Mucous membr. moist/pink, EOMI, Sclerae nonicteric Neck: Supple, 2+ carotid pulse no bruit, No LAD, Without JVD or thyroid abnormality Respiratory: Clear to auscultation bilaterally, Normal air movement Cardiovascular: Regular rate/rhythm, Normal S1 S2 Gastrointestinal: Hyperactive Musculoskeletal: No tenderness Integumentary: No rashes Neurological: Normal gait, Normal speech, Normal strength at 5/5 x4 extr, Normal tone, Normal affect Lymphatics: No axilla or inguinal lymphadenopathy - Studies Laboratory Data (last 24 hrs) 07/24/20 18:50: WBC 11.7 H, Hgb 14.7, Hct 43.0, Plt Count 243 07/24/20 18:50: Sodium 138, Potassium 4.0, BUN 17, Creatinine 0.98, Glucose 105, Total Bilirubin 0.3, AST 16, ALT 21, Alkaline Phosphatase 77, Lipase 90 Assessment and Plan - Problems (Diagnosis) (1) Small bowel obstruction Current Visit: No Status: Acute Plan: NGT WITH LIS. SHE SHOULD IMPROVE IN COUPLE OF DAYS. WATCH LAB, DVT PX. - Advance Directives Does patient have a Living Will: No Does patient have a Durable POA for Healthcare: No
[2020-07-25 14:16] LABS: MPV 8.7 fL (7.6-11.3)
[2020-07-25 14:42] LABS: Platelet Estimate ADEQ
[2020-07-26] MEDS: D5 0.45 NS 1,000 ML IV SCH ×3 (03:10→22:12)
--- NOTE | 2020-07-26 12:48 | P.PN ---
Subjective Date of Service: 07/26/20 Chief Complaint: BOWEL OBSTRUCTION Subjective: Improving SHE IS PASSING GAS BUT NO BM YET. Review of Systems 10-point ROS is otherwise unremarkable General: Weakness, Malaise Physical Examination - Vital Signs Temperature: 97.4 F Blood Pressure: 131/60 Pulse: 74 Respirations: 16 Pulse Ox (%): 92 - Physical Exam General: Mild distress HEENT: Atraumatic, PERRLA, EOMI Neck: Supple, JVD not distended Respiratory: Clear to auscultation bilaterally, Normal air movement Cardiovascular: Regular rate/rhythm, Normal S1 S2 Gastrointestinal: Hypoactive, Non-distended Musculoskeletal: No tenderness Integumentary: No rashes Neurological: Normal speech, Normal tone, Normal affect Lymphatics: No axilla or inguinal lymphadenopathy - Studies Medications List Reviewed: Yes Assessment And Plan - Current Problems (Diagnosis) (1) Small bowel obstruction Current Visit: No Status: Acute Plan: NGT WITH LIS. SHE SHOULD IMPROVE IN COUPLE OF DAYS. WATCH LAB, DVT PX. SHOULD OPEN UP IN A COUPLE OF DAYS. (2) History of asthma Current Visit: Yes Status: Acute Plan: NEBS PRN. SOMEHOW [employer] IS NOT LETTING ME RENEW INHALER.
[2020-07-26] MEDS: ALBUTEROL 2.5 MG/3 ML NEB SOL NEB SCH ×2 (14:30→19:45)
[2020-07-27] MEDS: ALBUTEROL 2.5 MG/3 ML NEB SOL NEB SCH ×4 (02:38→20:50)
[2020-07-27 05:56] LABS: Absolute Lymphocytes (CBC) 0.9 K/uL (0.7-4.9); Basophils % 0.7 % (0-1.3); Hematocrit 35.5 % (36.0-45.0); Lymphocytes % 10.8 % (15.3-44.8); MPV 9.4 fL (7.6-11.3); RBC Red Blood Cell Count 3.99 M/uL (3.86-4.86)
[2020-07-27] MEDS: D5 0.45 NS 1,000 ML IV SCH ×4 (06:00→23:52)
[2020-07-27] MEDS: LIOTHYRONINE SOD 5 MCG TAB PO SCH (08:58)
[2020-07-27] MEDS: LEVOTHYROXINE SOD 0.112 MG TAB PO SCH (08:58)
--- NOTE | 2020-07-27 10:40 | RAD REPORT ---
EXAM DESCRIPTION: RAD - Abdomen W Erect - 07/27/2020 10:26 am CLINICAL HISTORY: Abdominal pain FINDINGS: Nasogastric tube is coiled within the gastric fundus. Free air is not seen beneath the diaphragm. Dilatation of the small bowel has diminished. The visualized air-filled small bowel is normal caliber
--- NOTE | 2020-07-27 18:05 | P.PN ---
Subjective Date of Service: 07/27/20 Chief Complaint: BOWEL OBSTRUCTION Subjective: Improving SHE IS PASSING GAS BUT NO BM YET. PASSING GAS. NO BM YET. Review of Systems 10-point ROS is otherwise unremarkable General: Weakness Physical Examination - Vital Signs Temperature: 98.1 F Blood Pressure: 129/59 Pulse: 85 Respirations: 18 Pulse Ox (%): 90 - Physical Exam General: Other (NGT SUCTION.) HEENT: Atraumatic, PERRLA, EOMI Neck: Supple, JVD not distended Respiratory: Clear to auscultation bilaterally, Normal air movement Cardiovascular: Regular rate/rhythm, Normal S1 S2 Gastrointestinal: Normal bowel sounds, No tenderness Musculoskeletal: No tenderness Integumentary: No rashes Neurological: Normal speech, Normal tone, Normal affect Lymphatics: No axilla or inguinal lymphadenopathy - Studies Microbiology Data (last 24 hrs): 07/24/20 02:50 Nasopharnyx Coronavirus COVID-19 PCR - Final Medications List Reviewed: Yes Assessment And Plan - Current Problems (Diagnosis) (1) Small bowel obstruction Current Visit: No Status: Acute Plan: NGT WITH LIS. SHE SHOULD IMPROVE IN COUPLE OF DAYS. WATCH LAB, DVT PX. SHOULD OPEN UP IN A COUPLE OF DAYS. NGT SUCTION REDO X RAY. (2) History of asthma Current Visit: Yes Status: Acute Plan: NEBS PRN. SOMEHOW [employer] IS NOT LETTING ME RENEW INHALER.
[2020-07-28] MEDS: ALBUTEROL 2.5 MG/3 ML NEB SOL NEB SCH ×4 (02:45→20:05)
[2020-07-28] MEDS: D5 0.45 NS 1,000 ML IV SCH ×2 (05:48→17:15)
[2020-07-28 07:00] LABS: Absolute Lymphocytes (CBC) 0.9 K/uL (0.7-4.9); Basophils % 0.4 % (0-1.3); Hematocrit 37.5 % (36.0-45.0); Lymphocytes % 9.7 % (15.3-44.8); MPV 8.8 fL (7.6-11.3); RBC Red Blood Cell Count 4.26 M/uL (3.86-4.86)
[2020-07-28 07:17] LABS: Potassium 3.2 mmol/L (3.5-5.1)
[2020-07-28] MEDS: LEVOTHYROXINE SOD 0.112 MG TAB PO SCH (08:30)
[2020-07-28] MEDS: LIOTHYRONINE SOD 5 MCG TAB PO SCH (08:30)
[2020-07-28 14:28] LABS: MPV 8.9 fL (7.6-11.3)
--- NOTE | 2020-07-28 14:35 | PN ---
Date of Progress Note: 07/28/2020 Diagnosis: Small bowel obstruction. Subjective: The patient is feeling better, having bowel movement, passing flatus. Abdomen is less t augusta too. She has no nausea, no vomiting today. Review of Systems: Ten points otherwise unremarkable. Objective: Chest: Clear. Abdomen: Soft and depressible. No guarding or rebound. Extremities: Good capillary refill. No calf tenderness. Laboratory Data: Blood work shows decreased WBC count and x-ray shows improvement. Assessment: Small bowel obstruction. Plan: She does not want to remove the NG tube first until she tries clear liquids first, so we are g oing to try clear liquid diet. If she tolerates that, then discontinue the NG tube. Ambulation enco uraged and then we are going to advance diet slowly. If she fail to improve clinically, then she alw ays have the option of laparotomy. JULIANNA/PRABHA Voice ID: [id number] Report ID: [id number]
[2020-07-28 14:42] LABS: Platelet Estimate ADEQ
--- NOTE | 2020-07-28 20:40 | P.PN ---
Subjective Date of Service: 07/28/20 Chief Complaint: BOWEL OBSTRUCTION Subjective: Improving SHE IS PASSING GAS BUT NO BM YET. PASSING GAS. NO BM YET. STARTING TO HAVE GAS AND SOME BM NOW. Physical Examination - Vital Signs Temperature: 98.3 F Blood Pressure: 134/73 Pulse: 88 Respirations: 16 Pulse Ox (%): 91 - Physical Exam General: Alert, In no apparent distress, Other (NGT LIS) HEENT: Atraumatic, PERRLA, EOMI Neck: Supple, JVD not distended Respiratory: Clear to auscultation bilaterally, Normal air movement Cardiovascular: Regular rate/rhythm, Normal S1 S2 Gastrointestinal: Normal bowel sounds, No tenderness Musculoskeletal: No tenderness Integumentary: No rashes Neurological: Normal speech, Normal tone, Normal affect Lymphatics: No axilla or inguinal lymphadenopathy - Studies Medications List Reviewed: Yes Assessment And Plan - Current Problems (Diagnosis) (1) Small bowel obstruction Current Visit: No Status: Acute Plan: NGT WITH LIS. SHE SHOULD IMPROVE IN COUPLE OF DAYS. WATCH LAB, DVT PX. SHOULD OPEN UP IN A COUPLE OF DAYS. NGT SUCTION REDO X RAY. GRADUALLY IMPROVING (2) History of asthma Current Visit: Yes Status: Acute Plan: NEBS PRN. SOMEHOW [facility] IS NOT LETTING ME RENEW INHALER.
[2020-07-29] MEDS: ALBUTEROL 2.5 MG/3 ML NEB SOL NEB SCH ×2 (01:05→07:56)
[2020-07-29] MEDS: D5 0.45 NS 1,000 ML IV SCH (06:18)
[2020-07-29] MEDS: LEVOTHYROXINE SOD 0.112 MG TAB PO SCH (08:08)
[2020-07-29] MEDS: LIOTHYRONINE SOD 5 MCG TAB PO SCH (08:08)
[2020-07-29 08:13] VITALS: O2SAT 92
[2020-07-29 08:40] VITALS: BP 117/61; TEMP 97.4
--- NOTE | 2020-07-29 09:42 | PN ---
Date of Progress Note: 07/29/2020 Diagnosis: Small bowel obstruction. Subjective: The patient is doing better. No shortness of breath. No chest pain. No fever. No aileen sea, no vomiting. Passing flatus and having bowel movement. Review of Systems: Ten points otherwise unremarkable. Physical Examination: General: Patient is awake and alert. Abdomen: Soft and depressible. No guarding. No rebound. Extremities: Full range of motion. Laboratory Data: Blood work shows WBC count of 9.1. Plan: The patient is tolerating a full liquid diet right now, and she normally at home has blenderiz ed diet. I agree with Dr. Suarez. If patient tolerates diet, she will be able to go home in a blend erized diet. She understands the options as we discussed today for the last half an hour options of laparotomy, but she also has to understand that the adhesions may also come back or go and worsen wha t it is right now and she has to understand that this does not save her from previous surgeries in th e future. She understood. She want to continue with conservative treatment and we will see the josephine ent in 1 week in my office. JULIANNA/PRABHA Voice ID: [id number] Report ID: [id number]
--- NOTE | 2020-07-29 21:04 | P.DS ---
Admission Date: 07/24/20 Discharge Date: 07/29/20 Disposition: ROUTINE DISCHARGE Reason for Admission: BOWEL OBSTRUCTION - Problems (1) Small bowel obstruction Status: Acute (2) History of asthma Status: Acute Brief History of Present Illness: MS LAU HAS HAD MANY SURGERIES IN ABDOMEN AND HAS HAD RECURRENT SMALL BOWEL OBSTRUCTION. SHE WAS FOLLOWING [facility] LIKE GRINDING ALL THE FOOD BEFORE SHE WILL CONSUME. SHE COMES WITH ABDOMEN PAIN AND VOMITING FOR A DAY. SHE ALREADY PASSED SOME GAS YESTERDAY. Hospital Course: MRS. LAU HAS DONE BETTER WITH NGT AND SUCTION FOR BOWEL OBSTRUCTION. SHE HAS BEEN ABLE TO PASS BM NOW TODAY. TOLERATED FOOD AND WAS DISCHARGED HOME. Vital Signs/Physical Exam: Temp Pulse Resp BP Pulse Ox 97.4 F 70 16 117/61 94 07/29/20 08:00 07/29/20 08:00 07/29/20 08:00 07/29/20 08:00 07/29/20 08:00 Laboratory Data at Discharge: WBC 9.1 K/uL (4.3-10.9) D 07/28/20 06:35 Hgb 12.9 g/dL (12.0-15.0) 07/28/20 06:35 Hct 37.5 % (36.0-45.0) 07/28/20 06:35 Plt Count 238 K/uL (152-406) 07/28/20 13:48 Sodium 141 mmol/L (136-145) 07/28/20 06:35 Potassium 3.2 mmol/L (3.5-5.1) L 07/28/20 06:35 BUN 4 mg/dL (7-18) L 07/28/20 06:35 Creatinine 0.67 mg/dL (0.55-1.3) 07/28/20 06:35 Glucose 108 mg/dL (74-106) H 07/28/20 06:35 Total Bilirubin 0.4 mg/dL (0.2-1.0) 07/25/20 05:12 AST 17 U/L (15-37) 07/25/20 05:12 ALT 18 U/L (12-78) 07/25/20 05:12 Alkaline Phosphatase 62 U/L (45-117) 07/25/20 05:12 Lipase 110 U/L (73-393) 07/25/20 05:12 Home Medications: Albuterol Sulfate [Ventolin Hfa] 2 puff IN Q4H PRN 07/24/20 Alendronate Sodium [Fosamax] 70 mg PO Q7D 07/24/20 Atorvastatin Calcium [Lipitor*] 20 mg PO DAILY 07/24/20 Levothyroxine Sodium [Euthyrox] 1 tab PO DAILY 07/24/20 Levothyroxine [Synthroid*] 1 tab PO DAILY 07/24/20 Liothyronine Sodium [Cytomel] 1 tab PO DAILY 07/24/20 Followup: Drew Parmar MD [Primary Care Provider] - John Rosado MD [ACTIVE - CAN ADMIT] -
== END 2020-07-29 10:17 | disposition home or self-care (01) | DRG 390 ==
LOC: ER 17:32 → ERHOLD 21:31 → 2ND 22:14
PROVIDERS: ADMIT Internal Medicine; ATTEND Internal Medicine
DX: K56.609 Unspecified intestinal obstruction, unspecified as to partial versus complete obstruction (principal); J44.9 Chronic obstructive pulmonary disease, unspecified; E03.9 Hypothyroidism, unspecified; Z79.890 Hormone replacement therapy; Z79.899 Other long term (current) drug therapy; Z87.891 Personal history of nicotine dependence; Z90.49 Acquired absence of other specified parts of digestive tract; Z88.0 Allergy status to penicillin; Z20.828 Contact with and (suspected) exposure to other viral communicable diseases
CPT/HCPCS: 36415; 74019; 74177; 80048; 80076; 83690; 85025; 85049; 94640; 99285; J2270; J2405; J2550; J7040; J7799; Q9967; U0002

== ENCOUNTER 2020-08-14 18:11 | Inpatient (IN) | payer OTHER, BC ==
--- OUTSIDE RECORDS SUMMARY | 2020-08-14 18:12 | XMS REPORT | Clinical Summary ---
:1950 Author Organization [facility] Address [address] [place] [address] Care Team Providers Name Role Phone Paulette [...] EGD; Surgeon: Jennifer Ro MD; Loc ation: [facility]; Service: Gastroenterology ; Laterality: N/A; APPENDECTOMY 09/18/1961 - 09/17/1962 COLONOSCOPY 09/18/2013 - 09/17/2014 LARYNGOSCOPY, DIRECT 10/08/2018 Throat/N/A Procedure: MICRO LARYNGOSCOPY W/ GEL INFECTION, LARYNGOPLASTY, S TEROID INJECTION,; Thomas geon: Pema Wilson MD; Location: [facility] 18 OR; Service: EN [...] VACCINE 04/18/2020 05/28/2018 Implants Implanted Type Area Social Service Assistant Device Shelf Model / Identifier Expiration Serial / Date Lot Implant Injctbl Radiesse Voicegel 1cc - [id number] Surgical Bilateral [employer] 07/21/2020 [id number] / Implanted: Qty: 1 on 10/08/2018 by Pema Wilson MD at [facility] Implants; : Throat / Expanders; [id number] Extenders; Surgical Wires Results Not on fileafter 08/14/2019 Insurance Payer Benefit Plan / Subscriber ID Effective Dates Phone Addre ss Type Group BCBS BCBS CHOICE [id number] 2013-Present PPO PPO/FEDERAL EMPL PPO MEDICARE MEDICARE PART A [id number] 2013-Present [place] AND B Advance Directives For more information, please contact: [phone] Type Date Recorded 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
--- OUTSIDE RECORDS SUMMARY | 2020-08-14 18:13 | XMS REPORT | Continuity of Care Document ---
:1950 Author Organization [facility] t Address [address] [place] [address] Care Team Providers Name Role Phone Bill [...] Source Natural brother Kidney disease [place] [employer] Natural father Kidney disease [place] [employer] Natural mother Cancer [facility] Social History Social Habit Start Date Stop Date Quantity Comments Source Sex Assigned At [facility] ethodi Cigarettes smoked 2019-01-31 2019-01-31 [place] [employer] current (pack per 00:00:00 00:00:00 day) - Reported Tobacco use and 2019-01-31 2019-01-31 Never used [facility] ethodist exposure 00:00:00 00:00:00 Alcohol intake 2019-01-31 2019-01-31 Current drinker [place] [employer] 00:00:00 00:00:00 of alcohol (finding) History of tobacco 1969-08-24 2008-09-24 Current smoker [facility] [employer] use 00:00:00 00:00:00 Smoking Status Start Date [...] Future Scheduled 1998 COLONOSCOPY SCREENING [place] [employer] Test 00:00:00 [code = COLONOSCOPY SCREENING] Future Scheduled 1998 SHINGLES VACCINES (#1) [place] [employer] Test 00:00:00 [code = SHINGLES VACCINES (#1)] Encounters Start End Encounter Admission Attending Care Care Encounter Source Date/Time Date/Time Type Type Clinicians Facility Department ID 2019-12-03 2019-12-03 [id number] 00:00:00 00:00:00 [place] [id number] [place] [id number] Professio [phone] nal 220 Building 2019-11-12 2019-11-12 Office [facility] [id number] 09:00:28 09:41:00 Visit [facility] [id number] [place] [phone] [facility] Results This patient has no known results.
[2020-08-14] MEDS ORDERED: NA CHLORIDE 0.9% 1,000 ML ONE ×2 (19:25→21:00)
[2020-08-14] MEDS ORDERED: ONDANSETRON 4 MG/2 ML VIAL ONE (19:25)
[2020-08-14] MEDS ORDERED: MORPHINE 4 MG/ML SYR ONE ×2 (19:28→23:03)
[2020-08-14 19:30] LABS: Absolute Lymphocytes (CBC) 0.7 K/uL (0.7-4.9); Basophils % 0.2 % (0-1.3); Hematocrit 44.5 % (36.0-45.0); Lymphocytes % 4.5 % (15.3-44.8); MPV 9.2 fL (7.6-11.3); RBC Red Blood Cell Count 5.05 M/uL (3.86-4.86)
[2020-08-14 19:32] LABS: Bilirubin Direct 0.1 mg/dL (0-0.2); Bilirubin Total 0.5 mg/dL (0.2-1.0); Potassium 3.8 mmol/L (3.5-5.1); Protein, Total 8.7 g/dL (6.4-8.2)
--- NOTE | 2020-08-14 20:16 | RAD REPORT ---
EXAM DESCRIPTION: CT - Abdomen Pelvis W Contrast - 08/14/2020 7:59 pm CLINICAL HISTORY: Abdominal pain COMPARISON: July 24, 2020 TECHNIQUE: Computed axial tomography of the abdomen pelvis was obtained. 100 cc Isovue-300 was admin istered intravenously. Oral contrast was not requested which limits evaluation of bowel. All CT scans are performed using dose optimization technique as appropriate and may include automated exposure control or mA/KV adjustment according to patient size. FINDINGS: Hepatic cysts The spleen, pancreas and adrenals unremarkable Renal cysts. Right renal cortical thinning probably secondary to prior inflammation. Small nonobstruc ting right renal calculus Gallstones without gallbladder wall thickening Fluid is present throughout jejunum and ileum. A couple of loops of jejunum are borderline dilated. T he remainder of the jejunum and ileum are normal caliber. There is no evidence of diverticulitis. IMPRESSION: The small bowel findings are more characteristic of an enteritis. A mild partial obstruc tion is probably less likely. If the patient's symptoms do not resolve then followup abdominal plain film series would be recommended
--- NOTE | 2020-08-14 20:39 | EDPHYS ---
Physician Documentation [facility] Name: Korina Flores Age: 69 yrs Sex: Female : 1950 Arrival Date: 08/14/2020 Time: 18:12 Bed 7 Private MD: Drew Parmar V ED Physician HPI: 08/14 20:40 This 69 yrs old Female presents to ER via Ambulatory with complaints of kb Abdominal Pain. 20:40 The patient presents with abdominal pain. The symptoms do not radiate. kb 20:40 Onset: The symptoms/episode began/occurred this morning. Associated signs and symptoms: kb Pertinent positives: nausea and vomiting, Pertinent negatives: constipation, diarrhea, fever. The symptoms are described as constant. Modifying factors: The symptoms are alleviated by nothing, the symptoms are aggravated by nothing. Severity of pain: At its worst the pain was moderate in the emergency department the pain is unchanged. The patient has experienced similar episodes in the past, several times. The patient has not recently seen a physician. Historical: - Allergies: 18:24 PENICILLINS; em - PMHx: 18:24 Asthma; COPD; Hypothyroidism; em - PSHx: 18:24 Appendectomy; Abdominal Surgeries for the blockage x 3; em - Immunization history:: Adult Immunizations up to date. - Social history:: Smoking status: Patient denies any tobacco usage or history of. ROS: 20:39 Constitutional: Negative for fever, chills, and weight loss, Cardiovascular: Negative kb for chest pain, palpitations, and edema, Respiratory: Negative for shortness of breath, cough, wheezing, and pleuritic chest pain, Back: Negative for injury and pain, MS/Extremity: Negative for injury and deformity, Skin: Negative for injury, rash, and discoloration, Neuro: Negative for headache, weakness, numbness, tingling, and seizure. 20:39 Abdomen/GI: Positive for abdominal pain, nausea and vomiting, Negative for diarrhea, constipation. Exam: 20:39 Constitutional: This is a well developed, well nourished patient who is awake, alert, kb and in no acute distress. Head/Face: Normocephalic, atraumatic. Chest/axilla: Normal chest wall appearance and motion. Nontender with no deformity. No lesions are appreciated. Cardiovascular: Regular rate and rhythm with a normal S1 and S2. No gallops, murmurs, or rubs. Normal PMI, no JVD. No pulse deficits. Respiratory: Lungs have equal breath sounds bilaterally, clear to auscultation and percussion. No rales, rhonchi or wheezes noted. No increased work of breathing, no retractions or nasal flaring. Skin: Warm, dry with normal turgor. Normal color with no rashes, no lesions, and no evidence of cellulitis. MS/ Extremity: Pulses equal, no cyanosis. Neurovascular intact. Full, normal range of motion. Neuro: Awake and alert, GCS 15, oriented to person, place, time, and situation. Cranial nerves II-XII grossly intact. Motor strength 5/5 in all extremities. Sensory grossly intact. Cerebellar exam normal. Normal gait. 20:39 Abdomen/GI: Inspection: abdomen appears normal, Bowel sounds: normal, in all quadrants, Palpation: soft, in all quadrants, moderate abdominal tenderness, in all quadrants. Vital Signs: 18:21 BP 126 / 76; Pulse 113; Resp 20; Temp 98.2(O); Pulse Ox 94% on R/A; Weight 63.5 kg; em Height 5 ft. 4 in. (162.56 cm); Pain 9/10; 19:24 BP 128 / 73; Pulse 93; Resp 18; Pulse Ox 92% on R/A; ll1 20:00 BP 112 / 64; Pulse 84; Resp 18; Pulse Ox 91% on R/A; ll1 20:26 BP 110 / 58; Pulse 85; Resp 18; Pulse Ox 92% on R/A; ll1 22:40 BP 107 / 68; Pulse 77; Resp 16; Temp 98; Pulse Ox 98% on 2 lpm NC; rv 18:21 Body Mass Index 24.03 (63.50 kg, 162.56 cm) em 18:21 reports using O2 at night em MDM: 18:45 Patient medically screened. kb 20:38 Data reviewed: vital signs, nurses notes. Data interpreted: Pulse oximetry: on room air kb is 92 %. Interpretation: pt reports this is normal for her. Counseling: I had a detailed discussion with the patient and/or guardian regarding: the historical points, exam findings, and any diagnostic results supporting the discharge/admit diagnosis, lab results, radiology results, the need for further work-up and treatment in the hospital. Physician consultation: John Rosado MD was contacted at 20:38, regarding consult, patient's condition, and will see patient in inpatient room. 20:39 Physician consultation: Drew Parmar MD was contacted at 20:39, regarding admission, to the medical/surgical unit. patient's condition, and will see patient in inpatient room. 08/14 18:51 Order name: Basic Metabolic Panel; Complete Time: 19:35 kb 08/14 18:51 Order name: CBC with Diff; Complete Time: 21:30 kb 08/14 18:51 Order name: Hepatic Function; Complete Time: 19:35 kb 08/14 18:51 Order name: Lipase; Complete Time: 19:35 kb 08/14 18:51 Order name: CT Abd/Pelvis - IV Contrast Only; Complete Time: 20:26 kb 08/14 21:30 Order name: Manual Differential; Complete Time: 21:30 EDMS 08/14 18:51 Order name: IV Saline Lock; Complete Time: 18:54 kb 08/14 18:51 Order name: Labs collected and sent; Complete Time: 18:54 kb 08/14 20:35 Order name: NG Tube; Complete Time: 21:25 kb Administered Medications: 19:23 Drug: NS 0.9% 500 ml Route: IV; Rate: bolus; Site: left antecubital; ll1 20:25 Follow up: Response: No adverse reaction; RASS: Alert and Calm (0); IV Status: ll1 Completed infusion; IV Intake: 500ml 19:23 Drug: Zofran (Ondansetron) 4 mg Route: IVP; Site: left antecubital; ll1 20:25 Follow up: Response: No adverse reaction; RASS: Alert and Calm (0) ll1 19:25 Drug: morphine 4 mg Route: IVP; Site: left antecubital; ll1 20:26 Follow up: Response: No adverse reaction; RASS: Alert and Calm (0) ll1 20:58 Drug: NS 0.9% 1000 ml Route: IV; Rate: 100 ml/hr; Site: left antecubital; rv 22:37 Follow up: IV Status: Infusion continued upon admission rv 20:59 Drug: Flagyl 500 mg Volume: 100 ml; Route: IVPB; Rate: 200 ml/hr; Infused Over: 30 rv mins; Site: left antecubital; 21:26 Follow up: IV Status: Completed infusion; IV Intake: 100ml rv 21:26 Drug: Cipro 400 mg Volume: 200 ml; Route: IVPB; Infused Over: 60 mins; Site: left rv antecubital; 22:37 Follow up: IV Status: Completed infusion; IV Intake: 200ml rv 22:50 Drug: morphine 4 mg {Note: RASS 0.} Route: IVP; Site: left antecubital; rv 23:17 Follow up: Response: Medication administered at discharge. rv Disposition: 08/14/20 20:37 Hospitalization ordered by Drew Parmar for Observation. Preliminary diagnosis are Generalized abdominal pain - enteritis vs obstruction, Elevated white blood cell count, Bandemia. - Bed requested for Telemetry/MedSurg (observation). - Status is Observation. rv - Condition is Stable. - Problem is new. - Symptoms are unchanged. Addendum: 08/18/2020 03:34 Co-signature as Attending Physician, Alonso Angulo MD I agree with the assessment m a2 and plan of care. Signatures: Dispatcher [employer] EDCA Simi Linares, EVARISTO-C GAMING CAGE WORKER-Kathi Villatoro RN RN Pranav Parisi, RN JANINE Alonso Angulo MD MD ma2 Jn Orellana, RN RN Doug Swartz RN RN ll1 Corrections: (The following items were deleted from the chart) 08/14 20:39 20:38 Data interpreted: Pulse oximetry: on room air is 92 %. Interpretation: kb borderline. kb 21:13 20:37 Hospitalization Ordered by Drew Parmar MD for Observation. Preliminary diagnosis kb is Generalized abdominal pain - enteritis vs obstruction. Bed requested for Telemetry/MedSurg (observation). Status is Observation. Condition is Stable. Problem is new. Symptoms are unchanged. kb 21:26 21:13 08/14/2020 20:37 Hospitalization Ordered by Drew Parmar MD for Observation. mw Preliminary diagnosis is Generalized abdominal pain - enteritis vs obstruction; Elevated white blood cell count. Bed requested for Telemetry/MedSurg (observation). Status is Observation. Condition is Stable. Problem is new. Symptoms are unchanged. kb 21:31 21:26 08/14/2020 20:37 Hospitalization Ordered by Drew Parmar MD for Observation. kb Preliminary diagnosis is Generalized abdominal pain - enteritis vs obstruction; Elevated white blood cell count. Bed requested for Telemetry/MedSurg (observation). Status is Observation. Condition is Stable. Problem is new. Symptoms are unchanged. mw 22:42 21:31 08/14/2020 20:37 Hospitalization Ordered by Drew Parmar MD for Observation. rv Preliminary diagnosis is Generalized abdominal pain - enteritis vs obstruction; Elevated white blood cell count; Bandemia. Bed requested for Telemetry/MedSurg (observation). Status is Observation. Condition is Stable. Problem is new. Symptoms are unchanged. kb 23:18 22:42 08/14/2020 20:37 Hospitalization Ordered by Drew Parmar MD for Observation. rv Preliminary diagnosis is Generalized abdominal pain - enteritis vs obstruction; Elevated white blood cell count; Bandemia. Bed requested for Telemetry/MedSurg (observation). Status is Observation. Condition is Stable. Problem is new. Symptoms are unchanged. rv
[2020-08-14] MEDS ORDERED: CIPROFLOXACIN 400mg IV 400 MG/200 ML BAG IV ONE (21:00)
[2020-08-14] MEDS ORDERED: METRONIDAZOLE 500mg IVPB 500 MG/100 ML BAG IV ONE (21:00)
[2020-08-14 21:29] LABS: Blood Morphology Comment NOT SEEN (NOT SEEN); Platelet Estimate ADEQ
--- NOTE | 2020-08-14 22:43 | ER ---
Nurse's Notes [facility] Name: Korina Flores Age: 69 yrs Sex: Female : 1950 Arrival Date: 08/14/2020 Time: 18:12 Bed 7 Private MD: rDew Parmar V Diagnosis: Generalized abdominal pain-enteritis vs obstruction;Elevated white blood cell count;Bandemia Presentation: 08/14 18:21 Chief complaint: Patient states: reports bowel bowel blockage, had similar episode 3 em weeks ago and was admitted to the hospital, reports abd pain and N/V, denies fever. Coronavirus screen: Client denies travel out of the [place] in the last 14 days. Ebola Screen: Patient negative for fever greater than or equal to 101.5 degrees Fahrenheit, and additional compatible Ebola Virus Disease symptoms Patient denies exposure to infectious person. Patient denies travel to an Ebola-affected area in the 21 days before illness onset. No symptoms or risks identified at this time. Initial Sepsis Screen: Does the patient meet any 2 criteria? Does the patient have a suspected source of infection? No. Patient's initial sepsis screen is negative. Risk Assessment: Do you want to hurt yourself or someone else? Patient reports no desire to harm self or others. Onset of symptoms. 18:21 Method Of Arrival: Ambulatory em 18:21 Acuity: SARY 3 em Historical: - Allergies: 18:24 PENICILLINS; em - PMHx: 18:24 Asthma; COPD; Hypothyroidism; em - PSHx: 18:24 Appendectomy; Abdominal Surgeries for the blockage x 3; em - Immunization history:: Adult Immunizations up to date. - Social history:: Smoking status: Patient denies any tobacco usage or history of. Screenin:31 Abuse screen: Denies threats or abuse. Denies injuries from another. Nutritional ec1 screening:. Fall Risk No fall in past 12 months (0 pts). Secondary diagnosis (15 points) No IV (0 pts). Ambulatory Aid- None/Bed Rest/Nurse Assist (0 pts). Gait- Weak (10 pts.). Mental Status- Oriented to own ability (0 pts). Total Galvez Fall Scale indicates Low Risk Score (25-44 pts). 18:35 Tuberculosis screening: No symptoms or risk factors identified. ec1 Assessment: 18:31 General: Appears uncomfortable, Behavior is cooperative. Pain: Complains of pain in ec1 abdomen. Neuro: Level of Consciousness is awake, alert, obeys commands. Cardiovascular: Patient's skin is warm and dry. Respiratory: Airway is patent Respiratory effort is even, unlabored. GI: Abdomen is round old surgical scars noted Bowel sounds present X 4 quads. Abd is soft X 4 quads Abdomen is tender to palpation X 4 quads. Reports lower abdominal pain, upper abdominal pain, diarrhea, nausea, vomiting, last BM and vomiting today. : No deficits noted. EENT: No deficits noted. Derm: No deficits noted. Musculoskeletal: No deficits noted. 19:25 Reassessment: Patient and/or family updated on plan of care and expected duration. Pain ll1 level reassessed. Patient is alert, oriented x 3, equal unlabored respirations, skin warm/dry/pink. 20:25 Reassessment: Patient and/or family updated on plan of care and expected duration. Pain ll1 level reassessed. Patient is alert, oriented x 3, equal unlabored respirations, skin warm/dry/pink. Vital Signs: 18:21 BP 126 / 76; Pulse 113; Resp 20; Temp 98.2(O); Pulse Ox 94% on R/A; Weight 63.5 kg; em Height 5 ft. 4 in. (162.56 cm); Pain 9/10; 19:24 BP 128 / 73; Pulse 93; Resp 18; Pulse Ox 92% on R/A; ll1 20:00 BP 112 / 64; Pulse 84; Resp 18; Pulse Ox 91% on R/A; ll1 20:26 BP 110 / 58; Pulse 85; Resp 18; Pulse Ox 92% on R/A; ll1 22:40 BP 107 / 68; Pulse 77; Resp 16; Temp 98; Pulse Ox 98% on 2 lpm NC; rv 18:21 Body Mass Index 24.03 (63.50 kg, 162.56 cm) em 18:21 reports using O2 at night em ED Course: 18:12 Patient arrived in ED. as 18:12 Drew Parmar MD is Private Physician. as 18:24 Triage completed. em 18:24 Arm band placed on. em 18:26 Libia Butler, RN is Primary Nurse. ec1 18:31 Patient has correct armband on for positive identification. Placed in gown. Bed in low ec1 position. Call light in reach. Side rails up X2. 18:45 Simi Linares FNP-C is [facility]. kb 18:45 Alonso Angulo MD is Attending Physician. kb 18:45 Inserted saline lock: 22 gauge in left antecubital area, using aseptic technique. Blood ll1 collected. 18:56 Doug Swartz, RN is Primary Nurse. ll1 19:58 CT completed. Patient tolerated procedure well. Patient moved back from CT. mw3 19:59 CT Abd/Pelvis - IV Contrast Only In Process Unspecified. EDMS 20:37 Drew Parmar MD is Hospitalizing Provider. kb 21:24 NGT: inserted 14 Fr. via right nare. verified placement of air over stomach, verified rv return of gastric contents, to intermittent suction. Returned gastric contents. Returned bile. Patient tolerated well. 22:41 No provider procedures requiring assistance completed. IV is patent, with fluids rv infusing freely, Patient admitted, IV remains in place. 23:16 Attending Physician role handed off by Alonso Angulo MD rv 23:16 Primary Nurse role handed off by Doug Swartz, JANINE rv Administered Medications: 19:23 Drug: NS 0.9% 500 ml Route: IV; Rate: bolus; Site: left antecubital; ll1 20:25 Follow up: Response: No adverse reaction; RASS: Alert and Calm (0); IV Status: ll1 Completed infusion; IV Intake: 500ml 19:23 Drug: Zofran (Ondansetron) 4 mg Route: IVP; Site: left antecubital; ll1 20:25 Follow up: Response: No adverse reaction; RASS: Alert and Calm (0) ll1 19:25 Drug: morphine 4 mg Route: IVP; Site: left antecubital; ll1 20:26 Follow up: Response: No adverse reaction; RASS: Alert and Calm (0) ll1 20:58 Drug: NS 0.9% 1000 ml Route: IV; Rate: 100 ml/hr; Site: left antecubital; rv 22:37 Follow up: IV Status: Infusion continued upon admission rv 20:59 Drug: Flagyl 500 mg Volume: 100 ml; Route: IVPB; Rate: 200 ml/hr; Infused Over: 30 rv mins; Site: left antecubital; 21:26 Follow up: IV Status: Completed infusion; IV Intake: 100ml rv 21:26 Drug: Cipro 400 mg Volume: 200 ml; Route: IVPB; Infused Over: 60 mins; Site: left rv antecubital; 22:37 Follow up: IV Status: Completed infusion; IV Intake: 200ml rv 22:50 Drug: morphine 4 mg {Note: RASS 0.} Route: IVP; Site: left antecubital; rv 23:17 Follow up: Response: Medication administered at discharge. rv Intake: 20:25 IV: 500ml; Total: 500ml. ll1 21:26 IV: 100ml; Total: 600ml. rv 22:37 IV: 200ml; Total: 800ml. rv Outcome: 20:37 Decision to Hospitalize by Provider. kb 22:41 Admitted to Med/surg accompanied by tech, via stretcher, room 228, Other sbar Report rv called to SONJA MEHTA 22:41 Condition: good 22:41 Instructed on the need for admit. 22:42 Patient left the ED. rv 23:18 Patient left the ED. rv Signatures: Dispatcher [employer] Simi Olivas, MANAGER UROLOGY-C MANAGER UROLOGY-Ckb Pranav Parisi, RN RN Brinda Ayala Michelle mw3 Jn Orellana, RN RN Doug Portillo, JANINE RN ll1 Libia Butler, RN RN ec1
[2020-08-14] MEDS ORDERED: MORPHINE 4 MG/ML SYR IV PRN (23:36)
[2020-08-14] MEDS ORDERED: ONDANSETRON 4 MG/2 ML VIAL IV PRN (23:36)
[2020-08-14] MEDS ORDERED: CIPROFLOXACIN 400mg IV 400 MG/200 ML BAG IV SCH (23:36)
[2020-08-14 23:47] VITALS: BMI 25.0
[2020-08-15] MEDS: NA CHLORIDE 0.9% 1,000 ML IV SCH ×4 (00:06→21:04)
[2020-08-15] MEDS ORDERED: METRONIDAZOLE 500mg IVPB 500 MG/100 ML BAG IV SCH (01:00)
[2020-08-15] MEDS: METRONIDAZOLE 500mg IVPB 500 MG/100 ML BAG IV SCH ×3 (05:01→21:04)
[2020-08-15 06:05] LABS: Absolute Lymphocytes (CBC) 0.8 K/uL (0.7-4.9); Basophils % 0.3 % (0-1.3); Hematocrit 35.9 % (36.0-45.0); Lymphocytes % 10.1 % (15.3-44.8); MPV 9.6 fL (7.6-11.3)
[2020-08-15 06:33] LABS: Potassium 4.1 mmol/L (3.5-5.1)
[2020-08-15] MEDS: CIPROFLOXACIN 400mg IV 400 MG/200 ML BAG IV SCH ×2 (08:23→21:04)
--- NOTE | 2020-08-15 15:18 | P.HP ---
Certification for Inpatient Patient admitted to: Inpatient With expected LOS: >2 Midnights Practitioner: I am a practitioner with admitting privileges, knowledge of patient current condition, hospital course, and medical plan of care. Services: Services provided to patient in accordance with Admission requirements found in Title 42 Section 412.3 of the Code of Federal Regulations Patient History Date of Service: 08/15/20 Reason for admission: ABDOMEN CRAMPING History of Present Illness: MS LAU IS A WELL KNOWN PATIENT WITH RECURRENT BOWEL OBSTRUCTION. SHE IS DOING ALL THAT SHE IS SUPPOSED TO. SHE IS GRINDING ALL HER FOOD IN TO PUREE BEFORE SHE EATS IT. SHE HAS SEVERE ADHESIONS WITH MULTIPLE HERNIA OF ABDOMEN WALL. ER PA CALLED ME AND I ASKED HER TO INSERT NGT SHE WILL NOT IMPROVE ON HER OWN. Allergies Penicillins Allergy (Verified 08/14/20 23:33) Hives/Rash Home Medications: Alendronate Sodium [Fosamax] 70 mg PO Q7D 07/24/20 Atorvastatin Calcium [Lipitor*] 20 mg PO EVERY 7TH DAY 07/24/20 Levothyroxine [Synthroid*] 1 tab PO DAILY 07/24/20 Liothyronine Sodium [Cytomel] 1 tab PO DAILY 07/24/20 Docusate [Colace Cap*] 100 mg PO BID 08/14/20 Fluticasone [Flonase 50MCG Nasal [place]*] 1 spray IN BID 08/14/20 Mometasone/Formoterol [Dulera 100 Mcg-5 Mcg Inhaler] 2 inh IN BEDTIME 08/14/20 Tiotropium [place] [Spiriva Respimat] 2 in IN DAILY 08/14/20 - Past Medical/Surgical History Has patient received pneumonia vaccine in the past: Yes Diabetic: No -: COPD -: asthma -: bowel obstructions -: hypothyroid -: osteoparosis -: appendectomy -: ovary removal -: abdominal surgery due adhesions x3 - Family History Brother -: Kidney disease - Social History Smoking Status: Former smoker Alcohol use: Yes CD- Drugs: No Caffeine use: Yes Place of Residence: Home Review of Systems 10-point ROS is otherwise unremarkable Gastrointestinal: Abdominal Pain, Distention, As per HPI Physical Examination - Vital Signs Temperature: 97 F Blood Pressure: 103/56 Pulse: 63 Respirations: 18 Pulse Ox (%): 95 - Physical Exam General: Alert, Moderate distress HEENT: Atraumatic, PERRLA, Mucous membr. moist/pink, EOMI, Sclerae nonicteric Neck: Supple, 2+ carotid pulse no bruit, No LAD, Without JVD or thyroid abnormality Respiratory: Clear to auscultation bilaterally, Normal air movement Cardiovascular: Regular rate/rhythm, Normal S1 S2 Gastrointestinal: Hyperactive, Distended Musculoskeletal: No tenderness Integumentary: No rashes Neurological: Normal gait, Normal speech, Normal strength at 5/5 x4 extr, Normal tone, Normal affect Lymphatics: No axilla or inguinal lymphadenopathy - Studies Laboratory Data (last 24 hrs) 08/14/20 19:00: WBC 16.2 H, Hgb 15.3 H, Hct 44.5, Plt Count 271 08/14/20 19:00: Sodium 138, Potassium 3.8, BUN 20 H, Creatinine 1.10, Glucose 138 H, Total Bilirubin 0.5, AST 19, ALT 20, Alkaline Phosphatase 78, Lipase 91 Assessment and Plan - Problems (Diagnosis) (1) History of major abdominal surgery Current Visit: No Status: Chronic (2) Small bowel obstruction Current Visit: No Status: Chronic Plan: ACUTE OBST AGAIN. NGT WITH LIS IV FLUIDS. SHE HAS LOT OF GURGLING BUT NO BM YET. SHE SHOULD IMPROVE IN COUPLE OF DAYS, - Advance Directives Does patient have a Living Will: No Does patient have a Durable POA for Healthcare: Yes
[2020-08-15 15:21] LABS: MPV 9.3 fL (7.6-11.3)
[2020-08-15 15:24] LABS: Platelet Estimate ADEQ
[2020-08-16] MEDS: NA CHLORIDE 0.9% 1,000 ML IV SCH ×3 (05:36→21:53)
[2020-08-16] MEDS: METRONIDAZOLE 500mg IVPB 500 MG/100 ML BAG IV SCH ×3 (05:53→21:53)
[2020-08-16] MEDS: ENOXAPARIN 40 MG/0.4 ML SQ SCH (08:28)
[2020-08-16] MEDS: CIPROFLOXACIN 400mg IV 400 MG/200 ML BAG IV SCH ×2 (09:15→21:52)
--- NOTE | 2020-08-16 12:45 | PN ---
Date of Progress Note: 08/16/2020 Reason For Service: Enteritis/partial small bowel obstruction. Subjective: This is the case of a 69-year-old patient known by us due to history of bowel obstructio n. At this time looks different. She has inflammation of small bowel consistent with enteritis of u nknown origin. She has been watching what she eats, at least the consistency of it. She feels devon r today. She is passing flatus. Physical Examination: Abdomen; mild tenderness, although no peritonitis. Laboratory Data: WBC count came from 16 to 8.1 with hemoglobin of 12.3. Abdominal x-ray, official r esult is still pending. Assessment: A 69-year-old patient with history of small bowel obstruction in the past, come with ent eritis of unknown origin. She feels better today. She is on antibiotics. We are going to keep her on bowel rest tomorrow morning, most likely we are going to start a liquid diet if she continues impr oving clinically. Once again as we discussed before, surgical options are always on the table, altho ugh she improved before we have to use those options every time. JULIANNA/PRABHA Voice ID: [id number] Report ID: [id number]
--- NOTE | 2020-08-16 13:07 | RAD REPORT ---
EXAM DESCRIPTION: RAD - Abdomen W Erect - 08/16/2020 12:06 pm CLINICAL HISTORY: enteritis, SBO COMPARISON: Abdomen W Erect dated 07/27/2020; Abdomen Pelvis W Contrast dated 08/14/2020 TECHNIQUE: Supine and upright views of the abdomen were obtained. FINDINGS: Air and stool are present throughout nondilated colon down to the level of the rectum. A f ew prominent small bowel loops are present. No free air or pneumatosis. No suspicious calcifications. IMPRESSION: Few prominent small bowel loops are present. No free air, pneumatosis or other emergent finding. Bowel pattern is not substantially different from the CT study of August 14.
[2020-08-17] MEDS: NA CHLORIDE 0.9% 1,000 ML IV SCH ×3 (01:36→23:09)
[2020-08-17] MEDS: METRONIDAZOLE 500mg IVPB 500 MG/100 ML BAG IV SCH ×3 (04:15→21:00)
[2020-08-17 06:00] LABS: Absolute Lymphocytes (CBC) 1.2 K/uL (0.7-4.9); Basophils % 0.8 % (0-1.3); Hematocrit 37.9 % (36.0-45.0); MPV 9.6 fL (7.6-11.3); RBC Red Blood Cell Count 4.21 M/uL (3.86-4.86)
[2020-08-17] MEDS: CIPROFLOXACIN 400mg IV 400 MG/200 ML BAG IV SCH ×2 (08:19→20:44)
[2020-08-17] MEDS: ENOXAPARIN 40 MG/0.4 ML SQ SCH (08:19)
--- NOTE | 2020-08-17 17:41 | P.PN ---
Subjective Date of Service: 08/16/20 Chief Complaint: SHE IS PASSING GAS. Subjective: Improving NO BM YET. Physical Examination - Vital Signs Temperature: 98.0 F Blood Pressure: 138/59 Pulse: 69 Respirations: 18 Pulse Ox (%): 92 - Physical Exam General: Mild distress HEENT: Atraumatic, PERRLA, EOMI Neck: Supple, JVD not distended Respiratory: Clear to auscultation bilaterally, Normal air movement Cardiovascular: Regular rate/rhythm, Normal S1 S2 Gastrointestinal: Normal bowel sounds, No tenderness, Tenderness ( LLQ.) Musculoskeletal: No tenderness Integumentary: No rashes Neurological: Normal speech, Normal tone, Normal affect Lymphatics: No axilla or inguinal lymphadenopathy - Studies Medications List Reviewed: Yes Assessment And Plan - Current Problems (Diagnosis) (1) History of major abdominal surgery Current Visit: No Status: Chronic (2) Small bowel obstruction Current Visit: No Status: Chronic Plan: ACUTE OBST AGAIN. NGT WITH LIS IV FLUIDS. SHE HAS LOT OF GURGLING BUT NO BM YET. SHE SHOULD IMPROVE IN COUPLE OF DAYS, TENDER LLQ PASSING GAS NO BM YET.
--- NOTE | 2020-08-17 17:43 | P.PN ---
Subjective Date of Service: 08/17/20 Chief Complaint: LOTS OF GAS TODAY FROM BELOW. Subjective: Improving NO BM YET. SAME. Physical Examination - Vital Signs Temperature: 98.0 F Blood Pressure: 138/59 Pulse: 69 Respirations: 18 Pulse Ox (%): 92 - Physical Exam General: Alert, In no apparent distress HEENT: Atraumatic, PERRLA, EOMI Neck: Supple, JVD not distended Respiratory: Clear to auscultation bilaterally, Normal air movement Cardiovascular: Regular rate/rhythm, Normal S1 S2 Gastrointestinal: Normal bowel sounds, No tenderness, Tenderness (LLQ. NO REBOUND.) Musculoskeletal: No tenderness Integumentary: No rashes Neurological: Normal speech, Normal tone, Normal affect Lymphatics: No axilla or inguinal lymphadenopathy - Studies Medications List Reviewed: Yes Assessment And Plan - Current Problems (Diagnosis) (1) History of major abdominal surgery Current Visit: No Status: Chronic (2) Small bowel obstruction Current Visit: No Status: Chronic Plan: ACUTE OBST AGAIN. NGT WITH LIS IV FLUIDS. SHE HAS LOT OF GURGLING BUT NO BM YET. SHE SHOULD IMPROVE IN COUPLE OF DAYS, TENDER LLQ PASSING GAS NO BM YET. CONT NGT SHE REFUSES ENEMA FOR NOW.
[2020-08-18] MEDS: METRONIDAZOLE 500mg IVPB 500 MG/100 ML BAG IV SCH ×3 (04:23→21:18)
[2020-08-18] MEDS: NA CHLORIDE 0.9% 1,000 ML IV SCH ×3 (07:36→22:03)
[2020-08-18] MEDS: CIPROFLOXACIN 400mg IV 400 MG/200 ML BAG IV SCH ×2 (08:39→21:18)
[2020-08-18] MEDS: ENOXAPARIN 40 MG/0.4 ML SQ SCH (08:40)
--- NOTE | 2020-08-18 13:07 | P.PN ---
Subjective Date of Service: 08/18/20 Chief Complaint: LOTS OF GAS TODAY FROM BELOW. Subjective: Improving (NO BMYET.) NO BM YET. SAME. Review of Systems 10-point ROS is otherwise unremarkable General: Weakness Physical Examination - Vital Signs Temperature: 97.6 F Blood Pressure: 151/64 Pulse: 62 Respirations: 16 Pulse Ox (%): 95 - Physical Exam General: Mild distress HEENT: Atraumatic, PERRLA, EOMI Neck: Supple, JVD not distended Respiratory: Clear to auscultation bilaterally, Normal air movement Cardiovascular: Regular rate/rhythm, Normal S1 S2 Gastrointestinal: No tenderness, Hyperactive Musculoskeletal: No tenderness Integumentary: No rashes Neurological: Normal speech, Normal tone, Normal affect Lymphatics: No axilla or inguinal lymphadenopathy - Studies Medications List Reviewed: Yes Assessment And Plan - Current Problems (Diagnosis) (1) History of major abdominal surgery Current Visit: No Status: Chronic Plan: SHE HAS NOT OPENED UP YET. TALKED TO DR. MALDONADO TODAY. HE IS TRYING TO FEED HER AND SHE HOW SHE DOES. (2) Small bowel obstruction Current Visit: No Status: Chronic Plan: ACUTE OBST AGAIN. NGT WITH LIS IV FLUIDS. SHE HAS LOT OF GURGLING BUT NO BM YET. SHE SHOULD IMPROVE IN COUPLE OF DAYS, TENDER LLQ PASSING GAS NO BM YET. CONT NGT SHE REFUSES ENEMA FOR NOW.
--- NOTE | 2020-08-18 13:26 | PN ---
Date of Progress Note: 08/18/2020 Reason For Service: Enteritis, history of small bowel obstruction. Subjective: This is a case of a 69-year-old patient with history of small bowel obstruction recurren ce. Every time, she has been able to treat this conservatively. This time, she came with enteritis. The patient is doing better. No shortness of breath. No chest pain. No fever. Review of Systems: Ten points otherwise unremarkable. The patient is passing flatus and starting to pass small bowel mo vement. Objective: General: The patient is awake, alert. Chest: Clear. Abdomen: Soft and depressible. No peritonitis. Laboratory Data: The WBC count is 6.8. Plan: She is tolerating a full liquid diet. We are going to advance diet to pureed diet, that is wh at she takes at home. She was advised to follow with her supervisor ship maintenance services. This time, she came wi th enteritis, which is something new that we haven't seen in the past, few obstructions. She stated that she was tested for food allergies not too long ago by her photo booth operator. She was also seen at [address] [place] [address] with an inflammatory bowel disease, although she does not remember when she has diagnosed, but she hasn't followed up on that. She was advised to see the supervisor ship maintenance services for that. If she opens a t this time and without any obstruction gets relief, then once again, she understands the chance of r ecurrence in the future and she is waiting for that moment to sign for surgery whenever she is comple tely obstructed. Hopefully, she never get there. She was advised to follow up once again in our office when she gets discharged. JULIANNA/PRABHA Voice ID: [id number] Report ID: [id number]
[2020-08-18 14:49] LABS: MPV 9.4 fL (7.6-11.3)
[2020-08-18 15:12] LABS: Platelet Estimate ADEQ
[2020-08-19 01:05] VITALS: O2SAT 90
[2020-08-19] MEDS: NA CHLORIDE 0.9% 1,000 ML IV SCH ×2 (03:36→13:36)
[2020-08-19] MEDS: METRONIDAZOLE 500mg IVPB 500 MG/100 ML BAG IV SCH ×2 (04:48→13:04)
[2020-08-19] MEDS: ENOXAPARIN 40 MG/0.4 ML SQ SCH (09:00)
[2020-08-19] MEDS: CIPROFLOXACIN 400mg IV 400 MG/200 ML BAG IV SCH (09:30)
[2020-08-19] MEDS ORDERED: MOMETASONE IH SCH (15:45)
[2020-08-19] MEDS ORDERED: FORMOTEROL IH SCH (15:45)
[2020-08-19 16:49] VITALS: BP 124/62; TEMP 97.4
--- NOTE | 2020-08-19 18:25 | P.DS ---
Admission Date: 08/15/20 Discharge Date: 08/19/20 Disposition: ROUTINE DISCHARGE Reason for Admission: LOTS OF GAS TODAY FROM BELOW. - Problems (1) History of major abdominal surgery Status: Chronic (2) Small bowel obstruction Status: Chronic Brief History of Present Illness: MS LAU IS A WELL KNOWN PATIENT WITH RECURRENT BOWEL OBSTRUCTION. SHE IS DOING ALL THAT SHE IS SUPPOSED TO. SHE IS GRINDING ALL HER FOOD IN TO PUREE BEFORE SHE EATS IT. SHE HAS SEVERE ADHESIONS WITH MULTIPLE HERNIA OF ABDOMEN WALL. ER PA CALLED ME AND I ASKED HER TO INSERT NGT SHE WILL NOT IMPROVE ON HER OWN. Hospital Course: MS. LAU HAD ANOTHER EPISODEOF BOWEL OBSTRUCTION. THIS WAS UNUSUAL WHERE THERE WAS NO BM FOR 5 DAYS, SHE HAD HYPERACTIVE BOWEL SOUNDS. SHE ALWAYS HAD SOME GAS PASSAGE. TODAY SHE HAD A FEW GOOD BM. INITIALLY SHE HAD FEW DAYS OF NGT WITH LIS. SHE WAS TOLD THAT THIS WAS INEFECTION BUT I AM NOT SURE. IF INFECTION IN GI TRACT THEN IT USUALLY GIVES DIARRHEA AND NOT BLOCKAGE. ALSO IF IT DOES SLOW DOWN BOWELS THEN THERE IS ILEUS BUT SHE DID NOT HAVE ILEUS. SHE HAD HYPERACITIVE BOWEL SOUNDS. Vital Signs/Physical Exam: Temp Pulse Resp BP Pulse Ox 97.4 F 103 H 19 124/62 90 L 08/19/20 16:00 08/19/20 16:00 08/19/20 16:00 08/19/20 16:00 08/19/20 16:00 General: Oriented x3 HEENT: Atraumatic, PERRLA, EOMI Neck: Supple, JVD not distended Respiratory: Clear to auscultation bilaterally, Normal air movement Cardiovascular: Regular rate/rhythm, Normal S1 S2 Gastrointestinal: Normal bowel sounds, No tenderness Musculoskeletal: No tenderness Integumentary: No rashes Neurological: Normal speech, Normal tone, Normal affect Lymphatics: No axilla or inguinal lymphadenopathy Laboratory Data at Discharge: WBC 6.8 K/uL (4.3-10.9) D 08/17/20 05:21 Hgb 12.9 g/dL (12.0-15.0) 08/17/20 05:21 Hct 37.9 % (36.0-45.0) 08/17/20 05:21 Plt Count 182 K/uL (152-406) 08/18/20 14:30 Sodium 141 mmol/L (136-145) 08/15/20 05:35 Potassium 4.1 mmol/L (3.5-5.1) 08/15/20 05:35 BUN 15 mg/dL (7-18) 08/15/20 05:35 Creatinine 0.82 mg/dL (0.55-1.3) 08/15/20 05:35 Glucose 93 mg/dL (74-106) 08/15/20 05:35 Total Bilirubin 0.5 mg/dL (0.2-1.0) 08/14/20 19:00 AST 19 U/L (15-37) 08/14/20 19:00 ALT 20 U/L (12-78) 08/14/20 19:00 Alkaline Phosphatase 78 U/L (45-117) 08/14/20 19:00 Lipase 91 U/L (73-393) 08/14/20 19:00 Home Medications: Alendronate Sodium [Fosamax] 70 mg PO Q7D 07/24/20 Atorvastatin Calcium [Lipitor*] 20 mg PO EVERY 7TH DAY 07/24/20 Levothyroxine [Synthroid*] 1 tab PO DAILY 07/24/20 Liothyronine Sodium [Cytomel] 1 tab PO DAILY 07/24/20 Docusate [Colace Cap*] 100 mg PO BID 08/14/20 Fluticasone [Flonase 50MCG Nasal [place]*] 1 spray IN BID 08/14/20 Mometasone/Formoterol [Dulera 100 Mcg-5 Mcg Inhaler] 2 inh IN BEDTIME 08/14/20 Tiotropium [place] [Spiriva Respimat] 2 in IN DAILY 08/14/20 Followup: Drew Parmar MD [Primary Care Provider] - 1 Week (Follow up in office in 1 week. Call to schedule an appointment.)
[2020-08-19] MEDS ORDERED: FLUTICASONE IH SCH (21:00)
[2020-08-20] MEDS ORDERED: LEVOTHYROXINE PO SCH (06:30)
[2020-08-20] MEDS ORDERED: LIOTHYRONINE SODIUM PO SCH (06:30)
[2020-08-20] MEDS ORDERED: TIOTROPIUM BROMIDE IH SCH (09:00)
== END 2020-08-19 17:00 | disposition home or self-care (01) | DRG 390 ==
LOC: ER 18:11 → ERHOLD 20:44 → 2ND 22:17 → OBSVTOIN 08-15 19:53
PROVIDERS: ADMIT Internal Medicine; ATTEND Internal Medicine
DX: K56.50 Intestinal adhesions [bands], unspecified as to partial versus complete obstruction (principal); J44.9 Chronic obstructive pulmonary disease, unspecified; E03.9 Hypothyroidism, unspecified; K43.9 Ventral hernia without obstruction or gangrene; Z88.1 Allergy status to other antibiotic agents; Z90.49 Acquired absence of other specified parts of digestive tract; Z79.890 Hormone replacement therapy; Z87.891 Personal history of nicotine dependence; Z79.899 Other long term (current) drug therapy; Z20.828 Contact with and (suspected) exposure to other viral communicable diseases
CPT/HCPCS: 36415; 74019; 74177; 80048; 80076; 83690; 85025; 85049; 96361; 96365; 96367; 96375; 99285; G0378; J0744; J1650; J2405; J7030; Q9967; U0002